=== PATIENT | male | born 1950 | race Caucasian/White ===

== ENCOUNTER 2019-06-15 10:13 | Emergency (ER) | payer BC, MEDICARE ==
--- NOTE | 2019-06-15 10:50 | XR ---
EXAMINATION TYPE: XR shoulder complete RT DATE OF EXAM: 06/15/2019 CLINICAL HISTORY: Right shoulder pain after fall TECHNIQUE: 2 views of the right shoulder are obtained. COMPARISON: None. FINDINGS: Anterior right shoulder dislocation is seen. No acute fracture is identified of the shoulde r. Visualized right ribs and lungs appear intact and unremarkable. Moderate acromioclavicular arthrop athy with downsloping spur of the distal acromion. IMPRESSION: Anterior right shoulder dislocation
[2019-06-15] MEDS ORDERED: ETOMIDATE 2 MG/ML 10 ML VIAL IVP STA (10:55)
--- NOTE | 2019-06-15 10:59 | ED ---
General Adult HPI - General Chief complaint: Extremity Injury, Upper Stated complaint: Fell shoulder dislocated Time Seen by Provider: 06/15/19 10:42 Source: patient, RN notes reviewed Mode of arrival: wheelchair Limitations: no limitations - History of Present Illness Initial comments: Patient is a pleasant 61-year-old male presenting to the emergency Department with complaints of right shoulder discomfort. Prior to arrival patient slipped on his deck and caught himself on a railing with his right arm. Patient felt his arm pop and believes that is out of socket. No history of similar symptoms previous. Patient has some tingling of his arm however does not have loss of sensation or weakness of the hand. No other areas of injury. No head injury or loss of consciousness. - Related Data Allergies Allergy/AdvReac Type Severity Reaction Status Date / Time No Known Allergies Allergy Verified 06/15/19 10:31 Review of Systems ROS Statement: Those systems with pertinent positive or pertinent negative responses have been documented in the HPI. ROS Other: All systems not noted in ROS Statement are negative. Constitutional: Denies: fever Eyes: Denies: eye pain ENT: Denies: ear pain Respiratory: Denies: cough Cardiovascular: Denies: chest pain Endocrine: Denies: fatigue Gastrointestinal: Denies: abdominal pain Genitourinary: Denies: dysuria Musculoskeletal: Reports: as per HPI. Denies: back pain Skin: Denies: rash Neurological: Denies: weakness Past Medical History Past Medical History: Hyperlipidemia, Hypertension, Myocardial Infarction ([place]) Additional Past Medical History / Comment(s): kidney transplant, heart problem History of Any Multi-Drug Resistant Organisms: None Reported Past Surgical History: Heart Catheterization Additional Past Surgical History / Comment(s): kidney transplant, dialysis shunt x 3 Past Psychological History: No Psychological Hx Reported Smoking Status: Never smoker Past Alcohol Use History: Daily Past Drug Use History: None Reported General Exam Limitations: no limitations General appearance: alert, in no apparent distress Head exam: Present: normocephalic Eye exam: Present: normal appearance, PERRL ENT exam: Present: normal oropharynx Neck exam: Present: normal inspection. Absent: tenderness Respiratory exam: Present: normal lung sounds bilaterally Cardiovascular Exam: Present: regular rate, normal rhythm Expanded Peripheral pulses: 2+: Radial (R) GI/Abdominal exam: Present: soft. Absent: tenderness Extremities exam: Present: other (Right anterior shoulder fullness and mild tenderness. Limited range of motion secondary to pain. Distally the extremity is neurovascularly intact.) Back exam: Present: normal inspection Neurological exam: Present: alert. Absent: motor sensory deficit Psychiatric exam: Present: normal affect, normal mood Skin exam: Present: normal color Course Vital Signs 06/15/19 06/15/19 06/15/19 10:32 11:21 11:35 Temperature 98.3 F 97.4 F L Pulse Rate 73 64 63 Respiratory 18 19 18 Rate Blood Pressure 145/71 140/73 135/79 O2 Sat by Pulse 96 98 100 Oximetry Procedures - Orthopedic Joint Reduction Joint #1 Consent Obtained: verbal consent Side: right Joint Reduction Location: shoulder Analgesia: procedural sedation Shoulder Technique Used (if applicable): traction/counter-traction Post-Reduction Neuro Exam: intact Post-Reduction Vascular Exam: intact Post Reduction X-Ray Obtained: Yes Post Reduction X-Ray Results: reduced Splint Applied: Yes Patient Tolerated Procedure: well, no complications - Procedural Sedation Procedural Sedation Start Time: 11:35 Procedural Sedation Stop Time: 12:00 Indications: fracture/dislocation reduction ASA Class: III Mallampati Airway Score: 2 Preparation: patient services rep applied, pulse oximeter, capnometry used IV Etomidate Dose (mgs): 20 Complications: none Interventions: oxygen applied Patient Tolerated Procedure: well, no complications Medical Decision Making - Radiology Data Radiology results: image reviewed (Right shoulder x-ray shows anterior inferior dislocation.) Disposition Clinical Impression: Dislocation of shoulder region Disposition: HOME SELF-CARE Condition: Stable Instructions (If sedation given, give patient instructions): Shoulder Dislocation (ED) Additional Instructions: Please follow-up with orthopedics in the next couple days for recheck. Also follow-up with primary care physician. Return for shoulder pain, weakness, sensation, worsening or changing symptoms or other concerns. Use sling provided. Is patient prescribed a controlled substance at d/c from ED?: No Referrals: Jose Antonio Escobar MD [Primary Care Provider] - 1-2 days Time of Disposition: 12:02
[2019-06-15] MEDS: HYDROmorphone 1 MG/ML 1 ML SYRINGE IVP STA (11:14)
[2019-06-15 11:23] VITALS: TEMP 97.4
--- NOTE | 2019-06-15 12:09 | XR ---
EXAMINATION TYPE: XR shoulder limited RT DATE OF EXAM: 06/15/2019 COMPARISON: NONE HISTORY: Post reduction TECHNIQUE: One view submitted FINDINGS: There is improved near anatomic alignment postreduction. Arthropathy of the shoulder noted. IMPRESSION: Near anatomic alignment postreduction
[2019-06-15 13:47] VITALS: BP 171/81; PULSE 72; RESP 16
== END 2019-06-15 13:45 | disposition home or self-care (01) ==
LOC: EC 10:13
DX: S43.004A Unspecified dislocation of right shoulder joint, initial encounter (principal); I10 Essential (primary) hypertension; I25.2 Old myocardial infarction; Z94.0 Kidney transplant status; X50.9XXA Other and unspecified overexertion or strenuous movements or postures, initial encounter
CPT/HCPCS: 73020; 73030; 99283; 23650; 99152; 99153; 96374; J1170

== ENCOUNTER → 2020-01-08 | Outpatient (CLI) | payer MEDICARE ==
--- NOTE | 2020-01-10 15:25 | PE ---
Nuclear medicine PET/CT HISTORY: Rectal carcinoma, initial Patient received 10.9 mCi F-18 FDG intravenously in delayed scanning was performed from the skull bas e to the mid thighs. Localization and attenuation correction CT scan was performed. No comparisons Neck and chest: There is no supraclavicular or cervical adenopathy. There is no mediastinal, axillary , or hilar adenopathy. There are coronary artery calcifications. There is a hiatal hernia present. Th ere is some thickening at the level of the hiatal hernia. Distal esophagus shows some associated hype rmetabolic uptake at this level. There is no evident lung mass, no pleural or pericardial effusion. ABDOMEN: There is no retroperitoneal adenopathy. No evident liver mass. Kidneys are atrophic and part ially calcified. Transplant kidney is present in the right lower quadrant. There is a large mass in the pelvis corresponding to the rectum measuring approximately 8.9 cm in AP dimension by 7.1 cm in transverse dimension. There is associated hypermetabolic uptake. No evident pe lvic adenopathy or free fluid. Osseous structures: Uptake in level of the proximal hamstring musculature may be due to posttraumatic change. No suspicious bone uptake is identified. Degenerative disc changes and facet arthropathy not ed in the lower lumbar spine. IMPRESSION: Distal esophageal uptake, recommend upper endoscopy. Findings compatible with patient's h istory of rectal carcinoma.
== END | disposition home or self-care (01) ==
LOC: RADPETMAIN 10:25
PROVIDERS: ATTEND Internal Medicine Hematology & Oncology
DX: C20 Malignant neoplasm of rectum (principal)
CPT/HCPCS: 78815; A9552

== ENCOUNTER 2020-04-21 09:26 | Inpatient (IN) | payer MEDICARE ==
[2020-04-20 12:16] VITALS: BMI 36.1
[~2020-04-21 09:26] MED LIST: ACETAMINOPHEN TAB 500 MG TAB PO ONE; DEXAMETHASONE SOD PHOSPHATE 4 MG/ML 1 ML VIAL IV ONE; HEPARIN SODIUM,PORCINE 5,000 UNIT/ML 1 ML VIAL SQ ONE; HYDROmorphone 0.5 MG/0.5 ML SYRINGE IVP PRN; LIDOCAINE 1% (10MG/ML) FOR IV START INTRADERMA PRN; ONDANSETRON 4 MG/2 ML VIAL IVP ONE; SCOPOLAMINE 1.5MG/72HR PATCH TRANSDERM ONE; metroNIDAZOLE-NS PMX 500 MG in SALINE 1 100ML.BAG IVPB ONE
[2020-04-21] MEDS: LACTATED RINGERS 1,000 ML IV SCH (10:20)
[2020-04-21 10:31] LABS: Glucose,Whole Blood 106 mg/dL (75-99)
[2020-04-21] MEDS ORDERED: fentaNYL (PF) 50 MCG/ML 2 ML AMP IVP ONE (10:49)
[2020-04-21] MEDS ORDERED: MIDAZOLAM 2 MG/2 ML VIAL IVP ONE (10:49)
[2020-04-21] MEDS ORDERED: NALOXONE 0.4 MG/ML 1 ML VIAL IV PRN (11:09)
--- NOTE | 2020-04-21 11:11 | P.ANPRN ---
Procedure Note - Anesthesia - Epidural/Spinal Epidural Continuous Date of Procedure: 04/21/20 Procedure Start Time: 10:49 Procedure Stop Time: 11:09 Location of Patient: PreOp Indication: Acute Post-Operative Pain, Analgesia, Requested by Surgeon Sedation Type: Sedate with meaningful contact maintained Preparation: Sterile Dressing Position: Sitting Catheter Depth at Skin (cm): 12 Catheter: Indwelling Needle Guage: 20 Injectate: Test Dose Lidocaine1.5% w/1:200,000 epi (3mL) Blood Aspirated: No Pain Paresthesia on Injection Noted: No Events: Uneventful and Well Tolerated
[2020-04-21 11:14] LABS: Calcium 9.3 mg/dL (8.4-10.2); Potassium 4.1 mmol/L (3.5-5.1)
[2020-04-21] MEDS ORDERED: ALVIMOPAN 12 MG CAPSULE PO ONE (11:23)
[2020-04-21] MEDS ORDERED: ROCURONIUM 10 MG/ML (10 ML VIAL) IV ONE (11:30)
[2020-04-21] MEDS ORDERED: NEOSTIGMINE 1 MG/ML 10 ML VIAL ONE (11:30)
[2020-04-21] MEDS ORDERED: PROPOFOL 10 MG/ML 20 ML VIAL IV ONE (11:30)
[2020-04-21] MEDS ORDERED: ePHEDrine SULFATE/0.9% NACL/PF 50 MG/5 ML SYRINGE IV ONE ×2 (11:30)
[2020-04-21] MEDS ORDERED: LIDOCAINE 1% INJ 10MG/ML (20 ML MDV) ONE (11:30)
[2020-04-21] MEDS ORDERED: HEPARIN SODIUM,PORCINE 5,000 UNIT/ML 1 ML VIAL ONE (11:30)
[2020-04-21] MEDS ORDERED: GLYCOPYRROLATE 0.2 MG/ML 2 ML VIAL ONE (11:30)
[2020-04-21] MEDS ORDERED: WATER FOR INJECTION, STERILE 10 ML VIAL IV ONE (11:30)
[2020-04-21 11:32] LABS: Anisocytosis Moderate; Basophils % (A) 0 %; Eosinophils % (A) 1 %; HCT 35.9 % (39.0-53.0); Hypochromasia Moderate; Lymphocytes # (A) 1.6 k/uL (1.0-4.8); Lymphocytes % (A) 23 %; MCH 27.8 pg (25.0-35.0); MCHC 30.8 g/dL (31.0-37.0); Monocytes # (A) 0.4 k/uL (0-1.0); Monocytes % (A) 5 %; Neutrophils # (A) 4.9 k/uL (1.3-7.7); Neutrophils % (A) 70 %; Platelet Count 204 k/uL (150-450); Poikilocytosis Slight; RBC 3.97 m/uL (4.30-5.90); RDW 20.7 % (11.5-15.5)
[2020-04-21] MEDS ORDERED: SODIUM CHLORIDE 0.9% 500 ML 500 ML IV ONE ×2 (11:35)
[2020-04-21 11:36] LABS: MCV 90.4 fL (80.0-100.0)
[2020-04-21] MEDS ORDERED: SODIUM CHLORIDE 0.9% 1,000 ML IV ONE (13:45)
[2020-04-21] MEDS ORDERED: LACTATED RINGERS 1,000 ML IV ONE ×2 (14:48→16:16)
--- NOTE | 2020-04-21 17:18 | P.OP ---
Date of Procedure: 04/21/20 Procedure(s) Performed: PREOPERATIVE DIAGNOSIS: Rectal cancer POSTOPERATIVE DIAGNOSIS: Same PROCEDURE: Abdominal perineal resection SURGEON: Shanell EBL: 200 mL ANESTHESIA: General COMPLICATIONS: None OPERATIVE PROCEDURE: Patient place in the operative table in the supine position. The patient was placed under general anesthesia. Patient was then placed in lithotomy. Sheldon catheter was placed and following that the scrotum was sutured to the abdominal wall using 2-0 Vicryl sutures. A 2-0 Vicryl purses tring suture at the anus was also utilized. The abdomen and perineum was prepped and draped in usual sterile fashion. A vertical incision was made extending from the supraumbilical location to the suprapubic location. The fascia was divided as well. A few small adhesions were identified and lysed using electrocautery. The Bookwalter retractor was utilized. The sigmoid colon was mobilized using electrocautery and blunt dissection. The patient in the mid sigmoid colon had a section of bowel that appeared somewhat firm and I was concerned about the possibility of an additional mass there. The bowel was divided just proximal to that location using a linear 75 stapler. The mesentery was divided using the LigaSure device and 0 silk ties. Our dissection took place down to the sacral promontory posteriorly. Care was taken to avoid injury to the right and left ureters. These were visualized during the dissection. The peritoneum was incised along the lateral gutters and anteriorly as well using electrocautery. Posterior dissection continued using both blunt dissection and the LigaSure device. Full mesorectal excision was performed. The lateral stalks were divided also using LigaSure device. Once we were able to reach posteriorly to the tip of the coccyx I went down to the perineum. A elliptical incision was made around the anus. The superficial tissues and muscular layers were divided using electrocautery. Posteriorly we were able to enter the pelvis. Blunt dissection ensued. Further dissection laterally took place using electrocautery and the LigaSure device. The size of the proximal colon would not fit through this defect in the pelvis because of the induration that was present. I divided the bowel at the distal sigmoid colon using the LigaSure device and stapler. We were then able to take the distal sigmoid colon and rectum and invert this into the perineum. The proximal bowel was passed off labeled sigmoid colon. The proximal portion of the staple line was marked using a silk suture. At that point the perineal portion of our resection continued using both LigaSure and electrocautery. The rectum was most adherent anteriorly and there was significant induration there. I was concerned that the malignancy was in this location. Hopefully we'll we were visualizing was post radiation effects. Care was taken to avoid injury to the prostatic urethra. In dissecting the rectum anteriorly 2 defects were seen anteriorly however no rectal wall was left in the pelvis. Specimen was passed off labeled rectum. Pelvic irrigation took place. One small area of bleeding was controlled using electrocautery. 2 drains were placed into the pelvis exiting through the right and left buttocks. These were sutured to the skin using a 3-0 silk stitch. Formal closure of the perineal layers then took place using inverted 2-0 Vicryl sutures. The skin was closed using a running 4-0 Vicryl suture. Sterile dressings were later applied. The abdominal portion was then readdressed. The drains were cut and placed within the pelvis. Again no further bleeding was seen. The peritoneal lining of the pelvis was reapproximated using a running 3- 0 Vicryl suture. We then mobilized the proximal sigmoid colon further until we had adequate length to reach the abdominal wall. We had marked preoperatively a location in the left midabdomen for permanent ostomy placement. A circular incision was made in the left midabdomen. Dissection through the subcutaneous fat and fascia took place using electrocautery. I bluntly entered the peritoneal cavity and this was further bluntly opened. The bowel was brought out through this defect in the left midabdomen. 3-0 silk sutures were used to suture the peritoneum to the colon. The small bowel and liver were palpated during the procedure and felt normal. The midline fascia was then reapproximated using 3 separate double-stranded #1 PDS sutures. The subcutaneous tissues were irrigated. The subcutaneous tissues were closed using 2-0 Vicryl sutures. The skin was then closed using mayra. The ostomy was then addressed. A portion of the pericolonic fat was removed using the LigaSure device. The staple line was then removed using electrocautery. The ostomy was then matured in a [place] fashion using interrupted 3-0 Vicryl sutures. An ostomy appliance was then applied. Sterile dressings were then applied to the midline incision. DISPOSITION: Stable to recovery room
[2020-04-21] MEDS: ROPIVACAINE 250 MG, HYDROMORPHONE (PF) 5 MG in SODIUM CHLORIDE 0.9% 200 ML EPIDURAL PRN (17:47)
[2020-04-21] MEDS: diphenhydrAMINE 50 MG/ML 1 ML VIAL IVP PRN (23:01)
[2020-04-21] MEDS: D5-0.45% NACL WITH KCL 20MEQ/L 1,000 ML IV SCH ×2 (23:01→23:02)
[2020-04-21] MEDS: FAMOTIDINE 20 MG/2 ML VIAL IV SCH (23:02)
[2020-04-22] MEDS: diphenhydrAMINE 50 MG/ML 1 ML VIAL IVP PRN ×3 (05:37→18:17)
--- NOTE | 2020-04-22 06:57 | P.PN ---
Progress Note - Text Date: 04/22/2020 Time: 06:58 The patient is status post, abdominal perineal resection, postoperative day number 1 The patient has no complaints of nausea vomiting or headache. The patient does not complain of any lower extremity numbness or weakness. The epidural is running at 8 mL per hour. VAS 0-1-10. The epidural will be maintained and adjusted as needed.
[2020-04-22 07:26] LABS: Anisocytosis Moderate; Basophils % (A) 0 %; Eosinophils % (A) 0 %; HCT 30.4 % (39.0-53.0); Hypochromasia Marked; Lymphocytes # (A) 1.1 k/uL (1.0-4.8); Lymphocytes % (A) 11 %; MCH 28.9 pg (25.0-35.0); MCHC 31.3 g/dL (31.0-37.0); MCV 92.4 fL (80.0-100.0); Mean Platelet Volume 7.9; Monocytes # (A) 0.6 k/uL (0-1.0); Monocytes % (A) 6 %; Neutrophils # (A) 8.3 k/uL (1.3-7.7); Neutrophils % (A) 83 %; Platelet Count 156 k/uL (150-450); Poikilocytosis Slight; RBC 3.29 m/uL (4.30-5.90); RDW 20.4 % (11.5-15.5)
[2020-04-22 07:35] LABS: HGB 9.5 gm/dL (13.0-17.5)
[2020-04-22] MEDS: FAMOTIDINE 20 MG/2 ML VIAL IV SCH ×2 (07:39→22:50)
[2020-04-22] MEDS: ALVIMOPAN 12 MG CAPSULE PO SCH ×2 (07:39→22:49)
[2020-04-22] MEDS: LACTATED RINGERS 1,000 ML IV SCH (07:39)
[2020-04-22] MEDS: HEPARIN SODIUM,PORCINE 5,000 UNIT/ML 1 ML VIAL SQ SCH ×4 (07:39→22:57)
[2020-04-22] MEDS: allopurinoL 100 MG TAB PO SCH ×2 (08:12→22:49)
[2020-04-22] MEDS: MULTIVITAMINS, THERA 1 EACH TAB PO SCH (08:12)
[2020-04-22] MEDS: METOPROLOL TARTRATE 50 MG TAB PO SCH ×2 (08:12→22:49)
[2020-04-22] MEDS: hydroCHLOROthiazide 12.5 MG CAP PO SCH (08:12)
[2020-04-22] MEDS: amLODIPine 5 MG TAB PO SCH (08:12)
[2020-04-22] MEDS: SERTRALINE 50 MG TAB PO SCH (08:12)
[2020-04-22] MEDS: ISOSORBIDE MONONITRATE ER 30 MG TAB.ER.24H PO SCH (08:12)
--- NOTE | 2020-04-22 08:22 | P.CONS ---
History of Present Illness - Reason for Consult Consult date: 04/22/20 - Chief Complaint Medical management rectal cancer - History of Present Illness This is a history and physical and consultation on a 70-year-old white male with known history of renal transplant who has developed rectal cancer. He is had chemotherapy and adjuvant treatment and is now postop day #1 abdominal perineal resection. The patient states appropriate pain control. We will restart home medications once nothing by mouth is cleared. Pain is nominal Review of Systems Constitutional: Denies chills, Denies fever Eyes: denies blurred vision, denies pain Ears, nose, mouth and throat: Denies headache, Denies sore throat Cardiovascular: Denies chest pain, Denies shortness of breath Respiratory: Denies cough Gastrointestinal: Denies abdominal pain, Denies diarrhea, Denies nausea, Denies vomiting Musculoskeletal: Denies myalgias Past Medical History Past Medical History: Cancer, Hyperlipidemia, Hypertension, Myocardial Infarction ([place]), Renal Disease Additional Past Medical History / Comment(s): kidney transplant, heart problem, radiation and chemo-last 03/17/20 for colorectal cancer/esophageal cancer, gout, Last Myocardial Infarction Date:: unknown History of Any Multi-Drug Resistant Organisms: None Reported Past Surgical History: Heart Catheterization Additional Past Surgical History / Comment(s): kidney transplant 2008, dialysis fistual x 3/later removed, nicky cataract with implants, colonoscopies, peritoneal dialysis catheter/later removed Past Anesthesia/Blood Transfusion Reactions: Motion Sickness Past Psychological History: No Psychological Hx Reported Smoking Status: Never smoker Past Alcohol Use History: None Reported Additional Past Alcohol Use History / Comment(s): quit smoking cigars 25 yrs ago Past Drug Use History: None Reported - Past Family History Sister(s) Family Medical History: Cancer Medications and Allergies Home Medications Medication Instructions Recorded Confirmed Type Acetaminophen [Tylenol] 500 mg PO HS 04/20/20 04/21/20 History Allopurinol [Zyloprim] 200 mg PO BID 04/20/20 04/21/20 History Aspirin [Adult Low Dose Aspirin EC] 81 mg PO DAILY 04/20/20 04/21/20 History Hydrochlorothiazide 12.5 mg PO QAM 04/20/20 04/21/20 History [hydroCHLOROthiazide] Isosorbide Mononitrate ER [Imdur] 30 mg PO DAILY 04/20/20 04/21/20 History Melatonin 5 mg PO HS 04/20/20 04/21/20 History Metoprolol Tartrate [Lopressor] 50 mg PO BID 04/20/20 04/21/20 History Multivitamins, Thera [Multivitamin 1 tab PO DAILY 04/20/20 04/21/20 History (formulary)] Pantoprazole Sodium [Protonix] 40 mg PO BID 04/20/20 04/21/20 History Sertraline [Zoloft] 50 mg PO DAILY 04/20/20 04/21/20 History amLODIPine [Norvasc] 5 mg PO DAILY 04/20/20 04/21/20 History cycloSPORINE [cycloSPORINE (GEQ 75 mg PO BID 04/20/20 04/21/20 History for SandIMMUNE)] predniSONE 5 mg PO BID 04/20/20 04/21/20 History Allergies Allergy/AdvReac Type Severity Reaction Status Date / Time No Known Allergies Allergy Verified 04/21/20 09:51 Physical Exam Vitals: Vital Signs Temp Pulse Pulse Resp BP BP Pulse Ox 04/22/20 07:00 98.3 F 89 18 129/64 95 04/22/20 02:15 98.2 F 82 16 121/59 95 04/22/20 00:40 82 04/21/20 20:15 82 103/56 93 L 04/21/20 20:00 85 102/59 94 L 04/21/20 19:45 80 108/60 94 L 04/21/20 19:30 86 106/59 97 04/21/20 19:15 91 108/64 97 04/21/20 19:00 88 105/64 97 04/21/20 18:45 87 109/62 97 04/21/20 18:30 97.5 F L 90 16 116/62 93 L 04/21/20 18:00 80 16 111/56 94 L 04/21/20 17:46 80 16 115/68 97 04/21/20 17:30 84 16 112/66 97 04/21/20 17:15 81 16 111/67 100 04/21/20 16:59 98.1 F 93 16 127/72 99 04/21/20 11:08 61 16 131/79 100 04/21/20 09:51 98.1 F 60 16 150/86 96 Intake and Output 04/21/20 04/22/20 04/22/20 22:59 06:59 14:59 Intake Total 764 Output Total 450 995 Balance 314 -995 Intake: IV 764 Output: Drainage 70 Lower Posterior lower 70 perineal area Urine 250 825 Stool 100 Estimated Blood Loss 200 Other: Voiding Method Indwelling Catheter Weight 111.1 kg - Constitutional General appearance: no acute distress - EENT Eyes: abnormal pupil - Neck Neck: no lymphadenopathy - Respiratory Respiratory: bilateral: CTA - Cardiovascular Rhythm: regular Heart sounds: normal: S1, S2 Abnormal Heart Sounds: no S3 Gallop - Gastrointestinal General gastrointestinal: soft, no tenderness - Integumentary Integumentary: no cellulitis - Neurologic Neurologic: CNII-XII intact Results CBC & Chem 7: 04/22/20 06:33 04/21/20 10:22 Labs: Abnormal Lab Results - Last 24 Hours (Table) 04/21/20 04/21/20 04/21/20 Range/Units 10:19 10:22 10:22 RBC 3.97 L (4.30-5.90) m/uL Hgb 11.0 L (13.0-17.5) gm/dL Hct 35.9 L (39.0-53.0) % MCHC 30.8 L (31.0-37.0) g/dL RDW 20.7 H (11.5-15.5) % Neutrophils # (1.3-7.7) k/uL Glucose 103 H (74-99) mg/dL POC Glucose (mg/dL) 106 H (75-99) mg/dL 04/22/20 Range/Units 06:33 RBC 3.29 L (4.30-5.90) m/uL Hgb 9.5 L D (13.0-17.5) gm/dL Hct 30.4 L (39.0-53.0) % MCHC (31.0-37.0) g/dL RDW 20.4 H (11.5-15.5) % Neutrophils # 8.3 H (1.3-7.7) k/uL Glucose (74-99) mg/dL POC Glucose (mg/dL) (75-99) mg/dL Assessment and Plan (1) History of rectal cancer Current Visit: Yes Status: Acute Code(s): Z85.048 - PRSNL HX OF MALIG NEOPLM OF RECTUM, RECTOSIG JUNCT, AND ANUS SNOMED Code(s): 557696218 (2) History of renal transplant Current Visit: Yes Status: Acute Code(s): Z94.0 - KIDNEY TRANSPLANT STATUS SNOMED Code(s): 196828412 Plan: DVT and GI prophylaxis per surgery. We'll go ahead and reconcile home medications once nothing by mouth is lifted. New graft check CBC and CMP in a.m. See orders otherwise. Dr. Ziegler's group will covering for the weekend.
[2020-04-22] MEDS: PANTOPRAZOLE 40 MG TABLET PO SCH ×2 (10:49→18:09)
[2020-04-22] MEDS: predniSONE 5 MG TAB PO SCH ×2 (10:49→22:57)
[2020-04-22] MEDS: cycloSPORINE 25 MG CAP PO SCH ×2 (10:49→22:57)
--- NOTE | 2020-04-22 11:20 | P.NPCON ---
History of Present Illness - Reason for Consult chronic renal failure - History of Present Illness Reason for consultation: Chronic kidney disease and renal transplant management History of present illness: A line patient is a 70-year-old male seen in renal consultation for chronic kidney disease and renal present management. Patient received a donor renal allograft in 2008. His baseline creatinine is in the range of 1-1.2. He is maintained on cyclosporine 75 mg twice daily and prednisone 5 mg twice daily at home. Patient has history of rectal cancer and underwent abdominal perineal resection yesterday. He now has a colostomy. He is maintained on IV fluids. Blood pressures controlled. Denies any pain. He's tolerating clear liquid diet. No chest pain or shortness of breath. No edema. No fever or chills. GFR is at baseline. Vital signs are stable. General: The patient appeared well nourished and normally developed. HEENT: Head exam is unremarkable. Neck is without jugular venous distension. LUNGS: Breath sounds decreased. HEART: Rate and Rhythm are regular. ABDOMEN: Soft, nontender. EXTREMITITES: No edema. Past Medical History Past Medical History: Cancer, Hyperlipidemia, Hypertension, Myocardial Infarction ([place]), Renal Disease Additional Past Medical History / Comment(s): kidney transplant, heart problem, radiation and chemo-last 03/17/20 for colorectal cancer/esophageal cancer, gout, Last Myocardial Infarction Date:: unknown History of Any Multi-Drug Resistant Organisms: None Reported Past Surgical History: Heart Catheterization Additional Past Surgical History / Comment(s): kidney transplant 2008, dialysis fistual x 3/later removed, nicky cataract with implants, colonoscopies, peritoneal dialysis catheter/later removed Past Anesthesia/Blood Transfusion Reactions: Motion Sickness Past Psychological History: No Psychological Hx Reported Smoking Status: Never smoker Past Alcohol Use History: None Reported Additional Past Alcohol Use History / Comment(s): quit smoking cigars 25 yrs ago Past Drug Use History: None Reported - Past Family History Sister(s) Family Medical History: Cancer Medications and Allergies Home Medications Medication Instructions Recorded Confirmed Type Acetaminophen [Tylenol] 500 mg PO HS 04/20/20 04/21/20 History Allopurinol [Zyloprim] 200 mg PO BID 04/20/20 04/21/20 History Aspirin [Adult Low Dose Aspirin EC] 81 mg PO DAILY 04/20/20 04/21/20 History Hydrochlorothiazide 12.5 mg PO QAM 04/20/20 04/21/20 History [hydroCHLOROthiazide] Isosorbide Mononitrate ER [Imdur] 30 mg PO DAILY 04/20/20 04/21/20 History Melatonin 5 mg PO HS 04/20/20 04/21/20 History Metoprolol Tartrate [Lopressor] 50 mg PO BID 04/20/20 04/21/20 History Multivitamins, Thera [Multivitamin 1 tab PO DAILY 04/20/20 04/21/20 History (formulary)] Pantoprazole Sodium [Protonix] 40 mg PO BID 04/20/20 04/21/20 History Sertraline [Zoloft] 50 mg PO DAILY 04/20/20 04/21/20 History amLODIPine [Norvasc] 5 mg PO DAILY 04/20/20 04/21/20 History cycloSPORINE [cycloSPORINE (GEQ 75 mg PO BID 04/20/20 04/21/20 History for SandIMMUNE)] predniSONE 5 mg PO BID 04/20/20 04/21/20 History Allergies Allergy/AdvReac Type Severity Reaction Status Date / Time No Known Allergies Allergy Verified 04/21/20 09:51 Physical Exam Vitals: Vital Signs Temp Pulse Pulse Resp BP Pulse Ox 04/22/20 08:00 80 89 18 04/22/20 07:00 98.3 F 89 18 129/64 95 04/22/20 02:15 98.2 F 82 16 121/59 95 04/22/20 00:40 82 04/21/20 20:15 82 103/56 93 L 04/21/20 20:00 85 102/59 94 L 04/21/20 19:45 80 108/60 94 L 04/21/20 19:30 86 106/59 97 04/21/20 19:15 91 108/64 97 04/21/20 19:00 88 105/64 97 04/21/20 18:45 87 109/62 97 04/21/20 18:30 97.5 F L 90 16 116/62 93 L 04/21/20 18:00 80 16 111/56 94 L 04/21/20 17:46 80 16 115/68 97 04/21/20 17:30 84 16 112/66 97 04/21/20 17:15 81 16 111/67 100 04/21/20 16:59 98.1 F 93 16 127/72 99 04/21/20 11:08 61 16 131/79 100 Intake and Output 04/21/20 04/22/20 04/22/20 22:59 06:59 14:59 Intake Total 764 Output Total 450 995 100 Balance 314 -995 -100 Intake: IV 764 Output: Drainage 70 Lower Posterior lower 70 perineal area Urine 250 825 Stool 100 100 Estimated Blood Loss 200 Other: Voiding Method Indwelling Catheter Indwelling Catheter Weight 111.1 kg Results - Lab Results Most recent lab results Calcium 9.3 mg/dL (8.4-10.2) 04/21/20 10:22 04/22/20 06:33 04/21/20 10:22 Assessment and Plan Plan: Assessment: 1. 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 Baseline creatinine 1-1.2. Currently at baseline. 2. Status post donor renal allograft in 2008. 3. History of rectal cancer status post abdominoperineal resection with colostomy. 4. Hypertension with chronic kidney disease. Controlled. Plan: Decreased rate of IV fluids to 75 mL an hour. Hep-Lock as Diet Is Advanced. Maintain cyclosporine and prednisone. Continue to monitor renal function and urine output. Thank you for the consultation. I will continue to follow the patient with you during his hospital stay.
[2020-04-22 11:29] LABS: Carbon Dioxide 22.2 mmol/L (21.6-31.8); Potassium 4.4 mmol/L (3.5-5.5)
[2020-04-22 11:30] LABS: African American GFR (CKD) 71.1 (60.0-200.0); Anion Gap 7.8 mmol/L (4.00-12.00); Calcium 8.5 mg/dL (8.7-10.3); Non-African American GFR(CKD) 61.3 (60.0-200.0)
--- NOTE | 2020-04-22 12:34 | P.PN ---
Subjective Progress Note Date: 04/22/20 Principal diagnosis: Rectal cancer Patient doing fairly well after abdominal perineal resection yesterday. Denies any significant pain. Adequate urine output. Drains serosanguineous in appearance. White blood cell count normal. Hemoglobin did drop somewhat to 9.5. Suspect dilution currently. Objective - Vital Signs Vital signs: Vital Signs Temp 98.3 F 04/22/20 07:00 Pulse 89 04/22/20 08:00 Resp 18 04/22/20 08:00 BP 129/64 04/22/20 07:00 Pulse Ox 95 04/22/20 07:00 Intake & Output 04/21/20 04/22/20 04/22/20 18:59 06:59 18:59 Intake Total 4314 Output Total 450 995 100 Balance 3864 -995 -100 Weight 111.1 kg Intake: IV 4314 Output: Drainage 70 Lower Posterior lower 70 perineal area Urine 250 825 Stool 100 100 Estimated Blood Loss 200 Other: Voiding Method Indwelling Catheter Indwelling Catheter - Exam Abdomen: Midline incision clean and dry, ostomy pink without activity, perineal incision without drainage - Labs CBC & Chem 7: 04/22/20 06:33 04/22/20 06:33 Labs: Abnormal Lab Results - Last 24 Hours (Table) 04/22/20 04/22/20 Range/Units 06:33 06:33 RBC 3.29 L (4.30-5.90) m/uL Hgb 9.5 L D (13.0-17.5) gm/dL Hct 30.4 L (39.0-53.0) % RDW 20.4 H (11.5-15.5) % Neutrophils # 8.3 H (1.3-7.7) k/uL Sodium 133 L (135-145) mmol/L Calcium 8.5 L (8.7-10.3) mg/dL Assessment and Plan (1) History of rectal cancer Narrative/Plan: Patient overall doing fairly well. Labs noted. Follow hemoglobin and creatinine. Continue liquid diet only for now. Keep Sheldon in place. Ambulate. Monitor perineal incision site for dehiscence. Current Visit: Yes Status: Acute Code(s): Z85.048 - PRSNL HX OF MALIG NEOPLM OF RECTUM, RECTOSIG JUNCT, AND ANUS SNOMED Code(s): 232345809
[2020-04-22] MEDS: D5-0.45% NACL WITH KCL 20MEQ/L 1,000 ML IV SCH (13:31)
[2020-04-22] MEDS: SODIUM CHLORIDE 0.9% 1,000 ML IV SCH (18:10)
[2020-04-22] MEDS: ROPIVACAINE 250 MG, HYDROMORPHONE (PF) 5 MG in SODIUM CHLORIDE 0.9% 200 ML EPIDURAL PRN (21:07)
[2020-04-22] MEDS: MELATONIN 5 MG TABLET PO SCH (22:49)
[2020-04-22] MEDS: ACETAMINOPHEN TAB 500 MG TAB PO SCH (22:50)
[2020-04-23] MEDS: HYDROmorphone 1 MG/ML 1 ML SYRINGE IVP PRN ×4 (01:32→22:28)
[2020-04-23 06:28] LABS: Anisocytosis Moderate; Basophils % (A) 0 %; Eosinophils # (A) 0.1 k/uL (0-0.7); Eosinophils % (A) 1 %; HCT 26.7 % (39.0-53.0); HGB 8.6 gm/dL (13.0-17.5); Hypochromasia Moderate; Lymphocytes % (A) 14 %; MCH 29.1 pg (25.0-35.0); MCV 90.9 fL (80.0-100.0); Mean Platelet Volume 8.9; Monocytes # (A) 0.3 k/uL (0-1.0); Monocytes % (A) 5 %; Neutrophils # (A) 5.7 k/uL (1.3-7.7); Neutrophils % (A) 79 %; Platelet Count 155 k/uL (150-450); Poikilocytosis Slight; RBC 2.94 m/uL (4.30-5.90); RDW 20.3 % (11.5-15.5); WBC 7.2 k/uL (3.8-10.6)
[2020-04-23] MEDS: LACTATED RINGERS 1,000 ML IV SCH (08:25)
[2020-04-23] MEDS: hydroCHLOROthiazide 12.5 MG CAP PO SCH (08:34)
[2020-04-23] MEDS: FAMOTIDINE 20 MG/2 ML VIAL IV SCH ×2 (08:34→22:05)
[2020-04-23] MEDS: MULTIVITAMINS, THERA 1 EACH TAB PO SCH (08:34)
[2020-04-23] MEDS: HEPARIN SODIUM,PORCINE 5,000 UNIT/ML 1 ML VIAL SQ SCH ×2 (08:34→15:07)
[2020-04-23] MEDS: ISOSORBIDE MONONITRATE ER 30 MG TAB.ER.24H PO SCH (08:35)
[2020-04-23] MEDS: METOPROLOL TARTRATE 50 MG TAB PO SCH ×2 (08:35→22:02)
[2020-04-23] MEDS: amLODIPine 5 MG TAB PO SCH (08:35)
[2020-04-23] MEDS: allopurinoL 100 MG TAB PO SCH ×2 (08:35→22:02)
[2020-04-23] MEDS: PANTOPRAZOLE 40 MG TABLET PO SCH ×2 (08:35→16:55)
[2020-04-23] MEDS: SERTRALINE 50 MG TAB PO SCH (08:35)
[2020-04-23] MEDS: ALVIMOPAN 12 MG CAPSULE PO SCH ×2 (08:35→22:02)
[2020-04-23] MEDS: cycloSPORINE 25 MG CAP PO SCH ×2 (08:36→22:03)
[2020-04-23] MEDS: predniSONE 5 MG TAB PO SCH (08:36)
[2020-04-23] MEDS: SODIUM CHLORIDE 0.9% 1,000 ML IV SCH (08:38)
[2020-04-23 09:42] LABS: Albumin/Globulin Ratio 1.67 (1.60-3.17); Anion Gap 4.5 mmol/L (4.00-12.00); BUN/Creat Ratio 17.27 Ratio (12.00-20.00); Calcium 8.4 mg/dL (8.7-10.3); Carbon Dioxide 26.5 mmol/L (21.6-31.8); Globulin 1.8 g/dL (1.6-3.3); Magnesium 1.7 mg/dL (1.5-2.4); Non-African American GFR(CKD) 68.1 (60.0-200.0); Total Protein 4.8 g/dL (6.2-8.2)
--- NOTE | 2020-04-23 11:52 | P.PN ---
Progress Note - Text Progress Note Date: 04/23/20 Patient resting comfortably in his bed. He is status post abdominal perineal resection. He has no complaints pain. On exam vital signs are stable. Abdomen soft. Incision site is clean dry tach. Colostomy has minimal gas in the appliance. Status post APR. Patient will continue have supportive care.
[2020-04-23] MEDS ORDERED: HYDROmorphone 0.5 MG/0.5 ML SYRINGE IVP PRN (13:50)
[2020-04-23] MEDS: ONDANSETRON 4 MG/2 ML VIAL IVP PRN (14:53)
--- NOTE | 2020-04-23 15:37 | PN ---
PROGRESS NOTE Patient is seen for followup for post-transplant care. His renal function is stable with serum creatinine staying at about 1.0-1.1 mg/dL. Patient has good urine output. He has an indwelling Sheldon catheter. PHYSICAL EXAMINATION: Blood pressure is 107/63, heart rate 65 per minute, he is afebrile. Examination of the heart S1, S2. Examination of the lungs, bilateral breath sounds are heard. Abdomen is soft, nontender. Examination of lower extremities shows no evidence of edema. [employer] exam grossly intact. LAB: Show hemoglobin 8.6, sodium 137, potassium 4.0, chloride 106, creatinine 1.1 mg/dL. ASSESSMENT: 1. Status post -donor kidney transplant in 2008. Maintained on cyclosporine and prednisone with stable renal function. 2. Rectal cancer status post abdominoperineal resection. Currently with a colostomy. PLAN: Continue current immunosuppressive medications. Follow up as outpatient. Monitor blood pressure. Avoid hypotension. MMODL / IJN: [id number] /
--- NOTE | 2020-04-23 18:52 | PN ---
PROGRESS NOTE DATE OF SERVICE: 04/23/2020 I am covering for Dr. Escobar. This 70-year-old gentleman admitted with rectal cancer, underwent abdominoperineal resection by Dr. Reece. The patient is closely monitored. No chest pain. No palpitations. No fever. PHYSICAL EXAMINATION: Alert and oriented x3. Pulse 72, blood pressure is 120/60, respiration 18, temperature 98.4, pulse ox 93% on room air. HEENT: Conjunctivae normal. Oral mucosa moist. NECK: No jugular venous distention. No lymph node enlargement. CARDIOVASCULAR: S1, S2, muffled. No S3, no S4, RESPIRATORY: Diminished breath sounds at the bases. No rhonchi, no crackles. ABDOMEN: Soft, nontender. Status post surgery. LEGS: No edema, no swelling. NERVOUS SYSTEM: No focal motor or sensory deficits. LABS: WBC 7.2, hemoglobin is 8.6, calcium is 8.4. ASSESSMENT: 1. Status post abdominoperineal resection for rectal cancer. 2. Anemia as expected postop. 3. History of renal transplantation. 4. Hyponatremia. 5. History of hyperlipidemia. 6. History of hypertension. 7. History of myocardial infarction. 8. History of gout. 9. History of cardiac catheterization. 10.History of motion sickness. 11.FULL CODE. RECOMMENDATIONS AND DISCUSSION: In this 70-year-old gentleman who presented with multiple complex medical issues, we will monitor the patient closely, continue the current management, continue symptomatic treatment. I recommend to monitor the hemoglobin serially. Otherwise, continue the rest of medications. Closely follow with surgery. Aspirin may be restarted when okay with Surgery and continue to monitor. Further recommendations to follow. MMODL / IJN: [id number] /
[2020-04-23] MEDS: METOCLOPRAMIDE 5 MG/ML 2 ML VIAL IVP PRN (19:41)
[2020-04-23] MEDS: MELATONIN 5 MG TABLET PO SCH (22:02)
[2020-04-23] MEDS: ACETAMINOPHEN TAB 500 MG TAB PO SCH (22:03)
[2020-04-23] MEDS: predniSONE 10 MG TAB PO SCH (22:05)
[2020-04-24] MEDS: HEPARIN SODIUM,PORCINE 5,000 UNIT/ML 1 ML VIAL SQ SCH ×3 (00:23→15:34)
[2020-04-24] MEDS: SODIUM CHLORIDE 0.9% 1,000 ML IV SCH ×2 (06:29→21:58)
[2020-04-24 06:49] LABS: Anisocytosis Moderate; Basophils % (A) 0 %; Eosinophils % (A) 1 %; HCT 27.7 % (39.0-53.0); HGB 8.8 gm/dL (13.0-17.5); Hypochromasia Moderate; Lymphocytes % (A) 18 %; MCHC 31.8 g/dL (31.0-37.0); MCV 91.1 fL (80.0-100.0); Mean Platelet Volume 7.8; Monocytes # (A) 0.3 k/uL (0-1.0); Monocytes % (A) 6 %; Neutrophils # (A) 4.3 k/uL (1.3-7.7); Neutrophils % (A) 75 %; Platelet Count 166 k/uL (150-450); RBC 3.04 m/uL (4.30-5.90); RDW 20.2 % (11.5-15.5); WBC 5.8 k/uL (3.8-10.6)
[2020-04-24] MEDS: LACTATED RINGERS 1,000 ML IV SCH (08:37)
[2020-04-24] MEDS: FAMOTIDINE 20 MG/2 ML VIAL IV SCH ×2 (08:42→21:50)
[2020-04-24] MEDS: allopurinoL 100 MG TAB PO SCH ×2 (08:43→21:50)
[2020-04-24] MEDS: ALVIMOPAN 12 MG CAPSULE PO SCH ×2 (08:43→21:50)
[2020-04-24] MEDS: PANTOPRAZOLE 40 MG TABLET PO SCH ×2 (08:43→17:03)
[2020-04-24] MEDS: SERTRALINE 50 MG TAB PO SCH (08:43)
[2020-04-24] MEDS: predniSONE 10 MG TAB PO SCH ×2 (08:43→21:51)
[2020-04-24] MEDS: hydroCHLOROthiazide 12.5 MG CAP PO SCH (08:43)
[2020-04-24] MEDS: MULTIVITAMINS, THERA 1 EACH TAB PO SCH (08:44)
[2020-04-24] MEDS: METOPROLOL TARTRATE 50 MG TAB PO SCH ×2 (08:44→21:50)
[2020-04-24] MEDS: cycloSPORINE 25 MG CAP PO SCH ×2 (08:44→21:50)
[2020-04-24] MEDS: amLODIPine 5 MG TAB PO SCH (08:44)
[2020-04-24] MEDS: ASPIRIN 81 MG PO SCH (08:44)
[2020-04-24] MEDS: ISOSORBIDE MONONITRATE ER 30 MG TAB.ER.24H PO SCH (08:44)
[2020-04-24 09:35] LABS: African American GFR (CKD) 100.6 (60.0-200.0); Anion Gap 8.2 mmol/L (4.00-12.00); BUN/Creat Ratio 15.56 Ratio (12.00-20.00); Calcium 8.5 mg/dL (8.7-10.3); Carbon Dioxide 26.8 mmol/L (21.6-31.8); Non-African American GFR(CKD) 86.8 (60.0-200.0); Potassium 3.7 mmol/L (3.5-5.5)
--- NOTE | 2020-04-24 10:20 | P.PN ---
Progress Note - Text Progress Note Date: 04/24/20 The patient has some complaints of incisional pain. Patient states his pain is also the peritoneum over his MORGAN drains are. On exam vital signs are stable. Abdomen soft. Incisions clean and intact. Status post abdominal perineal resection. Patient will receive supportive care.
[2020-04-24] MEDS: ONDANSETRON 4 MG/2 ML VIAL IVP PRN (10:53)
--- NOTE | 2020-04-24 13:31 | PN ---
PROGRESS NOTE Patient is seen for followup for post-transplant care. He is currently resting comfortably. He is maintained on clear liquid diet. Patient continues to have some drainage noted from his surgical drains. He does not complain of significant pain today. PHYSICAL EXAMINATION: Blood pressure is 151/75, heart rate 71 per minute, he is afebrile. Examination of the heart S1, S2. Examination of the lungs, bilateral breath sounds are heard. Abdomen is soft, minimal tenderness. Examination of lower extremities shows no edema. LAB: Show hemoglobin 8.8, sodium 141, potassium 3.7, BUN 14, serum creatinine 0.9. ASSESSMENT: 1. Status post -donor transplant, serum creatinine at baseline. Continue current immunosuppressive regimen. 2. Anemia secondary to gastrointestinal bleed with underlying colon cancer status post surgery. No active bleeding noted currently. Will check iron profile. 3. Hypertension, currently stable. PLAN: Continue current immunosuppressive medications. Check iron profile for possible IV iron prior to discharge. MMODL / IJN: [id number] /
[2020-04-24] MEDS: ACETAMINOPHEN TAB 500 MG TAB PO SCH (21:49)
[2020-04-24] MEDS: MELATONIN 5 MG TABLET PO SCH (21:50)
--- NOTE | 2020-04-24 22:59 | PN ---
PROGRESS NOTE DATE OF SERVICE: 04/24/2020 I am covering for Dr. Escobar. This 70-year-old gentleman who was admitted after abdominoperineal resection. Dr. Reece is improving significantly. The patient has complaints of abdominal pain, especially moving. No chest pain or palpitations. No fever. PHYSICAL EXAMINATION: On exam, alert and oriented x3. Pulse is 81, blood pressure 126/61, respiration 17, temperature 98.1, pulse ox 95% on room air. HEENT: Conjunctivae normal. CARDIOVASCULAR: S1, S2 muffled. RESPIRATORY: Breath sounds diminished at the bases. No rhonchi, no crackles. ABDOMEN: Soft, nontender. NERVOUS SYSTEM: No focal deficits. LABS: WBC 5.8, hemoglobin is 8.8. Calcium is 8.5. Other labs are noted. ASSESSMENT: 1. Status post abdominoperineal resection for rectal cancer. 2. Anemia as expected postop. 3. History of renal transplantation. 4. Hyponatremia. 5. History of hyperlipidemia. 6. History of hypertension. 7. History of myocardial infarction. 8. History of gout. 9. History of cardiac catheterization. 10.History of motion sickness. 11.FULL CODE. RECOMMENDATIONS AND DISCUSSION: Recommend to continue current medications, continue symptomatic treatment. Repeat labs in the morning. Otherwise, closely monitor along with Dr. Reece and Nephrology. Further recommendations to follow. Dr. Escobar will follow tomorrow. MMODL / IJN: [id number] /
[2020-04-25] MEDS: HEPARIN SODIUM,PORCINE 5,000 UNIT/ML 1 ML VIAL SQ SCH ×3 (01:23→17:55)
[2020-04-25 06:38] LABS: Anisocytosis Moderate; HCT 30.7 % (39.0-53.0); HGB 9.6 gm/dL (13.0-17.5); Hypochromasia Marked; MCH 28.6 pg (25.0-35.0); MCHC 31.4 g/dL (31.0-37.0); Platelet Count 216 k/uL (150-450); Poikilocytosis Slight; RBC 3.37 m/uL (4.30-5.90); RDW 20.2 % (11.5-15.5); WBC 5.4 k/uL (3.8-10.6)
[2020-04-25 07:53] LABS: Eosinophils # (M) 0.05 k/uL (0-0.7); Monocytes # (M) 0.32 k/uL (0-1.0); Neutrophils # (M) 4.32 k/uL (1.3-7.7); Neutrophils % (M) 80 %; Nucleated Red Blood Cells 0 /100 WBC (0-0); Polychromasia Present; Total Cells Counted 100
--- NOTE | 2020-04-25 07:53 | P.PN ---
Subjective Progress Note Date: 04/25/20 Principal diagnosis: Recovering from rectal cancer Discontinue proximal known on a 70-year-old white male essentially admitted for rectal cancer with continent surgical removal. The patient is doing quite well and has recently moved into the chair. Objective - Vital Signs Vital signs: Vital Signs Temp 98.5 F 04/25/20 01:00 Pulse 78 04/25/20 01:00 Resp 16 04/25/20 04:16 BP 146/76 04/25/20 01:00 Pulse Ox 96 04/25/20 01:00 Intake & Output 04/24/20 04/25/20 04/25/20 18:59 06:59 18:59 Intake Total 200 Output Total 1415 1000 Balance -1215 -1000 Intake: Intake, IV Titration 200 Amount Sodium Chloride 0.9% 1, 200 000 ml @ 50 mls/hr IV . Q20H [facility] Rx#:[id number] Output: Drainage 15 Lower Posterior lower 5 perineal area Upper Posterior Buttock 10 Urine 1400 1000 Uretheral (Sheldon) 1400 Other: Voiding Method Indwelling Catheter Indwelling Catheter - Constitutional General appearance: Present: average body habitus - Neck Neck: Absent: lymphadenopathy - Respiratory Respiratory: bilateral: CTA - Cardiovascular Rhythm: regular Heart sounds: normal: S1, S2 Abnormal Heart Sounds: Absent: S3 Gallop - Gastrointestinal General gastrointestinal: Present: soft. Absent: tenderness - Integumentary Integumentary: Absent: cyanotic, jaundiced - Psychiatric Psychiatric: Present: A&O x's 3 - Labs CBC & Chem 7: 04/25/20 06:15 04/24/20 06:14 Labs: Abnormal Lab Results - Last 24 Hours (Table) 04/24/20 04/25/20 Range/Units 06:14 06:15 RBC 3.37 L (4.30-5.90) m/uL Hgb 9.6 L (13.0-17.5) gm/dL Hct 30.7 L (39.0-53.0) % RDW 20.2 H (11.5-15.5) % Calcium 8.5 L (8.7-10.3) mg/dL Assessment and Plan (1) History of rectal cancer Current Visit: Yes Status: Acute Code(s): Z85.048 - PRSNL HX OF MALIG NEOPLM OF RECTUM, RECTOSIG JUNCT, AND ANUS SNOMED Code(s): 944303284 (2) History of renal transplant Current Visit: Yes Status: Acute Code(s): Z94.0 - KIDNEY TRANSPLANT STATUS SNOMED Code(s): 413400521 Plan: DVT and GI prophylaxis per surgery. We'll go ahead and reconcile home medications once nothing by mouth is lifted. See orders otherwise. .
[2020-04-25] MEDS: cycloSPORINE 25 MG CAP PO SCH ×2 (08:57→21:46)
[2020-04-25] MEDS: ALVIMOPAN 12 MG CAPSULE PO SCH ×2 (08:58→19:56)
[2020-04-25] MEDS: amLODIPine 5 MG TAB PO SCH (08:58)
[2020-04-25] MEDS: ISOSORBIDE MONONITRATE ER 30 MG TAB.ER.24H PO SCH (08:58)
[2020-04-25] MEDS: MULTIVITAMINS, THERA 1 EACH TAB PO SCH (08:58)
[2020-04-25] MEDS: allopurinoL 100 MG TAB PO SCH ×2 (08:58→19:55)
[2020-04-25] MEDS: predniSONE 10 MG TAB PO SCH ×2 (08:58→19:56)
[2020-04-25] MEDS: METOPROLOL TARTRATE 50 MG TAB PO SCH ×2 (08:58→19:55)
[2020-04-25] MEDS: SERTRALINE 50 MG TAB PO SCH (08:58)
[2020-04-25] MEDS: hydroCHLOROthiazide 12.5 MG CAP PO SCH (08:58)
[2020-04-25] MEDS: PANTOPRAZOLE 40 MG TABLET PO SCH ×2 (08:58→19:57)
[2020-04-25] MEDS: HYDROmorphone 1 MG/ML 1 ML SYRINGE IVP PRN ×3 (09:01→17:59)
[2020-04-25] MEDS: FAMOTIDINE 20 MG/2 ML VIAL IV SCH ×2 (09:02→19:56)
[2020-04-25] MEDS: ASPIRIN 81 MG PO SCH (09:07)
[2020-04-25] MEDS: ONDANSETRON 4 MG/2 ML VIAL IVP PRN (10:29)
[2020-04-25 11:01] LABS: % Iron Saturation 6.22 (15.00-50.00); African American GFR (CKD) 100.6 (60.0-200.0); Anion Gap 9.3 mmol/L (4.00-12.00); BUN/Creat Ratio 14.44 Ratio (12.00-20.00); Calcium 8.7 mg/dL (8.7-10.3); Carbon Dioxide 27.7 mmol/L (21.6-31.8); Non-African American GFR(CKD) 86.8 (60.0-200.0); Potassium 3.7 mmol/L (3.5-5.5)
[2020-04-25] MEDS: LACTATED RINGERS 1,000 ML IV SCH (12:20)
--- NOTE | 2020-04-25 14:58 | P.PN ---
Subjective Progress Note Date: 04/25/20 Principal diagnosis: Rectal cancer Patient seems to be doing better. He was confused over the weekend and pulled his epidural out. Since that time he says his pain has been poorly controlled at times. Sheldon catheter remains in place. Both drains with relatively low serosanguineous drainage. Ostomy is now functioning. Incisional dressing just changed. White blood cell count normal. He is afebrile. Objective - Vital Signs Vital signs: Vital Signs Temp 98.2 F 04/25/20 07:00 Pulse 69 04/25/20 07:00 Resp 17 04/25/20 07:00 BP 146/74 04/25/20 07:00 Pulse Ox 96 04/25/20 07:00 Intake & Output 04/24/20 04/25/20 04/25/20 18:59 06:59 18:59 Intake Total 200 Output Total 1415 1000 1005 Balance -1215 -1000 -1005 Intake: Intake, IV Titration 200 Amount Sodium Chloride 0.9% 1, 200 000 ml @ 50 mls/hr IV . Q20H [facility] Rx#:[id number] Output: Drainage 15 55 Lower Posterior lower 5 5 perineal area Upper Posterior Buttock 10 50 Urine 1400 1000 900 Uretheral (Sheldon) 1400 Stool 50 Other: Voiding Method Indwelling Catheter Indwelling Catheter Indwelling Catheter - Exam Abdomen: Soft, nondistended, dressing clean and dry, ostomy functioning Perineal incision clean and dry both drains in place - Labs CBC & Chem 7: 04/25/20 06:15 04/25/20 06:15 Labs: Abnormal Lab Results - Last 24 Hours (Table) 04/25/20 04/25/20 Range/Units 06:15 06:15 RBC 3.37 L (4.30-5.90) m/uL Hgb 9.6 L (13.0-17.5) gm/dL Hct 30.7 L (39.0-53.0) % RDW 20.2 H (11.5-15.5) % Lymphocytes # (Manual) 0.70 L (1.0-4.8) k/uL Iron 15 L (65-175) ug/dL % Saturation 6.22 L (15.00-50.00) Assessment and Plan (1) History of rectal cancer Narrative/Plan: Patient doing better at this time. Will increase diet. Ambulate as tolerated. Remove one of the two pelvic drains. Add [place] for pain control. Current Visit: Yes Status: Acute Code(s): Z85.048 - PRSNL HX OF MALIG NEOPLM OF RECTUM, RECTOSIG JUNCT, AND ANUS SNOMED Code(s): 969197202
[2020-04-25] MEDS: HYDROcodone/APAP 7.5-325MG 1 EACH TAB PO PRN (19:54)
[2020-04-25] MEDS: ACETAMINOPHEN TAB 500 MG TAB PO SCH (19:56)
[2020-04-25] MEDS: MELATONIN 5 MG TABLET PO SCH (19:56)
[2020-04-26] MEDS: SODIUM CHLORIDE 0.9% 1,000 ML IV SCH ×2 (00:36→16:27)
[2020-04-26] MEDS: HYDROcodone/APAP 7.5-325MG 1 EACH TAB PO PRN ×2 (00:41→20:15)
[2020-04-26] MEDS: HEPARIN SODIUM,PORCINE 5,000 UNIT/ML 1 ML VIAL SQ SCH ×4 (00:42→23:26)
[2020-04-26] MEDS: PANTOPRAZOLE 40 MG TABLET PO SCH ×2 (07:11→16:29)
[2020-04-26] MEDS: LACTATED RINGERS 1,000 ML IV SCH (08:01)
[2020-04-26] MEDS: SERTRALINE 50 MG TAB PO SCH (08:38)
[2020-04-26] MEDS: ASPIRIN 81 MG PO SCH (08:39)
[2020-04-26] MEDS: hydroCHLOROthiazide 12.5 MG CAP PO SCH (08:39)
[2020-04-26] MEDS: ISOSORBIDE MONONITRATE ER 30 MG TAB.ER.24H PO SCH (08:40)
[2020-04-26] MEDS: allopurinoL 100 MG TAB PO SCH ×2 (08:40→20:14)
[2020-04-26] MEDS: MULTIVITAMINS, THERA 1 EACH TAB PO SCH (08:40)
[2020-04-26] MEDS: amLODIPine 5 MG TAB PO SCH (08:41)
--- NOTE | 2020-04-26 08:41 | P.PN ---
Subjective Principal diagnosis: Recovering from rectal cancer Discontinue proximal known on a 70-year-old white male essentially admitted for rectal cancer with continent surgical removal. The patient is doing quite well and has recently moved into the chair. The patient states she has difficulty in transferring due to the significant pain Objective - Vital Signs Vital signs: Vital Signs Temp 97.8 F 04/26/20 07:00 Pulse 62 04/26/20 07:00 Resp 20 04/26/20 07:00 BP 150/55 04/26/20 07:00 Pulse Ox 97 04/26/20 07:00 Intake & Output 04/25/20 04/26/20 04/26/20 18:59 06:59 18:59 Intake Total 400 100 Output Total 2109 2019 Balance -1709 Intake: Intake, IV Titration 400 Amount Sodium Chloride 0.9% 1, 400 000 ml @ 50 mls/hr IV . Q20H [facility] Rx#:[id number] Oral 100 Output: Drainage 60 20 Lower Posterior lower 5 perineal area Upper Posterior Buttock 55 20 Urine 1999 1999 Uretheral (Sheldon) 1000 Stool 50 Other: Voiding Method Indwelling Catheter Indwelling Catheter Indwelling Catheter - Constitutional General appearance: Present: average body habitus - EENT Eyes: Absent: abnormal pupil - Neck Neck: Absent: lymphadenopathy - Respiratory Respiratory: bilateral: CTA - Cardiovascular Rhythm: regular Heart sounds: normal: S1, S2 Abnormal Heart Sounds: Absent: S3 Gallop - Gastrointestinal General gastrointestinal: Present: soft. Absent: tenderness - Labs CBC & Chem 7: 04/25/20 06:15 04/25/20 06:15 Labs: Abnormal Lab Results - Last 24 Hours (Table) 04/25/20 Range/Units 06:15 Iron 15 L (65-175) ug/dL % Saturation 6.22 L (15.00-50.00) Assessment and Plan (1) History of rectal cancer Current Visit: Yes Status: Acute Code(s): Z85.048 - PRSNL HX OF MALIG NEOPLM OF RECTUM, RECTOSIG JUNCT, AND ANUS SNOMED Code(s): 081013711 (2) History of renal transplant Current Visit: Yes Status: Acute Code(s): Z94.0 - KIDNEY TRANSPLANT STATUS SNOMED Code(s): 225969267 Plan: DVT and GI prophylaxis per surgery. I suspect discharge planning for appropriate home health versus ECF. Check CBC and CMP in a.m. We'll continue to follow with general surgery. The patient's pain is well- controlled this time.
[2020-04-26] MEDS: cycloSPORINE 25 MG CAP PO SCH ×2 (08:44→21:15)
[2020-04-26] MEDS: predniSONE 10 MG TAB PO SCH ×2 (08:44→20:14)
[2020-04-26] MEDS: METOPROLOL TARTRATE 50 MG TAB PO SCH ×2 (08:44→20:15)
[2020-04-26] MEDS: FAMOTIDINE 20 MG/2 ML VIAL IV SCH ×2 (08:46→20:32)
[2020-04-26] MEDS: ALVIMOPAN 12 MG CAPSULE PO SCH ×2 (09:56→20:32)
--- NOTE | 2020-04-26 15:04 | P.PN ---
Subjective Progress Note Date: 04/26/20 Principal diagnosis: Rectal cancer Patient seems to be doing somewhat better. Still complaining of discomfort when trying to sit up in bed. Pain is only in the abdomen. No perineal discomfort. One of the 2 drains removed yesterday. Second drain still with 20-30 mL per day. Sheldon catheter remains in place. Good urine output. Labs noted. Tolerating diet. Good ostomy function. Objective - Vital Signs Vital signs: Vital Signs Temp 97.8 F 04/26/20 07:00 Pulse 62 04/26/20 07:00 Resp 20 04/26/20 07:00 BP 150/55 04/26/20 07:00 Pulse Ox 97 04/26/20 07:00 Intake & Output 04/25/20 04/26/20 04/26/20 18:59 06:59 18:59 Intake Total 400 100 240 Output Total 21099 Balance -2274 -4925 -9746 Intake: Intake, IV Titration 400 Amount Sodium Chloride 0.9% 1, 400 000 ml @ 50 mls/hr IV . Q20H [facility] Rx#:[id number] Oral 100 240 Output: Drainage 60 20 Lower Posterior lower 5 perineal area Upper Posterior Buttock 55 20 Urine 1999 1999 2989 Uretheral (Sheldon) 1000 1622 Stool 50 Other: Voiding Method Indwelling Catheter Indwelling Catheter Indwelling Catheter - Exam Abdomen: Soft, nondistended, dressing clean and dry, ostomy functioning, mild tenderness Perineal incision clean and dry, drain in place - Labs CBC & Chem 7: 04/25/20 06:15 04/25/20 06:15 Assessment and Plan (1) History of rectal cancer Narrative/Plan: Patient overall doing well. Continue diet. Will remove Sheldon catheter today. Monitor drain output from second drain site. Possibly remove second drain prior to discharge. Continue increasing activity with physical therapy. Possible discharge in 24-48 hours with home care Current Visit: Yes Status: Acute Code(s): Z85.048 - PRSNL HX OF MALIG NEOPLM OF RECTUM, RECTOSIG JUNCT, AND ANUS SNOMED Code(s): 199684355
[2020-04-26] MEDS: ACETAMINOPHEN TAB 500 MG TAB PO SCH (20:14)
[2020-04-26] MEDS: MELATONIN 5 MG TABLET PO SCH (20:15)
[2020-04-26] MEDS: ONDANSETRON 4 MG/2 ML VIAL IVP PRN (23:11)
[2020-04-27] MEDS: LACTATED RINGERS 1,000 ML IV SCH (06:09)
[2020-04-27 07:15] LABS: Anisocytosis Slight; HCT 30.7 % (39.0-53.0); HGB 9.7 gm/dL (13.0-17.5); Hypochromasia Moderate; MCH 28.1 pg (25.0-35.0); MCHC 31.7 g/dL (31.0-37.0); MCV 88.5 fL (80.0-100.0); Mean Platelet Volume 7.6; Platelet Count 208 k/uL (150-450); Poikilocytosis Slight; RBC 3.47 m/uL (4.30-5.90); RDW 19.5 % (11.5-15.5); WBC 5.8 k/uL (3.8-10.6)
[2020-04-27] MEDS: PANTOPRAZOLE 40 MG TABLET PO SCH ×2 (07:15→17:30)
[2020-04-27] MEDS: HEPARIN SODIUM,PORCINE 5,000 UNIT/ML 1 ML VIAL SQ SCH ×2 (07:15→17:30)
[2020-04-27] MEDS: METOCLOPRAMIDE 5 MG/ML 2 ML VIAL IVP PRN (09:06)
[2020-04-27] MEDS: ISOSORBIDE MONONITRATE ER 30 MG TAB.ER.24H PO SCH (09:12)
[2020-04-27] MEDS: amLODIPine 5 MG TAB PO SCH (09:13)
[2020-04-27] MEDS: SERTRALINE 50 MG TAB PO SCH (09:13)
[2020-04-27] MEDS: cycloSPORINE 25 MG CAP PO SCH ×2 (09:13→20:07)
[2020-04-27] MEDS: MULTIVITAMINS, THERA 1 EACH TAB PO SCH (09:13)
[2020-04-27] MEDS: METOPROLOL TARTRATE 50 MG TAB PO SCH ×2 (09:13→20:07)
[2020-04-27] MEDS: ASPIRIN 81 MG PO SCH (09:13)
[2020-04-27] MEDS: allopurinoL 100 MG TAB PO SCH ×2 (09:13→20:08)
[2020-04-27] MEDS: hydroCHLOROthiazide 12.5 MG CAP PO SCH (09:13)
[2020-04-27] MEDS: FAMOTIDINE 20 MG/2 ML VIAL IV SCH (09:14)
[2020-04-27] MEDS: predniSONE 10 MG TAB PO SCH ×2 (09:14→20:07)
--- NOTE | 2020-04-27 10:22 | P.PN ---
Subjective Principal diagnosis: Recovering from rectal cancer Discontinue proximal known on a 70-year-old white male essentially admitted for rectal cancer with continent surgical removal. The patient is doing quite well and has recently moved into the chair. The patient states she has difficulty in transferring due to the significant pain.The patient states mild dizziness. I have told the patient that he needs to transfer out of the bed more slowly. Otherwise, he we anticipate discharge later today. Objective - Vital Signs Vital signs: Vital Signs Temp 98.2 F 04/27/20 07:41 Pulse 60 04/27/20 01:00 Resp 14 04/27/20 07:41 BP 120/71 04/27/20 07:41 Pulse Ox 92 L 04/27/20 01:00 Intake & Output 04/26/20 04/27/20 04/27/20 18:59 06:59 18:59 Intake Total 240 100 Output Total 3294 Balance -3054 100 Intake: Oral 240 100 Output: Drainage 5 Upper Posterior Buttock 5 Urine 3289 Uretheral (Sheldon) 1622 Other: Voiding Method Indwelling Catheter Toilet Toilet Urinal Urinal # Voids 1 - Constitutional General appearance: Present: average body habitus - EENT Eyes: Absent: abnormal pupil - Neck Neck: Absent: lymphadenopathy - Respiratory Respiratory: bilateral: CTA - Cardiovascular Rhythm: regular Heart sounds: normal: S1, S2 Abnormal Heart Sounds: Absent: S3 Gallop - Gastrointestinal General gastrointestinal: Present: soft. Absent: tenderness - Integumentary Integumentary: Absent: rash - Neurologic Neurologic: Present: CNII-XII intact - Labs CBC & Chem 7: 04/27/20 05:47 04/25/20 06:15 Labs: Abnormal Lab Results - Last 24 Hours (Table) 04/27/20 Range/Units 05:47 RBC 3.47 L (4.30-5.90) m/uL Hgb 9.7 L (13.0-17.5) gm/dL Hct 30.7 L (39.0-53.0) % RDW 19.5 H (11.5-15.5) % Assessment and Plan (1) History of rectal cancer Current Visit: Yes Status: Acute Code(s): Z85.048 - PRSNL HX OF MALIG NEOPLM OF RECTUM, RECTOSIG JUNCT, AND ANUS SNOMED Code(s): 702750239 (2) History of renal transplant Current Visit: Yes Status: Acute Code(s): Z94.0 - KIDNEY TRANSPLANT STATUS SNOMED Code(s): 503226459 Plan: Anticipate discharged later today. We'll continue to follow with general surgery. The patient's pain is well- controlled this time. Time with Patient: Less than 30
[2020-04-27 11:59] LABS: African American GFR (CKD) 71.1 (60.0-200.0); Albumin 3.7 g/dL (3.80-4.90); Albumin/Globulin Ratio 1.61 (1.60-3.17); Anion Gap 13.1 mmol/L (4.00-12.00); BUN/Creat Ratio 14.17 Ratio (12.00-20.00); Calcium 9.4 mg/dL (8.7-10.3); Carbon Dioxide 22.9 mmol/L (21.6-31.8); Globulin 2.3 g/dL (1.6-3.3); Non-African American GFR(CKD) 61.3 (60.0-200.0); Potassium 4.1 mmol/L (3.5-5.5); Total Bilirubin 0.8 mg/dL (0.3-1.2)
[2020-04-27] MEDS: ONDANSETRON 4 MG/2 ML VIAL IVP PRN (12:07)
--- NOTE | 2020-04-27 14:22 | P.PN ---
Subjective Progress Note Date: 04/27/20 CHIEF COMPLAINT: Rectal cancer HISTORY OF PRESENT ILLNESS: Patient is status post abdominal perineal resection on 04/21/2020. Patient seen and examined with Dr. Brock. Patient has been having some nausea. No vomiting. He's tolerating diet. MORGAN drain had 25 mL output for 24 hours. Patient urinating without difficulty. Sheldon catheter removed yesterday. Ostomy is functioning. Afebrile WBC 5.8 PHYSICAL EXAM: VITAL SIGNS: Reviewed. GENERAL: Well-developed in no acute distress. HEENT: No sclera icterus. Extraocular movements grossly intact. Moist buccal mucosa. Head is atraumatic, normocephalic. ABDOMEN: Soft. Nondistended. Dressing clean dry and intact. Ostomy functioning. Her new incision clean and dry. Gauze reapplied. MORGAN drain in place with serosanguineous fluid NEUROLOGIC: Alert and oriented. Cranial nerves II through XII grossly intact. ASSESSMENT: 1. Rectal cancer status post abdominal perineal resection PLAN: -Continue diet -Continue to monitor drain output. We'll assess possible removal of remaining drain tomorrow -Continue to work with physical therapy. -Possible discharge home tomorrow Physician Hand Shoe Cutter note has been reviewed by physician. Signing provider agrees with the documented findings, assessment, and plan of care. Objective - Vital Signs Vital signs: Vital Signs Temp 98.2 F 04/27/20 07:41 Pulse 60 04/27/20 01:00 Resp 14 04/27/20 07:41 BP 120/71 04/27/20 07:41 Pulse Ox 92 L 04/27/20 01:00 Intake & Output 04/26/20 04/27/20 04/27/20 18:59 06:59 18:59 Intake Total 240 100 Output Total 3294 Balance -3054 100 Intake: Oral 240 100 Output: Drainage 5 Upper Posterior Buttock 5 Urine 3289 Uretheral (Sheldon) 1622 Other: Voiding Method Indwelling Catheter Toilet Toilet Urinal Urinal # Voids 1 - Labs CBC & Chem 7: 04/27/20 05:47 04/27/20 05:47 Labs: Abnormal Lab Results - Last 24 Hours (Table) 04/27/20 04/27/20 Range/Units 05:47 05:47 RBC 3.47 L (4.30-5.90) m/uL Hgb 9.7 L (13.0-17.5) gm/dL Hct 30.7 L (39.0-53.0) % RDW 19.5 H (11.5-15.5) % Anion Gap 13.10 H (4.00-12.00) mmol/L AST 79 H (14-35) U/L ALT 89 H (10-49) U/L Alkaline Phosphatase 138 H (41-126) U/L Total Protein 6.0 L (6.2-8.2) g/dL Albumin 3.70 L (3.80-4.90) g/dL
[2020-04-27] MEDS: SODIUM CHLORIDE 0.9% 1,000 ML IV SCH (17:22)
[2020-04-27] MEDS: HYDROcodone/APAP 7.5-325MG 1 EACH TAB PO PRN (20:04)
[2020-04-27] MEDS: FAMOTIDINE 20 MG TAB PO SCH (20:07)
[2020-04-27] MEDS: MELATONIN 5 MG TABLET PO SCH (20:07)
[2020-04-27] MEDS: ACETAMINOPHEN TAB 500 MG TAB PO SCH (20:08)
[2020-04-28] MEDS: HYDROcodone/APAP 7.5-325MG 1 EACH TAB PO PRN ×2 (00:10→12:31)
[2020-04-28] MEDS: HEPARIN SODIUM,PORCINE 5,000 UNIT/ML 1 ML VIAL SQ SCH ×2 (00:12→09:41)
[2020-04-28 02:56] VITALS: PULSE 66
[2020-04-28 06:49] LABS: Anisocytosis Slight; Basophils % (A) 0 %; Eosinophils # (A) 0.1 k/uL (0-0.7); Eosinophils % (A) 1 %; HCT 33.1 % (39.0-53.0); HGB 10.3 gm/dL (13.0-17.5); Hypochromasia Moderate; Lymphocytes # (A) 1.4 k/uL (1.0-4.8); Lymphocytes % (A) 23 %; MCH 27.3 pg (25.0-35.0); MCHC 31.1 g/dL (31.0-37.0); Mean Platelet Volume 7.6; Monocytes # (A) 0.2 k/uL (0-1.0); Monocytes % (A) 4 %; Neutrophils # (A) 4.3 k/uL (1.3-7.7); Neutrophils % (A) 71 %; Platelet Count 229 k/uL (150-450); Poikilocytosis Slight; RBC 3.77 m/uL (4.30-5.90); RDW 19.4 % (11.5-15.5); WBC 6.1 k/uL (3.8-10.6)
[2020-04-28] MEDS: LACTATED RINGERS 1,000 ML IV SCH (07:51)
[2020-04-28 08:22] VITALS: RESP 16
--- NOTE | 2020-04-28 08:57 | P.PN ---
Subjective Principal diagnosis: Recovering from rectal cancer Discontinue proximal known on a 70-year-old white male essentially admitted for rectal cancer with continent surgical removal. The patient is doing quite well and has recently moved into the chair. The patient states she has difficulty in transferring due to the significant pain.The patient states mild dizziness. I have told the patient that he needs to transfer out of the bed more slowly. Otherwise, he we anticipate discharge later today. Objective - Vital Signs Vital signs: Vital Signs Temp 98.0 F 04/28/20 08:27 Pulse 66 04/28/20 02:55 Resp 16 04/28/20 08:27 BP 146/86 04/28/20 08:27 Pulse Ox 98 04/28/20 08:27 Intake & Output 04/27/20 04/28/20 04/28/20 18:59 06:59 18:59 Output Total 300 10 Balance -300 -10 Output: Drainage 10 Upper Posterior Buttock 10 Urine 300 Other: Voiding Method Toilet Toilet Urinal Urinal # Voids 0 1 - Constitutional General appearance: Present: average body habitus - EENT Eyes: Absent: abnormal pupil - Respiratory Respiratory: bilateral: CTA - Cardiovascular Rhythm: regular Heart sounds: normal: S1, S2 Abnormal Heart Sounds: Absent: S3 Gallop - Gastrointestinal General gastrointestinal: Present: soft. Absent: tenderness - Integumentary Integumentary: Absent: cellulitis - Musculoskeletal Musculoskeletal: Present: generalized weakness - Psychiatric Psychiatric: Present: A&O x's 3 - Labs CBC & Chem 7: 04/28/20 06:15 04/27/20 05:47 Labs: Abnormal Lab Results - Last 24 Hours (Table) 04/27/20 04/28/20 Range/Units 05:47 06:15 RBC 3.77 L (4.30-5.90) m/uL Hgb 10.3 L (13.0-17.5) gm/dL Hct 33.1 L (39.0-53.0) % RDW 19.4 H (11.5-15.5) % Anion Gap 13.10 H (4.00-12.00) mmol/L AST 79 H (14-35) U/L ALT 89 H (10-49) U/L Alkaline Phosphatase 138 H (41-126) U/L Total Protein 6.0 L (6.2-8.2) g/dL Albumin 3.70 L (3.80-4.90) g/dL Assessment and Plan (1) History of rectal cancer Current Visit: Yes Status: Acute Code(s): Z85.048 - PRSNL HX OF MALIG NEOPLM OF RECTUM, RECTOSIG JUNCT, AND ANUS SNOMED Code(s): 161176879 (2) History of renal transplant Current Visit: Yes Status: Acute Code(s): Z94.0 - KIDNEY TRANSPLANT STATUS SNOMED Code(s): 076725286 Plan: Hopefully patient will be discharged later today.. We'll continue to follow with general surgery. The patient's pain is well- controlled this time.
[2020-04-28] MEDS: predniSONE 10 MG TAB PO SCH (09:37)
[2020-04-28] MEDS: allopurinoL 100 MG TAB PO SCH (09:38)
[2020-04-28] MEDS: cycloSPORINE 25 MG CAP PO SCH (09:39)
[2020-04-28] MEDS: ISOSORBIDE MONONITRATE ER 30 MG TAB.ER.24H PO SCH (09:40)
[2020-04-28] MEDS: MULTIVITAMINS, THERA 1 EACH TAB PO SCH (09:40)
[2020-04-28] MEDS: hydroCHLOROthiazide 12.5 MG CAP PO SCH (09:40)
[2020-04-28] MEDS: ASPIRIN 81 MG PO SCH (09:40)
[2020-04-28] MEDS: FAMOTIDINE 20 MG TAB PO SCH (09:40)
[2020-04-28] MEDS: METOPROLOL TARTRATE 50 MG TAB PO SCH (09:41)
[2020-04-28] MEDS: amLODIPine 5 MG TAB PO SCH (09:41)
[2020-04-28] MEDS: PANTOPRAZOLE 40 MG TABLET PO SCH (09:51)
[2020-04-28] MEDS: SERTRALINE 50 MG TAB PO SCH (10:12)
[2020-04-28] MEDS: SODIUM CHLORIDE 0.9% 1,000 ML IV SCH (10:13)
[2020-04-28 10:19] LABS: African American GFR (CKD) 64.5 (60.0-200.0); Albumin 3.7 g/dL (3.80-4.90); Albumin/Globulin Ratio 1.61 (1.60-3.17); Anion Gap 9.2 mmol/L (4.00-12.00); BUN/Creat Ratio 17.69 Ratio (12.00-20.00); Calcium 9.3 mg/dL (8.7-10.3); Carbon Dioxide 25.8 mmol/L (21.6-31.8); Globulin 2.3 g/dL (1.6-3.3); Non-African American GFR(CKD) 55.7 (60.0-200.0); Potassium 4.3 mmol/L (3.5-5.5); Total Bilirubin 0.8 mg/dL (0.3-1.2)
[2020-04-28 13:10] VITALS: BP 130/69; TEMP 99.2
[2020-04-28] MEDS: ONDANSETRON 4 MG/2 ML VIAL IVP PRN (14:04)
--- NOTE | 2020-04-28 14:23 | P.DS ---
Providers Date of admission: 04/22/20 09:01 Expected date of discharge: 04/28/20 Attending physician: Ravi Reece Consults: 04/21/20 17:04 Consult Physician Routine Consulting Provider: Jose Antonio Escobar Consult Reason/Comments: medical management Do you want consulting provider notified?: Yes Consult Physician Routine Consulting Provider: Nahomy Lyons Consult Reason/Comments: history of renal transplant Do you want consulting provider notified?: Yes Primary care physician: Jose Antonio Escobar Hospital Course: Discharge diagnosis 1. Rectal cancer status post abdominal perineal resection 2. Elevated LFTs. We'll have patient check CMP in 1 week. Hospital course This is a 70-year-old male with known rectal cancer. He has finished his neoadjuvant chemoradiation treatment. He has history of esophageal cancer as well as a renal transplant. Patient is now status post abdominal perineal resection. His pain is controlled. He denies any nausea or vomiting. He is tolerating diet. He is up and ambulating. His ostomy is functioning. MORGAN drain was removed prior to discharge. He is afebrile. He is stable for discharge. Please refer to chart for any further details. Physician Welfare Case Worker note has been reviewed by physician. Signing provider agrees with the documented findings, assessment, and plan of care. Patient Condition at Discharge: Stable Plan - Discharge Summary Discharge Rx Participant: Yes New Discharge Prescriptions: New Docusate [Colace] 100 mg PO BID #30 capsule HYDROcodone/APAP 7.5-325MG [[place] 7.5-325] 1 tab PO Q4H PRN 3 Days #18 tab PRN Reason: Pain Continue Sertraline [Zoloft] 50 mg PO DAILY predniSONE 5 mg PO BID amLODIPine [Norvasc] 5 mg PO DAILY Metoprolol Tartrate [Lopressor] 50 mg PO BID cycloSPORINE [SandIMMUNE] 75 mg PO BID Aspirin [Adult Low Dose Aspirin EC] 81 mg PO DAILY Pantoprazole Sodium [Protonix] 40 mg PO BID Isosorbide Mononitrate ER [Imdur] 30 mg PO DAILY Allopurinol [Zyloprim] 200 mg PO BID Hydrochlorothiazide [hydroCHLOROthiazide] 12.5 mg PO QAM Multivitamins, Thera [Multivitamin (formulary)] 1 tab PO DAILY Acetaminophen [Tylenol] 500 mg PO HS Melatonin 5 mg PO HS Discharge Medication List Acetaminophen [Tylenol] 500 mg PO HS 04/20/20 [History] Allopurinol [Zyloprim] 200 mg PO BID 04/20/20 [History] Aspirin [Adult Low Dose Aspirin EC] 81 mg PO DAILY 04/20/20 [History] Hydrochlorothiazide [hydroCHLOROthiazide] 12.5 mg PO QAM 04/20/20 [History] Isosorbide Mononitrate ER [Imdur] 30 mg PO DAILY 04/20/20 [History] Melatonin 5 mg PO HS 04/20/20 [History] Metoprolol Tartrate [Lopressor] 50 mg PO BID 04/20/20 [History] Multivitamins, Thera [Multivitamin (formulary)] 1 tab PO DAILY 04/20/20 [History] Pantoprazole Sodium [Protonix] 40 mg PO BID 04/20/20 [History] Sertraline [Zoloft] 50 mg PO DAILY 04/20/20 [History] amLODIPine [Norvasc] 5 mg PO DAILY 04/20/20 [History] cycloSPORINE [SandIMMUNE] 75 mg PO BID 04/20/20 [History] predniSONE 5 mg PO BID 04/20/20 [History] Docusate [Colace] 100 mg PO BID #30 capsule 04/28/20 [Rx] HYDROcodone/APAP 7.5-325MG [[place] 7.5-325] 1 tab PO Q4H PRN 3 Days #18 tab 04/28/20 [Rx] Follow up Appointment(s)/Referral(s): [facility], [NON-STAFF] - Patient Instructions/Handouts: Colostomy Care (GEN), Colorectal Cancer (GEN) Activity/Diet/Wound Care/Special Instructions: Colostomy Care Instructions: Pouching system changed: 04.27.2020 [facility] to supply the following on discharge for transition to home: Convatec flanges moldable #[id number] ([facility]) Convatec pouches with filter #[id number] (three from the hospital) Osotmy powder No sting prep pads ([facility] ) Mr Adams is to empty the pouching system when the pouch is 1/3 to 1/2 full while sitting on the toilet or facing the toilet Mr Adams is to change the pouching system every 3-5 days or as otherwise directed by the surgeon or sign poster Mr Adams will be receiving additional sample supplies from [facility] in 5 - 6 days after discharge from the hospital No driving while taking [place] No lifting over 10 pounds You may shower. No soaking or tub baths for 2 weeks Very light activity until you are reevaluated at your follow up appointment with your surgeon Diet low fiber Discharge Disposition: HOME SELF-CARE
== END 2020-04-28 15:18 | disposition home or self-care (01) | DRG 330 ==
LOC: OR 09:26 → 4SSUR 17:35 → OR 04-22 09:01 → 4SSUR 04-22 09:01
PROVIDERS: ADMIT Surgery; ATTEND Surgery
PROC: 0DTP0ZZ Resection of Rectum, Open Approach (ICD-10-PCS; principal; 2020-04-21 11:15)
PROC: 0DBN0ZZ Excision of Sigmoid Colon, Open Approach (ICD-10-PCS; principal; 2020-04-21 11:15)
PROC: 0D1N0Z4 Bypass Sigmoid Colon to Cutaneous, Open Approach (ICD-10-PCS; principal; 2020-04-21 11:15)
PROC: 0DBQ0ZZ Excision of Anus, Open Approach (ICD-10-PCS; principal; 2020-04-21 11:15)
DX: C20 Malignant neoplasm of rectum (principal); E87.1 Hypo-osmolality and hyponatremia; Z94.0 Kidney transplant status; D50.0 Iron deficiency anemia secondary to blood loss (chronic); E78.5 Hyperlipidemia, unspecified; I12.9 Hypertensive chronic kidney disease with stage 1 through stage 4 chronic kidney disease, or unspecified chronic kidney disease; I25.2 Old myocardial infarction; N18.2 Chronic kidney disease, stage 2 (mild); Z79.52 Long term (current) use of systemic steroids; Z79.82 Long term (current) use of aspirin; Z79.899 Other long term (current) drug therapy; Z85.01 Personal history of malignant neoplasm of esophagus; Z92.21 Personal history of antineoplastic chemotherapy; Z92.3 Personal history of irradiation; M10.9 Gout, unspecified; Z98.42 Cataract extraction status, left eye; Z98.41 Cataract extraction status, right eye; Z96.1 Presence of intraocular lens
CPT/HCPCS: 80048; 80053; 83540; 83550; 83735; 85025; 85027; 86850; 86900; 86901; 88307; 88309

== ENCOUNTER 2020-05-06 05:29 | Inpatient (IN) | payer MEDICARE ==
[2020-05-06] MEDS ORDERED: SODIUM CHLORIDE 0.9% 1,000 ML IV STA (05:32)
[2020-05-06] MEDS ORDERED: MORPHINE SULFATE 4 MG/ML SYRINGE IV STA (05:32)
--- NOTE | 2020-05-06 05:40 | ED ---
Weakness HPI <Rafa Ashby - Last Filed: 05/06/20 08:04> - General Source: RN notes reviewed, old records reviewed Limitations: no limitations - History of Present Illness MD Complaint: generalized weakness, lack of energy Location: generalized Severity: moderate Severity scale (1-10): 5 Consistency: constant Improves with: none Worsens with: none Context: recent illness, recent surgery Associated Symptoms: chest pain, confusion, fever/chills, nausea/vomiting, myalgias, shortness of breath <Alexander Hayden - Last Filed: 05/07/20 01:38> - General Stated complaint: Weakness Time Seen by Provider: 05/06/20 05:30 - History of Present Illness Initial comments: This is a 70-year-old male for not feeling well, weakness, pain medication not working increased abdominal pain with history of abdominal surgery history of rectal cancer colon cancer, surgery this week. Patient also developed fever. No real shortness of breath no cough denies any rashes or dysuria, no nausea vomiting or diarrhea. Patient does have recent inpatient hospital stay (Alexander Hayden) - Related Data Home Medications Medication Instructions Recorded Confirmed Acetaminophen [Tylenol] 500 mg PO HS 04/20/20 05/06/20 Allopurinol [Zyloprim] 200 mg PO BID 04/20/20 05/06/20 Aspirin [Adult Low Dose Aspirin EC] 81 mg PO DAILY 04/20/20 05/06/20 Hydrochlorothiazide 12.5 mg PO DAILY 04/20/20 05/06/20 [hydroCHLOROthiazide] Isosorbide Mononitrate ER [Imdur] 30 mg PO DAILY 04/20/20 05/06/20 Melatonin 5 mg PO HS 04/20/20 05/06/20 Metoprolol Tartrate [Lopressor] 50 mg PO BID 04/20/20 05/06/20 Multivitamins, Thera [Multivitamin 1 tab PO DAILY 04/20/20 05/06/20 (formulary)] Pantoprazole Sodium [Protonix] 40 mg PO DAILY 04/20/20 05/06/20 Sertraline [Zoloft] 50 mg PO DAILY 04/20/20 05/06/20 amLODIPine [Norvasc] 5 mg PO DAILY 04/20/20 05/06/20 cycloSPORINE [SandIMMUNE] 75 mg PO BID 04/20/20 05/06/20 predniSONE 5 mg PO BID 04/20/20 05/06/20 Atorvastatin Calcium [Lipitor] 20 mg PO HS 05/06/20 05/06/20 HYDROcodone/APAP 10-325MG [Tamiment 1 tab PO Q4H PRN 05/06/20 05/06/20 10-325] Previous Rx's Medication Instructions Recorded Docusate [Colace] 100 mg PO BID #30 capsule 04/28/20 Allergies Allergy/AdvReac Type Severity Reaction Status Date / Time No Known Allergies Allergy Verified 05/06/20 07:20 Review of Systems ROS Other: All systems not noted in ROS Statement are negative. <Rafa Ashby - Last Filed: 05/06/20 08:04> ROS Other: All systems not noted in ROS Statement are negative. <Alexander Hayden - Last Filed: 05/07/20 01:38> ROS Statement: Those systems with pertinent positive or pertinent negative responses have been documented in the HPI. Past Medical History Past Medical History: Cancer, Hyperlipidemia, Hypertension, Myocardial Infarction (PA), Renal Disease Additional Past Medical History / Comment(s): kidney transplant, heart problem, radiation and chemo-last 03/17/20 for colorectal cancer/esophageal cancer, gout, Last Myocardial Infarction Date:: unknown History of Any Multi-Drug Resistant Organisms: None Reported Past Surgical History: Heart Catheterization Additional Past Surgical History / Comment(s): kidney transplant 2008, dialysis fistual x 3/later removed, nicky cataract with implants, colonoscopies, peritoneal dialysis catheter/later removed Past Anesthesia/Blood Transfusion Reactions: Motion Sickness Past Psychological History: No Psychological Hx Reported Smoking Status: Never smoker Past Alcohol Use History: None Reported Additional Past Alcohol Use History / Comment(s): quit smoking cigars 25 yrs ago Past Drug Use History: None Reported - Past Family History Sister(s) Family Medical History: Cancer Father Family Medical History: No Reported History Additional Family Medical History / Comment(s): Father was healthy Mother Family Medical History: No Reported History Additional Family Medical History / Comment(s): Mother was healthy <Alexander Hayden - Last Filed: 05/07/20 01:38> General Exam General appearance: alert, in no apparent distress Head exam: Present: atraumatic, normocephalic, normal inspection Eye exam: Present: normal appearance, PERRL, EOMI. Absent: scleral icterus, conjunctival injection, periorbital swelling ENT exam: Present: normal exam, mucous membranes moist Neck exam: Present: normal inspection. Absent: tenderness, meningismus, lymphadenopathy Respiratory exam: Present: normal lung sounds bilaterally. Absent: respiratory distress, wheezes, rales, rhonchi, stridor Cardiovascular Exam: Present: regular rate, normal rhythm, normal heart sounds. Absent: systolic murmur, diastolic murmur, rubs, gallop, clicks GI/Abdominal exam: Present: soft, normal bowel sounds. Absent: distended, tenderness, guarding, rebound, rigid Extremities exam: Present: normal inspection, full ROM, normal capillary refill. Absent: tenderness, pedal edema, joint swelling, calf tenderness Back exam: Present: normal inspection Neurological exam: Present: alert, oriented X3, CN II-XII intact Psychiatric exam: Present: normal affect, normal mood Skin exam: Present: warm, dry, intact, normal color. Absent: rash <Alexander Hayden - Last Filed: 05/07/20 01:38> Course <Alexander Hayden - Last Filed: 05/07/20 01:38> Vital Signs 05/06/20 05/06/20 05/06/20 05:45 07:54 08:56 Temperature 100.9 F H 99.4 F 98.2 F Pulse Rate 84 96 92 Respiratory 18 18 18 Rate Blood Pressure 137/62 119/58 121/64 O2 Sat by Pulse 98 96 96 Oximetry 05/06/20 09:13 Temperature 98.8 F Pulse Rate Respiratory Rate Blood Pressure O2 Sat by Pulse Oximetry - Reevaluation(s) Reevaluation #1: 05/06/20 06:23 Medical records reviewed (Alexander Hayden) EKG Findings - EKG Comments: EKG Findings:: EKG shows sinus 89 IA 178 QRS 80 QTc 423 <Alexander Hayden - Last Filed: 05/07/20 01:38> Medical Decision Making - Lab Data Result diagrams: 05/06/20 05:51 05/06/20 05:51 - Radiology Data Radiology results: report reviewed (Computed tomography scan abdomen pelvis does show possible seroma and some likely postoperative air, nothing acute as discussed with radiologist. There is liver metastases.) <Raaf Ashby - Last Filed: 05/06/20 08:04> - Lab Data Result diagrams: 05/06/20 05:51 05/06/20 05:51 <Alexander Hayden - Last Filed: 05/07/20 01:38> - Medical Decision Making Dr. Alberto paged to update. (Rafa Ashby) - Lab Data Lab Results 05/06/20 05/06/20 05/06/20 Range/Units 05:51 05:51 05:51 WBC 12.3 H (3.8-10.6) k/uL RBC 3.45 L (4.30-5.90) m/uL Hgb 9.4 L (13.0-17.5) gm/dL Hct 29.1 L (39.0-53.0) % MCV 84.2 (80.0-100.0) fL MCH 27.2 (25.0-35.0) pg MCHC 32.3 (31.0-37.0) g/dL RDW 19.7 H (11.5-15.5) % Plt Count 295 (150-450) k/uL MPV 8.3 Neutrophils % 88 % Lymphocytes % 7 % Monocytes % 4 % Eosinophils % 0 % Basophils % 0 % Neutrophils # 10.8 H (1.3-7.7) k/uL Lymphocytes # 0.8 L (1.0-4.8) k/uL Monocytes # 0.5 (0-1.0) k/uL Eosinophils # 0.0 (0-0.7) k/uL Basophils # 0.0 (0-0.2) k/uL Hypochromasia Slight Poikilocytosis Slight Anisocytosis Slight Microcytosis Slight PT 10.3 (9.0-12.0) sec INR 1.0 (<1.2) APTT 27.4 (22.0-30.0) sec Sodium (137-145) mmol/L Potassium (3.5-5.1) mmol/L Chloride (98-107) mmol/L Carbon Dioxide (22-30) mmol/L Anion Gap mmol/L BUN (9-20) mg/dL Creatinine (0.66-1.25) mg/dL Est GFR (CKD-EPI)AfAm (>60 ml/min/1.73 sqM) Est GFR (CKD-EPI)NonAf (>60 ml/min/1.73 sqM) Glucose (74-99) mg/dL Plasma Lactic Acid Amando (0.7-2.0) mmol/L Calcium (8.4-10.2) mg/dL Phosphorus (2.5-4.5) mg/dL Magnesium (1.6-2.3) mg/dL Ferritin (22.0-322.0) ng/mL Total Bilirubin (0.2-1.3) mg/dL AST (17-59) U/L ALT (4-49) U/L Alkaline Phosphatase (38-126) U/L Lactate Dehydrogenase (313-618) U/L Creatine Kinase (55-170) U/L Troponin I (0.000-0.034) ng/mL C-Reactive Protein (<10.0) mg/L NT-Pro-B Natriuret Pep pg/mL Total Protein (6.3-8.2) g/dL Albumin (3.5-5.0) g/dL Procalcitonin (0.02-0.09) ng/mL Urine Color Yellow Urine Appearance Clear (Clear) Urine pH 6.0 (5.0-8.0) Ur Specific [place] 1.016 (1.001-1.035) Urine Protein Trace H (Negative) Urine Glucose (UA) Negative (Negative) Urine Ketones Negative (Negative) Urine Blood Negative (Negative) Urine Nitrite Negative (Negative) Urine Bilirubin Negative (Negative) Urine Urobilinogen 2.0 (<2.0) mg/dL Ur Leukocyte Esterase Negative (Negative) Influenza Type A RNA (Not Detectd) Influenza Type B (PCR) (Not Detectd) 05/06/20 05/06/20 05/06/20 Range/Units 05:51 05:51 05:51 WBC (3.8-10.6) k/uL RBC (4.30-5.90) m/uL Hgb (13.0-17.5) gm/dL Hct (39.0-53.0) % MCV (80.0-100.0) fL MCH (25.0-35.0) pg MCHC (31.0-37.0) g/dL RDW (11.5-15.5) % Plt Count (150-450) k/uL MPV Neutrophils % % Lymphocytes % % Monocytes % % Eosinophils % % Basophils % % Neutrophils # (1.3-7.7) k/uL Lymphocytes # (1.0-4.8) k/uL Monocytes # (0-1.0) k/uL Eosinophils # (0-0.7) k/uL Basophils # (0-0.2) k/uL Hypochromasia Poikilocytosis Anisocytosis Microcytosis PT (9.0-12.0) sec INR (<1.2) APTT (22.0-30.0) sec Sodium 128 L (137-145) mmol/L Potassium 4.2 (3.5-5.1) mmol/L Chloride 97 L (98-107) mmol/L Carbon Dioxide 26 (22-30) mmol/L Anion Gap 5 mmol/L BUN 19 (9-20) mg/dL Creatinine 1.20 (0.66-1.25) mg/dL Est GFR (CKD-EPI)AfAm 71 (>60 ml/min/1.73 sqM) Est GFR (CKD-EPI)NonAf 62 (>60 ml/min/1.73 sqM) Glucose 158 H (74-99) mg/dL Plasma Lactic Acid Amando 1.6 (0.7-2.0) mmol/L Calcium 8.7 (8.4-10.2) mg/dL Phosphorus 3.1 (2.5-4.5) mg/dL Magnesium 1.4 L (1.6-2.3) mg/dL Ferritin (22.0-322.0) ng/mL Total Bilirubin 1.3 (0.2-1.3) mg/dL AST 57 (17-59) U/L ALT 81 H (4-49) U/L Alkaline Phosphatase 163 H (38-126) U/L Lactate Dehydrogenase (313-618) U/L Creatine Kinase 23 L (55-170) U/L Troponin I <0.012 (0.000-0.034) ng/mL C-Reactive Protein (<10.0) mg/L NT-Pro-B Natriuret Pep pg/mL Total Protein 5.7 L (6.3-8.2) g/dL Albumin 2.8 L (3.5-5.0) g/dL Procalcitonin (0.02-0.09) ng/mL Urine Color Urine Appearance (Clear) Urine pH (5.0-8.0) Ur Specific [place] (1.001-1.035) Urine Protein (Negative) Urine Glucose (UA) (Negative) Urine Ketones (Negative) Urine Blood (Negative) Urine Nitrite (Negative) Urine Bilirubin (Negative) Urine Urobilinogen (<2.0) mg/dL Ur Leukocyte Esterase (Negative) Influenza Type A RNA (Not Detectd) Influenza Type B (PCR) (Not Detectd) 05/06/20 05/06/20 05/06/20 Range/Units 05:51 06:23 06:30 WBC (3.8-10.6) k/uL RBC (4.30-5.90) m/uL Hgb (13.0-17.5) gm/dL Hct (39.0-53.0) % MCV (80.0-100.0) fL MCH (25.0-35.0) pg MCHC (31.0-37.0) g/dL RDW (11.5-15.5) % Plt Count (150-450) k/uL MPV Neutrophils % % Lymphocytes % % Monocytes % % Eosinophils % % Basophils % % Neutrophils # (1.3-7.7) k/uL Lymphocytes # (1.0-4.8) k/uL Monocytes # (0-1.0) k/uL Eosinophils # (0-0.7) k/uL Basophils # (0-0.2) k/uL Hypochromasia Poikilocytosis Anisocytosis Microcytosis PT (9.0-12.0) sec INR (<1.2) APTT (22.0-30.0) sec Sodium (137-145) mmol/L Potassium (3.5-5.1) mmol/L Chloride (98-107) mmol/L Carbon Dioxide (22-30) mmol/L Anion Gap mmol/L BUN (9-20) mg/dL Creatinine (0.66-1.25) mg/dL Est GFR (CKD-EPI)AfAm (>60 ml/min/1.73 sqM) Est GFR (CKD-EPI)NonAf (>60 ml/min/1.73 sqM) Glucose (74-99) mg/dL Plasma Lactic Acid Amando (0.7-2.0) mmol/L Calcium (8.4-10.2) mg/dL Phosphorus (2.5-4.5) mg/dL Magnesium (1.6-2.3) mg/dL Ferritin 85.5 (22.0-322.0) ng/mL Total Bilirubin (0.2-1.3) mg/dL AST (17-59) U/L ALT (4-49) U/L Alkaline Phosphatase (38-126) U/L Lactate Dehydrogenase 469 (313-618) U/L Creatine Kinase (55-170) U/L Troponin I (0.000-0.034) ng/mL C-Reactive Protein 335.0 H (<10.0) mg/L NT-Pro-B Natriuret Pep 574 pg/mL Total Protein (6.3-8.2) g/dL Albumin (3.5-5.0) g/dL Procalcitonin (0.02-0.09) ng/mL Urine Color Urine Appearance (Clear) Urine pH (5.0-8.0) Ur Specific [place] (1.001-1.035) Urine Protein (Negative) Urine Glucose (UA) (Negative) Urine Ketones (Negative) Urine Blood (Negative) Urine Nitrite (Negative) Urine Bilirubin (Negative) Urine Urobilinogen (<2.0) mg/dL Ur Leukocyte Esterase (Negative) Influenza Type A RNA Not Detected (Not Detectd) Influenza Type B (PCR) Not Detected (Not Detectd) 05/06/20 Range/Units 06:30 WBC (3.8-10.6) k/uL RBC (4.30-5.90) m/uL Hgb (13.0-17.5) gm/dL Hct (39.0-53.0) % MCV (80.0-100.0) fL MCH (25.0-35.0) pg MCHC (31.0-37.0) g/dL RDW (11.5-15.5) % Plt Count (150-450) k/uL MPV Neutrophils % % Lymphocytes % % Monocytes % % Eosinophils % % Basophils % % Neutrophils # (1.3-7.7) k/uL Lymphocytes # (1.0-4.8) k/uL Monocytes # (0-1.0) k/uL Eosinophils # (0-0.7) k/uL Basophils # (0-0.2) k/uL Hypochromasia Poikilocytosis Anisocytosis Microcytosis PT (9.0-12.0) sec INR (<1.2) APTT (22.0-30.0) sec Sodium (137-145) mmol/L Potassium (3.5-5.1) mmol/L Chloride (98-107) mmol/L Carbon Dioxide (22-30) mmol/L Anion Gap mmol/L BUN (9-20) mg/dL Creatinine (0.66-1.25) mg/dL Est GFR (CKD-EPI)AfAm (>60 ml/min/1.73 sqM) Est GFR (CKD-EPI)NonAf (>60 ml/min/1.73 sqM) Glucose (74-99) mg/dL Plasma Lactic Acid [place]ando (0.7-2.0) mmol/L Calcium (8.4-10.2) mg/dL Phosphorus (2.5-4.5) mg/dL Magnesium (1.6-2.3) mg/dL Ferritin (22.0-322.0) ng/mL Total Bilirubin (0.2-1.3) mg/dL AST (17-59) U/L ALT (4-49) U/L Alkaline Phosphatase (38-126) U/L Lactate Dehydrogenase (313-618) U/L Creatine Kinase (55-170) U/L Troponin I (0.000-0.034) ng/mL C-Reactive Protein (<10.0) mg/L NT-Pro-B Natriuret Pep pg/mL Total Protein (6.3-8.2) g/dL Albumin (3.5-5.0) g/dL Procalcitonin 0.32 H (0.02-0.09) ng/mL Urine Color Urine Appearance (Clear) Urine pH (5.0-8.0) Ur Specific [place] (1.001-1.035) Urine Protein (Negative) Urine Glucose (UA) (Negative) Urine Ketones (Negative) Urine Blood (Negative) Urine Nitrite (Negative) Urine Bilirubin (Negative) Urine Urobilinogen (<2.0) mg/dL Ur Leukocyte Esterase (Negative) Influenza Type A RNA (Not Detectd) Influenza Type B (PCR) (Not Detectd) Disposition Decision Time: 08:03 <Rafa Ashby - Last Filed: 05/06/20 08:04> Is patient prescribed a controlled substance at d/c from ED?: No <Alexander Hayden - Last Filed: 05/07/20 01:38> Clinical Impression: Fever, Dehydration, History of renal transplant, History of rectal cancer Disposition: ADMITTED IP TO THIS HOSP Condition: Fair
[2020-05-06 06:03] LABS: Anisocytosis Slight; Basophils % (A) 0 %; Eosinophils % (A) 0 %; HCT 29.1 % (39.0-53.0); HGB 9.4 gm/dL (13.0-17.5); Hypochromasia Slight; Lymphocytes # (A) 0.8 k/uL (1.0-4.8); Lymphocytes % (A) 7 %; MCH 27.2 pg (25.0-35.0); MCHC 32.3 g/dL (31.0-37.0); MCV 84.2 fL (80.0-100.0); Mean Platelet Volume 8.3; Microcytosis Slight; Monocytes # (A) 0.5 k/uL (0-1.0); Monocytes % (A) 4 %; Neutrophils # (A) 10.8 k/uL (1.3-7.7); Neutrophils % (A) 88 %; Platelet Count 295 k/uL (150-450); Poikilocytosis Slight; RBC 3.45 m/uL (4.30-5.90); RDW 19.7 % (11.5-15.5); WBC 12.3 k/uL (3.8-10.6)
[2020-05-06 06:06] LABS: Appearance,Urine Clear (Clear); Bilirubin,Urine Negative (Negative); Blood,Urine Negative (Negative); Color,Urine Yellow; Glucose,Urine (UA) Negative (Negative); Ketones,Urine Negative (Negative); Leukocyte Esterase,Urine Negative (Negative); Nitrite,Urine Negative (Negative); Protein,Urine Trace (Negative); Specific Gravity,Urine 1.016 (1.001-1.035)
[2020-05-06 06:21] LABS: Albumin 2.8 g/dL (3.5-5.0); Calcium 8.7 mg/dL (8.4-10.2); Magnesium 1.4 mg/dL (1.6-2.3); Phosphorus 3.1 mg/dL (2.5-4.5); Potassium 4.2 mmol/L (3.5-5.1); Total Bilirubin 1.3 mg/dL (0.2-1.3); Total Protein 5.7 g/dL (6.3-8.2)
[2020-05-06] MEDS ORDERED: ACETAMINOPHEN TAB 500 MG TAB PO STA (06:21)
[2020-05-06] MEDS ORDERED: KETOROLAC 15 MG/ML 1 ML VIAL IVP STA (06:21)
[2020-05-06] MEDS ORDERED: ALBUTEROL NEBULIZED 2.5 MG/3 ML INHALATION PRN (06:21)
[2020-05-06 06:26] LABS: Partial Thromboplastin Time 27.4 sec (22.0-30.0); Prothrombin Time 10.3 sec (9.0-12.0)
[2020-05-06] MEDS ORDERED: SODIUM CHLORIDE 0.9% 1,000 ML IV ONE (06:55)
--- NOTE | 2020-05-06 07:12 | XR ---
EXAM: XR Abdomen, 2 Views CLINICAL HISTORY: ITS.REASON XR Reason: pain TECHNIQUE: Frontal view of the abdomen/pelvis with upright view of the abdomen. COMPARISON: none available FINDINGS: Intraperitoneal space: No free air. Gastrointestinal tract: Unremarkable. No dilation. Moderate fecal burden throughout the colon. Bones/joints: Degenerative disc disease of the lumbar spine. Midline surgical mayra in place. IMPRESSION: Nonobstructive bowel gas pattern. Moderate fecal burden throughout the colon.
[2020-05-06] MEDS ORDERED: ZOLPIDEM 5 MG TAB PO PRN ×2 (07:52→07:53)
--- NOTE | 2020-05-06 07:58 | P.HPIM ---
History of Present Illness H&P Date: 05/06/20 Chief Complaint: Abdominal pain with back pain This is history and physical on 70-year-old white male status post colectomy related to colorectal cancer. The patient is struggling for the last 2 days with worsening back pain and abdominal pain. Appetite has been nominal but there is no worsening insomnia. No significant nausea, vomiting or diarrhea. Workup in the emergency room was done, coronavirus PCR is pending. The patient is essentially admitted for pain control. And coronavirus workup. Review of Systems Constitutional: Denies chills, Denies fever Eyes: denies blurred vision, denies pain Ears, nose, mouth and throat: Denies headache, Denies sore throat Cardiovascular: Denies chest pain, Denies shortness of breath Respiratory: Denies cough Gastrointestinal: Reports as per HPI, Reports abdominal pain Musculoskeletal: Denies myalgias Past Medical History Past Medical History: Cancer, Hyperlipidemia, Hypertension, Myocardial Infarction (ND), Renal Disease Additional Past Medical History / Comment(s): kidney transplant, heart problem, radiation and chemo-last 03/17/20 for colorectal cancer/esophageal cancer, gout, Last Myocardial Infarction Date:: unknown History of Any Multi-Drug Resistant Organisms: None Reported Past Surgical History: Heart Catheterization Additional Past Surgical History / Comment(s): kidney transplant 2008, dialysis fistual x 3/later removed, nicky cataract with implants, colonoscopies, peritoneal dialysis catheter/later removed Past Anesthesia/Blood Transfusion Reactions: Motion Sickness Past Psychological History: No Psychological Hx Reported Smoking Status: Never smoker Past Alcohol Use History: None Reported Additional Past Alcohol Use History / Comment(s): quit smoking cigars 25 yrs ago Past Drug Use History: None Reported - Past Family History Sister(s) Family Medical History: Cancer Medications and Allergies Home Medications Medication Instructions Recorded Confirmed Type Acetaminophen [Tylenol] 500 mg PO HS 04/20/20 05/06/20 History Allopurinol [Zyloprim] 200 mg PO BID 04/20/20 05/06/20 History Aspirin [Adult Low Dose Aspirin EC] 81 mg PO DAILY 04/20/20 05/06/20 History Hydrochlorothiazide 12.5 mg PO DAILY 04/20/20 05/06/20 History [hydroCHLOROthiazide] Isosorbide Mononitrate ER [Imdur] 30 mg PO DAILY 04/20/20 05/06/20 History Melatonin 5 mg PO HS 04/20/20 05/06/20 History Metoprolol Tartrate [Lopressor] 50 mg PO BID 04/20/20 05/06/20 History Multivitamins, Thera [Multivitamin 1 tab PO DAILY 04/20/20 05/06/20 History (formulary)] Pantoprazole Sodium [Protonix] 40 mg PO DAILY 04/20/20 05/06/20 History Sertraline [Zoloft] 50 mg PO DAILY 04/20/20 05/06/20 History amLODIPine [Norvasc] 5 mg PO DAILY 04/20/20 05/06/20 History cycloSPORINE [SandIMMUNE] 75 mg PO BID 04/20/20 05/06/20 History predniSONE 5 mg PO BID 04/20/20 05/06/20 History Docusate [Colace] 100 mg PO BID #30 capsule 04/28/20 05/06/20 Rx Atorvastatin Calcium [Lipitor] 20 mg PO HS 05/06/20 05/06/20 History HYDROcodone/APAP 10-325MG [[place] 1 tab PO Q4H PRN 05/06/20 05/06/20 History 10-325] Allergies Allergy/AdvReac Type Severity Reaction Status Date / Time No Known Allergies Allergy Verified 05/06/20 07:20 Physical Exam Vitals: Vital Signs Temp Pulse Resp BP Pulse Ox 05/06/20 07:54 99.4 F 96 18 119/58 96 05/06/20 05:45 100.9 F H 84 18 137/62 98 Intake and Output 05/05/20 05/06/20 05/06/20 22:59 06:59 14:59 Other: Weight 108.862 kg - Constitutional General appearance: no acute distress - EENT Eyes: EOMI - Neck Neck: no lymphadenopathy - Respiratory Respiratory: bilateral: CTA - Cardiovascular Rhythm: regular Heart sounds: normal: S1, S2 Abnormal Heart Sounds: no S3 Gallop - Gastrointestinal General gastrointestinal: soft, no tenderness - Musculoskeletal Musculoskeletal: generalized weakness - Psychiatric Psychiatric: A&O x's 3, appropriate affect Results CBC & Chem 7: 05/06/20 05:51 05/06/20 05:51 Labs: Abnormal Lab Results - Last 24 Hours (Table) 05/06/20 05/06/20 05/06/20 Range/Units 05:51 05:51 05:51 WBC 12.3 H (3.8-10.6) k/uL RBC 3.45 L (4.30-5.90) m/uL Hgb 9.4 L (13.0-17.5) gm/dL Hct 29.1 L (39.0-53.0) % RDW 19.7 H (11.5-15.5) % Neutrophils # 10.8 H (1.3-7.7) k/uL Lymphocytes # 0.8 L (1.0-4.8) k/uL Sodium 128 L (137-145) mmol/L Chloride 97 L (98-107) mmol/L Glucose 158 H (74-99) mg/dL Magnesium 1.4 L (1.6-2.3) mg/dL ALT 81 H (4-49) U/L Alkaline Phosphatase 163 H (38-126) U/L Creatine Kinase 23 L (55-170) U/L C-Reactive Protein (<10.0) mg/L Total Protein 5.7 L (6.3-8.2) g/dL Albumin 2.8 L (3.5-5.0) g/dL Urine Protein Trace H (Negative) 05/06/20 Range/Units 06:23 WBC (3.8-10.6) k/uL RBC (4.30-5.90) m/uL Hgb (13.0-17.5) gm/dL Hct (39.0-53.0) % RDW (11.5-15.5) % Neutrophils # (1.3-7.7) k/uL Lymphocytes # (1.0-4.8) k/uL Sodium (137-145) mmol/L Chloride (98-107) mmol/L Glucose (74-99) mg/dL Magnesium (1.6-2.3) mg/dL ALT (4-49) U/L Alkaline Phosphatase (38-126) U/L Creatine Kinase (55-170) U/L C-Reactive Protein 335.0 H (<10.0) mg/L Total Protein (6.3-8.2) g/dL Albumin (3.5-5.0) g/dL Urine Protein (Negative) Assessment and Plan (1) Insomnia Current Visit: Yes Status: Acute Code(s): G47.00 - INSOMNIA, UNSPECIFIED SNOMED Code(s): 534991214 (2) Coronavirus infection Current Visit: Yes Status: Acute Code(s): B34.2 - CORONAVIRUS INFECTION, UNSPECIFIED SNOMED Code(s): 137390134 (3) Dehydration Current Visit: Yes Status: Acute Code(s): E86.0 - DEHYDRATION SNOMED Code(s): 14606184 (4) History of rectal cancer Current Visit: Yes Status: Acute Code(s): Z85.048 - PRSNL HX OF MALIG NEOPLM OF RECTUM, RECTOSIG JUNCT, AND ANUS SNOMED Code(s): 284153925 (5) History of renal transplant Current Visit: Yes Status: Acute Code(s): Z94.0 - KIDNEY TRANSPLANT STATUS SNOMED Code(s): 731814760 Plan: Coronavirus PCR is pending. Check CBC and CMP in a.m. Reconcile medications. Consult surgery since she is so close to postoperative treatment. Dr. Ziegler's group will be covering for the weekend.
--- NOTE | 2020-05-06 08:07 | CT ---
EXAMINATION TYPE: CT abdomen pelvis w con DATE OF EXAM: 05/06/2020 COMPARISON: PET/CT 01/08/2020 HISTORY: Pain. History of rectal carcinoma CT DLP: 2307.4 mGycm CONTRAST: CT scan of the abdomen and pelvis is performed without Oral Contrast and with IV Contrast, patient in jected with 80 mL of Isovue 300. FINDINGS: LUNG BASES-: No visible nodule. No infiltrate. LIVER/GB: No calcified gallstones. Multiple hypoattenuating lesions of the liver felt to reflect me tastatic disease. Biliary tree is of normal caliber. PANCREAS: No inflammation. No distinct mass. SPLEEN: Splenomegaly measuring 16.7 cm craniocaudal dimension. No lesion seen. ADRENALS: No nodule. No thickening. KIDNEYS/BLADDER: Atrophic kidneys. Right pelvic kidney noted. No hydronephrosis. No nephrolithiasis . No distinct renal mass. Urinary bladder grossly unremarkable. BOWEL: There is evidence of pneumoperitoneum. The divergent colostomy is noted left lower quadrant. A t the patient's site of rectal neoplasm there is increased surrounding attenuation and several small foci of free air. The findings may be postsurgical in nature. Perforated neoplasm is not excluded. Sm all collection posterior to the prostate gland measures 2.5 cm and may reflect postoperative seroma. Small abscess is difficult to exclude. Correlate clinically. GENITAL ORGANS: No gross abnormality. LYMPH NODES: No greater than 1cm abdominal or pelvic lymph nodes are appreciated. AORTA: No significant abnormality. OSSEOUS STRUCTURES: No significant abnormality is seen. OTHER: No significant additional abnormality is seen. IMPRESSION: 1. Small amount of pneumoperitoneum and air about the rectal surgical site likely post surgical in na ture. Leak is difficult to entirely exclude however. Small fluid collection adjacent to the rectum ma y reflect seroma. Infected collection is not excluded. 2. There is evidence for liver metastases. 3. Splenomegaly.
[2020-05-06] MEDS ORDERED: AMPICILLIN-SULBACTAM 1.5 GM in SODIUM CHLORIDE 0.9% 50 ML IVPB STA (08:11)
[2020-05-06] MEDS ORDERED: AMPICILLIN-SULBACTAM 1.5 GM in SODIUM CHLORIDE 0.9% 50 ML IVPB SCH (08:15)
[2020-05-06] MEDS ORDERED: MORPHINE SULFATE 4 MG/ML SYRINGE IVP STA (09:12)
--- NOTE | 2020-05-06 09:55 | XR ---
EXAMINATION TYPE: XR chest 1V DATE OF EXAM: 05/06/2020 COMPARISON: Chest x-ray 04/03/2010 HISTORY: Fever TECHNIQUE: Single frontal view of the chest is obtained. FINDINGS: Technique is somewhat apical lordotic. There is no focal air space opacity, pleural effusio n, or pneumothorax seen. The cardiac silhouette size is showing heart to be upper limit of normal fo r size, may be technical. The osseous structures are intact. There are overlying cardiac leads. IMPRESSION: No acute process.
[2020-05-06 11:04] LABS: Ferritin 85.5 ng/mL (22.0-322.0)
[2020-05-06] MEDS ORDERED: HYDROmorphone 0.5 MG/0.5 ML SYRINGE IVP PRN (11:59)
--- NOTE | 2020-05-06 12:07 | P.GSCN ---
History of Present Illness Consult date: 05/06/20 Reason for Consult: Postoperative pain History of present illness: 70-year-old male well-known to our service. Patient underwent abdominal per ineal resection on 04/21. A was hospitalized for approximately one week postoperatively and was then discharged home. He was just seen in the office 2 days ago. Patient has had slightly more than expected abdominal discomfort since the very onset. When he was seen 2 days ago he did feel the pain was gradually improving post discharge. He was eating although less than normal amounts. Ostomy was functioning. He was afebrile. Came to the ER this morning with his significant other. He was apparently having increased fatigue. Was not getting out of his bed or chair. Appetite was more diminished. There was questionable confusion. He was having some shortness of breath as well. He was found to have a low-grade fever in the hospital. The patient did have confusion postoperatively with the use of narcotics last admission. CAT scan was obtained. CAT scan was reviewed. There are some inflammatory changes in the presacral space from the recent proctectomy. There are a few small air bubbles in that area. There are also some air bubbles in the abdomen consistent with residual pneumoperitoneum. The patient did not have any significant adhesions or need for any bowel resection at the time of his APR. No significant inflammatory changes of the bowel are evident. The ostomy appears to be healing nicely. New finding of liver masses unfortunately has been identified on this CAT scan. These were not seen intraoperatively nor were the identified on PET scan from December. White blood cell count elevated at 12.3. Lactic acid normal. Heart rate normal. T-max 100.9. Review of Systems The patient denies any acute changes in vision or hearing, no dysphagia or odynophagia, no dysuria or hematuria, no headache, no runny nose, no rectal bleeding or melena Past Medical History Past Medical History: Cancer, Chest Pain / Angina, GERD/Reflux, Hyperlipidemia, Hypertension, Renal Disease Additional Past Medical History / Comment(s): Recent diagnosis colorectal/esophageal cancer and has had chemo/radiation treatments then surgery on 04/22/20-abdominal peritoneal resection/colostomy. Other hx: CKD with past peritoneal/hemodialysis then R kidney transplant 06/22/2008, past skin cancers with removal, IBS, diverticular disease, benign colon polyps, gout bilateral feet, Last Myocardial Infarction Date:: unknown History of Any Multi-Drug Resistant Organisms: None Reported Past Surgical History: Heart Catheterization Additional Past Surgical History / Comment(s): 04/21/20 abdominal peritoneal resection/colostomy, colonoscopies, peritoneal catheter since removed, L arm fistula, 2009 R renal transplant, skin cancer removals. Past Anesthesia/Blood Transfusion Reactions: No Reported Reaction, Motion Sickness Smoking Status: Former smoker - Past Family History Sister(s) Family Medical History: Cancer Father Family Medical History: No Reported History Additional Family Medical History / Comment(s): Father was healthy Mother Family Medical History: No Reported History Additional Family Medical History / Comment(s): Mother was healthy Medications and Allergies Home Medications Medication Instructions Recorded Confirmed Type Acetaminophen [Tylenol] 500 mg PO HS 04/20/20 05/06/20 History Allopurinol [Zyloprim] 200 mg PO BID 04/20/20 05/06/20 History Aspirin [Adult Low Dose Aspirin EC] 81 mg PO DAILY 04/20/20 05/06/20 History Hydrochlorothiazide 12.5 mg PO DAILY 04/20/20 05/06/20 History [hydroCHLOROthiazide] Isosorbide Mononitrate ER [Imdur] 30 mg PO DAILY 04/20/20 05/06/20 History Melatonin 5 mg PO HS 04/20/20 05/06/20 History Metoprolol Tartrate [Lopressor] 50 mg PO BID 04/20/20 05/06/20 History Multivitamins, Thera [Multivitamin 1 tab PO DAILY 04/20/20 05/06/20 History (formulary)] Pantoprazole Sodium [Protonix] 40 mg PO DAILY 04/20/20 05/06/20 History Sertraline [Zoloft] 50 mg PO DAILY 04/20/20 05/06/20 History amLODIPine [Norvasc] 5 mg PO DAILY 04/20/20 05/06/20 History cycloSPORINE [SandIMMUNE] 75 mg PO BID 04/20/20 05/06/20 History predniSONE 5 mg PO BID 04/20/20 05/06/20 History Docusate [Colace] 100 mg PO BID #30 capsule 04/28/20 05/06/20 Rx Atorvastatin Calcium [Lipitor] 20 mg PO HS 05/06/20 05/06/20 History HYDROcodone/APAP 10-325MG [[place] 1 tab PO Q4H PRN 05/06/20 05/06/20 History 10-325] Allergies Allergy/AdvReac Type Severity Reaction Status Date / Time No Known Allergies Allergy Verified 05/06/20 07:20 Surgical - Exam Vital Signs Temp Pulse Resp BP Pulse Ox 100.9 F H 84 18 137/62 98 05/06/20 05:45 05/06/20 05:45 05/06/20 05:45 05/06/20 05:45 05/06/20 05:45 Physical exam: General: Well-developed, well-nourished HEENT: Normocephalic, sclerae nonicteric Abdomen: Minimal distention, mild diffuse tenderness, incision with some residual mayra, no peritoneal signs on exam at this time Perineum: Incision with mild induration, no significant erythema, mild tenderness, no drainage Extremities: No edema Neuro: Alert and oriented Results - Labs 05/06/20 05:51 05/06/20 05:51 Abnormal Lab Results - Last 24 Hours (Table) 05/06/20 05/06/20 05/06/20 Range/Units 05:51 05:51 05:51 WBC 12.3 H (3.8-10.6) k/uL RBC 3.45 L (4.30-5.90) m/uL Hgb 9.4 L (13.0-17.5) gm/dL Hct 29.1 L (39.0-53.0) % RDW 19.7 H (11.5-15.5) % Neutrophils # 10.8 H (1.3-7.7) k/uL Lymphocytes # 0.8 L (1.0-4.8) k/uL Sodium 128 L (137-145) mmol/L Chloride 97 L (98-107) mmol/L Glucose 158 H (74-99) mg/dL Magnesium 1.4 L (1.6-2.3) mg/dL ALT 81 H (4-49) U/L Alkaline Phosphatase 163 H (38-126) U/L Creatine Kinase 23 L (55-170) U/L C-Reactive Protein (<10.0) mg/L Total Protein 5.7 L (6.3-8.2) g/dL Albumin 2.8 L (3.5-5.0) g/dL Procalcitonin (0.02-0.09) ng/mL Urine Protein Trace H (Negative) 05/06/20 05/06/20 Range/Units 06:23 06:30 WBC (3.8-10.6) k/uL RBC (4.30-5.90) m/uL Hgb (13.0-17.5) gm/dL Hct (39.0-53.0) % RDW (11.5-15.5) % Neutrophils # (1.3-7.7) k/uL Lymphocytes # (1.0-4.8) k/uL Sodium (137-145) mmol/L Chloride (98-107) mmol/L Glucose (74-99) mg/dL Magnesium (1.6-2.3) mg/dL ALT (4-49) U/L Alkaline Phosphatase (38-126) U/L Creatine Kinase (55-170) U/L C-Reactive Protein 335.0 H (<10.0) mg/L Total Protein (6.3-8.2) g/dL Albumin (3.5-5.0) g/dL Procalcitonin 0.32 H (0.02-0.09) ng/mL Urine Protein (Negative) Diabetes panel 05/06/20 Range/Units 05:51 Sodium 128 L (137-145) mmol/L Potassium 4.2 (3.5-5.1) mmol/L Chloride 97 L (98-107) mmol/L Carbon Dioxide 26 (22-30) mmol/L BUN 19 (9-20) mg/dL Creatinine 1.20 (0.66-1.25) mg/dL Glucose 158 H (74-99) mg/dL Calcium 8.7 (8.4-10.2) mg/dL AST 57 (17-59) U/L ALT 81 H (4-49) U/L Alkaline Phosphatase 163 H (38-126) U/L Total Protein 5.7 L (6.3-8.2) g/dL Albumin 2.8 L (3.5-5.0) g/dL Calcium panel 05/06/20 Range/Units 05:51 Calcium 8.7 (8.4-10.2) mg/dL Phosphorus 3.1 (2.5-4.5) mg/dL Albumin 2.8 L (3.5-5.0) g/dL Pituitary panel 05/06/20 Range/Units 05:51 Sodium 128 L (137-145) mmol/L Potassium 4.2 (3.5-5.1) mmol/L Chloride 97 L (98-107) mmol/L Carbon Dioxide 26 (22-30) mmol/L BUN 19 (9-20) mg/dL Creatinine 1.20 (0.66-1.25) mg/dL Glucose 158 H (74-99) mg/dL Calcium 8.7 (8.4-10.2) mg/dL Adrenal panel 05/06/20 Range/Units 05:51 Sodium 128 L (137-145) mmol/L Potassium 4.2 (3.5-5.1) mmol/L Chloride 97 L (98-107) mmol/L Carbon Dioxide 26 (22-30) mmol/L BUN 19 (9-20) mg/dL Creatinine 1.20 (0.66-1.25) mg/dL Glucose 158 H (74-99) mg/dL Calcium 8.7 (8.4-10.2) mg/dL Total Bilirubin 1.3 (0.2-1.3) mg/dL AST 57 (17-59) U/L ALT 81 H (4-49) U/L Alkaline Phosphatase 163 H (38-126) U/L Total Protein 5.7 L (6.3-8.2) g/dL Albumin 2.8 L (3.5-5.0) g/dL Assessment and Plan (1) History of rectal cancer Narrative/Plan: 70-year-old male readmitted after recent APR. CAT scan findings reviewed with the patient, Dr. Escobar, and his significant other by phone. Small volume of pneumoperitoneum, inflammatory changes, and new findings of suspected liver metastasis reviewed. At this time agree with broad-spectrum antibiotics. Agree with infectious disease consult. No plans for reexploration currently. We'll monitor closely. Current Visit: Yes Status: Acute Code(s): Z85.048 - PRSNL HX OF MALIG NEOPLM OF RECTUM, RECTOSIG JUNCT, AND ANUS SNOMED Code(s): 364943336
[2020-05-06] MEDS: KETOROLAC 15 MG/ML 1 ML VIAL IVP SCH ×3 (12:54→23:17)
[2020-05-06] MEDS: amLODIPine 5 MG TAB PO SCH (13:47)
[2020-05-06] MEDS: hydroCHLOROthiazide 12.5 MG CAP PO SCH (13:48)
[2020-05-06] MEDS: ISOSORBIDE MONONITRATE ER 30 MG TAB.ER.24H PO SCH (13:49)
[2020-05-06] MEDS: allopurinoL 100 MG TAB PO SCH ×2 (13:55→21:09)
[2020-05-06] MEDS: MULTIVITAMINS, THERA 1 EACH TAB PO SCH (13:56)
[2020-05-06] MEDS: SERTRALINE 50 MG TAB PO SCH (13:56)
[2020-05-06] MEDS: ASPIRIN 81 MG PO SCH (13:56)
[2020-05-06] MEDS: DOCUSATE 100 MG CAP PO SCH ×2 (13:56→21:09)
[2020-05-06] MEDS: METOPROLOL TARTRATE 50 MG TAB PO SCH ×2 (13:57→21:09)
[2020-05-06] MEDS: cycloSPORINE 25 MG CAP PO SCH ×2 (13:57→21:09)
[2020-05-06] MEDS: PANTOPRAZOLE 40 MG TABLET PO SCH (14:26)
[2020-05-06] MEDS: predniSONE 5 MG TAB PO SCH ×2 (14:27→21:09)
[2020-05-06] MEDS: metroNIDAZOLE-NS PMX 500 MG in SALINE 1 100ML.BAG IVPB SCH ×2 (16:15→23:17)
[2020-05-06] MEDS: AMPICILLIN-SULBACTAM 1.5 GM in SODIUM CHLORIDE 0.9% 50 ML IVPB SCH ×2 (16:36→21:10)
[2020-05-06] MEDS: HYDROcodone/APAP 10-325MG 1 EACH TAB PO PRN (21:09)
[2020-05-06] MEDS: ATORVASTATIN 20 MG TAB PO SCH (21:09)
[2020-05-07] MEDS: AMPICILLIN-SULBACTAM 3 GM in SODIUM CHLORIDE 0.9% 50 ML IVPB SCH ×2 (01:31→06:11)
[2020-05-07 05:58] LABS: Anisocytosis Slight; HCT 29.4 % (39.0-53.0); HGB 9.3 gm/dL (13.0-17.5); Hypochromasia Moderate; MCHC 31.7 g/dL (31.0-37.0); MCV 85.1 fL (80.0-100.0); Mean Platelet Volume 7.5; Microcytosis Slight; Platelet Count 291 k/uL (150-450); Poikilocytosis Slight; RBC 3.45 m/uL (4.30-5.90); RDW 19.7 % (11.5-15.5); WBC 11.4 k/uL (3.8-10.6)
[2020-05-07] MEDS: KETOROLAC 15 MG/ML 1 ML VIAL IVP SCH ×4 (06:10→23:20)
--- NOTE | 2020-05-07 08:13 | CONS ---
CONSULTATION DATE OF SERVICE: 05/06/2020 REASON FOR CONSULTATION: Abdominal infection. HISTORY OF PRESENT ILLNESS: The patient is a 70-year-old male who is status post abdominoperitoneal resection on 04/21/2020. The patient was subsequently discharged home. The patient is now presenting back to the hospital with chief complaint of increasing pain in the abdominal area. Patient described the pain to be more of a dull aching, at times sharp in intensity, can be 6-7/10 and no radiation. The patient did have some nausea but no vomiting. Did have decreased oral intake. The patient did have some chills but denies high-grade fever. With these symptoms the patient was brought to the ER. The patient on admission to the hospital did have a low-grade fever. He did have a CT of abdominal and pelvis which did show some inflammatory changes the pre sacral space from recent and some residual pneumoperitoneum. The patient did have white count of 12.3. Influenza PCR was negative. Urine was negative. The patient was started on Unasyn 1.5 g q.6 hours. Infectious Disease was consulted for further management of antibiotic therapy. REVIEW OF SYSTEMS: Positive points have been mentioned in HPI. Rest of systems are negative. PAST MEDICAL HISTORY: Significant for hypertension, hyperlipidemia, [place], renal disease, history of kidney transplant, colorectal cancer. PAST SURGICAL HISTORY: Heart catheterization, kidney transplant, dialysis fistula, bilateral cataract with implant, colonoscopy and recent partial colectomy. SOCIAL HISTORY: No history of smoking. Quit cigars 25 years ago. No alcohol or drug use. FAMILY HISTORY: Sister with a history of cancer. ALLERGIES: No known drug allergies. MEDICATIONS: Include the patient is currently on [place], Ventolin, Zyloprim, Norvasc, Unasyn 1.5 g q.6 hours, aspirin, Lipitor, Cyclosporin, Colace, hydrochlorothiazide, Dilaudid, Imdur, Toradol, Lopressor, Zoloft, and Ambien. PHYSICAL EXAMINATION: Blood pressure is 118/72 with a pulse of 64, temperature 97.7, T-max is 100.9. She is 97% on room air. GENERAL DESCRIPTION: An elderly male lying in bed in no distress. No tachypnea or accessory muscle of respiration use. HEENT: Shows slight pallor. No scleral icterus. Oral mucous membranes are dry. No pharyngeal erythema or thrush. NECK: Trachea is central, no thyromegaly. LUNGS: Unlabored breathing, clear to auscultation anteriorly. No wheeze or crackle. HEART: S1, S2. Regular rate and rhythm. ABDOMEN: Soft, not distended, no guarding or rigidity. No organomegaly. EXTREMITIES: No edema of the feet. SKIN: Examination shows no rash or mass palpable. NEUROLOGICAL: Patient is awake, alert, oriented. Mood and affect normal. LABS: Hemoglobin 9.4, white count 12.3. BUN of 19, creatinine 1.20. mildly elevated. was elevated. Urine is negative. [place] PCR was negative. DIAGNOSTIC IMPRESSION: Patient admitted to the hospital with abdominal pain. Did have a low-grade fever in this patient who is status post recent surgery for colon, now with evidence of inflammatory changes but no evidence of any drainable abscess and new liver . Will need to cover for the enteric gram-negative with likely pathogen both aerobes and anaerobes. PLAN: 1. We will increase the dose of Unasyn to 3 g q.6 hours. 2. Gentle IV fluid. 3. Will follow as well as cultures to further adjust medication if needed. Thank you for this consultation. Will follow the patient along with you. MMODL / IJN: [id number] /
[2020-05-07] MEDS: METOPROLOL TARTRATE 50 MG TAB PO SCH ×2 (08:56→21:55)
[2020-05-07] MEDS: ASPIRIN 81 MG PO SCH (08:56)
[2020-05-07] MEDS: DOCUSATE 100 MG CAP PO SCH ×2 (08:56→21:55)
[2020-05-07] MEDS: ISOSORBIDE MONONITRATE ER 30 MG TAB.ER.24H PO SCH (08:56)
[2020-05-07] MEDS: PANTOPRAZOLE 40 MG TABLET PO SCH (08:56)
[2020-05-07] MEDS: cycloSPORINE 25 MG CAP PO SCH ×2 (08:57→21:55)
[2020-05-07] MEDS: hydroCHLOROthiazide 12.5 MG CAP PO SCH (08:57)
[2020-05-07] MEDS: predniSONE 5 MG TAB PO SCH ×2 (08:58→21:55)
[2020-05-07] MEDS: MULTIVITAMINS, THERA 1 EACH TAB PO SCH (08:58)
[2020-05-07] MEDS: SERTRALINE 50 MG TAB PO SCH (08:58)
[2020-05-07] MEDS: allopurinoL 100 MG TAB PO SCH ×2 (08:58→21:55)
[2020-05-07] MEDS: amLODIPine 5 MG TAB PO SCH (08:58)
[2020-05-07] MEDS: metroNIDAZOLE-NS PMX 500 MG in SALINE 1 100ML.BAG IVPB SCH ×3 (09:00→23:21)
[2020-05-07] MEDS: HYDROcodone/APAP 10-325MG 1 EACH TAB PO PRN ×2 (09:21→22:06)
[2020-05-07 09:30] LABS: African American GFR (CKD) 27.9 (60.0-200.0); Albumin 2.8 g/dL (3.80-4.90); Albumin/Globulin Ratio 1.4 (1.60-3.17); Anion Gap 11.6 mmol/L (4.00-12.00); BUN/Creat Ratio 11.54 Ratio (12.00-20.00); Calcium 8.2 mg/dL (8.7-10.3); Carbon Dioxide 22.4 mmol/L (21.6-31.8); Non-African American GFR(CKD) 24.1 (60.0-200.0); Potassium 5.9 mmol/L (3.5-5.5); Total Bilirubin 2.2 mg/dL (0.3-1.2); Total Protein 4.8 g/dL (6.2-8.2)
[2020-05-07] MEDS ORDERED: ONDANSETRON 4 MG/2 ML VIAL IVP PRN ×2 (10:57)
[2020-05-07 15:16] VITALS: BMI 35.4
[2020-05-07] MEDS ORDERED: MAGNESIUM HYDROXIDE 2,400 MG/10 ML CUP PO STA (16:04)
[2020-05-07] MEDS ORDERED: LACTULOSE 20 GM/30 ML CUP PO STA (16:04)
--- NOTE | 2020-05-07 16:04 | P.PN ---
Subjective Progress Note Date: 05/07/20 CHIEF COMPLAINT: Abdominal pain HISTORY OF PRESENT ILLNESS: The patient is a 70-year-old male status post APR with colostomy creation over 2 weeks ago. He reports mild improvement of his generalized abdominal pain following digital disimpaction of his ostomy per nursing. He reports constipation prior to his admission. He is eager to eat. He also reports improvement with antibiotics. ROS: No reports of nausea and vomiting. No fevers or chills. No new chest pain. PHYSICAL EXAM: VITAL SIGNS: Reviewed CONSTITUTIONAL: Well developed and in no acute distress. EYES: Conjuctivae without sclera icterus. Extraocular movements grossly intact. HEAD, EARS, NOSE, THROAT: Moist buccal mucosa. Head is atraumatic, normocephalic. Hears conversational speech. No nasal drainage. NECK: No rigidity RESPIRATORY: Non-labored respirations and equal bilateral excursions. CARDIOVASCULAR: Palpable 2+ radial pulses. ABDOMEN: Protuberant. Ostomy appliance left lower quadrant with formed stool and flatus MUSCULOSKELETAL: No gross deformity of the lower extremities noted. No clubbing. No cyanosis. SKIN: Good skin turgor. Well perfused. NEUROLOGIC: Cranial nerves II through XII grossly intact. No focal or lateralizing signs. PSYCH: Appropriate affect. Alert and oriented to person, place and time. CLINICAL LABS: WBC down from 12.3 to 11.4 STUDIES: CT of the abdomen and pelvis independently reviewed with multiple lesions along the liver. Post-surgical changes along the previous rectal site found. Moderate formed stool throughout colon. ASSESSMENT: 1. Generalized abdominal pain 2. Constipation 3. Rectal cancer 4. Liver lesions, suspicious for metastases 5. Pre-existing history of esophageal cancer 6. Morbid obesity, BMI 35.4 PLAN: 1. Laxative for constipation 2. Diet advance pending improvement of constipation 3. Continue IV antibiotics. Objective - Vital Signs Vital signs: Vital Signs Temp 98 F 05/07/20 12:07 Pulse 70 05/07/20 12:07 Resp 20 05/07/20 12:07 BP 100/66 05/07/20 12:07 Pulse Ox 96 05/07/20 12:07 Intake & Output 05/06/20 05/07/20 05/07/20 18:59 06:59 18:59 Intake Total 3050 1150 Output Total 200 Balance 3050 950 Weight 108.862 kg 108.862 kg Intake: Intake, IV Titration 650 1150 Amount Ampicillin-Sulbactam 1.5 50 gm In Sodium Chloride 0.9 % 50 ml @ 100 mls/hr IVPB ONCE STA Rx#:[id number] Sodium Chloride 0.9% 1, 500 1150 000 ml @ 100 mls/hr IV . Q10H ONE Rx#:[id number] metroNIDAZOLE-NS PMX 500 100 mg In Saline 1 100ml.bag @ 100 mls/hr IVPB Q8HR [facility] Rx#:[id number] Oral 2400 Output: Urine 200 Other: Voiding Method Toilet Urinal # Voids 5 - Labs CBC & Chem 7: 05/07/20 05:32 05/07/20 05:32 Labs: Abnormal Lab Results - Last 24 Hours (Table) 05/07/20 05/07/20 Range/Units 05:32 05:32 WBC 11.4 H (3.8-10.6) k/uL RBC 3.45 L (4.30-5.90) m/uL Hgb 9.3 L (13.0-17.5) gm/dL Hct 29.4 L (39.0-53.0) % RDW 19.7 H (11.5-15.5) % Sodium 133 L (135-145) mmol/L Potassium 5.9 H (3.5-5.5) mmol/L BUN 30.0 H (9.0-27.0) mg/dL Creatinine 2.6 H (0.6-1.5) mg/dL Est GFR (CKD-EPI)AfAm 27.9 L (60.0-200.0) Est GFR (CKD-EPI)NonAf 24.1 L (60.0-200.0) BUN/Creatinine Ratio 11.54 L (12.00-20.00) Ratio Calcium 8.2 L (8.7-10.3) mg/dL Total Bilirubin 2.2 H (0.3-1.2) mg/dL AST 47 H (14-35) U/L ALT 62 H (10-49) U/L Alkaline Phosphatase 149 H (41-126) U/L Total Protein 4.8 L (6.2-8.2) g/dL Albumin 2.80 L (3.80-4.90) g/dL Albumin/Globulin Ratio 1.40 L (1.60-3.17) g/dL Microbiology - Last 24 Hours (Table) 05/06/20 06:30 Blood Culture - Preliminary Blood No Growth after 24 hours Assessment and Plan (1) Rectal cancer Current Visit: Yes Status: Acute Code(s): C20 - MALIGNANT NEOPLASM OF RECTUM SNOMED Code(s): 978664723 (2) Morbid obesity due to excess calories Current Visit: Yes Status: Acute Code(s): E66.01 - MORBID (SEVERE) OBESITY DUE TO EXCESS CALORIES SNOMED Code(s): 665751070 (3) Leukocytosis Current Visit: Yes Status: Acute Code(s): D72.829 - ELEVATED WHITE BLOOD CELL COUNT, UNSPECIFIED SNOMED Code(s): 180943307 (4) Liver metastases Current Visit: Yes Status: Acute Code(s): C78.7 - SECONDARY MALIG NEOPLASM OF LIVER AND INTRAHEPATIC BILE DUCT SNOMED Code(s): 01155162 (5) Constipation Current Visit: Yes Status: Acute Code(s): K59.00 - CONSTIPATION, UNSPECIFIED SNOMED Code(s): 31713712 (6) Colostomy status Current Visit: Yes Status: Acute Code(s): Z93.3 - COLOSTOMY STATUS SNOMED Code(s): 226958039
[2020-05-07] MEDS: AMPICILLIN-SULBACTAM 3 GM in SODIUM CHLORIDE 0.9% 100 ML IVPB SCH (16:53)
[2020-05-07] MEDS: ATORVASTATIN 20 MG TAB PO SCH (21:55)
--- NOTE | 2020-05-07 22:08 | PN ---
PROGRESS NOTE DATE OF SERVICE: 05/07/2020 REASON FOR FOLLOWUP: Abdominal infection. INTERVAL HISTORY: Patient is currently afebrile. The patient is feeling slightly better today. His abdominal pain has improved. No chest pain, shortness of breath or cough. No abdominal pain. No diarrhea. PHYSICAL EXAMINATION: Blood pressure 100/66, pulse of 78, temperature 98. He is 93% on room air. General description is an elderly male lying in bed in no distress. Respiratory system: Unlabored breathing. Clear to auscultation anteriorly. Heart S1, S2. Regular rate and rhythm. ABDOMEN: Soft. Mildly distended. No guarding. No rigidity. . LABS: Hemoglobin 9.8, white count 29.4, with a BUN of 30, creatinine is 2.6. DIAGNOSTIC IMPRESSION AND PLAN: Patient with abdominal wound infection with recent partial colectomy in this patient who seemed to have shown some clinical improvement. White count improved. However, the patient did have significant worsening of his kidney function. He will be monitored closely. May benefit from gentle IV fluid and continue with supportive care. MMODL / IJN: [id number] /
[2020-05-08] MEDS ORDERED: DEXAMETHASONE SOD PHOSPHATE 10 MG/ML 1 ML VIAL IV STA (00:55)
[2020-05-08] MEDS ORDERED: TRIMETHOBENZAMIDE 100 MG/ML 2 ML VIAL IM STA (00:58)
[2020-05-08] MEDS: AMPICILLIN-SULBACTAM 3 GM in SODIUM CHLORIDE 0.9% 100 ML IVPB SCH ×2 (06:09→17:13)
[2020-05-08] MEDS: KETOROLAC 15 MG/ML 1 ML VIAL IVP SCH (06:09)
--- NOTE | 2020-05-08 06:35 | XR ---
EXAM: XR Chest, 1 View CLINICAL HISTORY: ITS.REASON XR Reason: Tube Placement TECHNIQUE: Frontal view of the chest. COMPARISON: No relevant prior studies available. FINDINGS/IMPRESSION: Enteric feeding tube terminates in the stomach. Low lung volumes, which accentuates bronchovascular markings. No focal infiltrate, pleural effusion, or pneumothorax. Cardiomegaly. Calcified aorta. Degenerative changes of the spine. Gaseous distention of the stomach.
[2020-05-08] MEDS: metroNIDAZOLE-NS PMX 500 MG in SALINE 1 100ML.BAG IVPB SCH ×2 (09:00→15:02)
[2020-05-08] MEDS: DOCUSATE 100 MG CAP PO SCH ×2 (09:01→20:25)
[2020-05-08] MEDS: cycloSPORINE 25 MG CAP PO SCH ×2 (09:01→20:25)
[2020-05-08] MEDS: PANTOPRAZOLE 40 MG TABLET PO SCH (09:01)
[2020-05-08] MEDS: ASPIRIN 81 MG PO SCH (09:01)
[2020-05-08] MEDS: SERTRALINE 50 MG TAB PO SCH (09:01)
[2020-05-08] MEDS: predniSONE 5 MG TAB PO SCH ×2 (09:01→20:25)
[2020-05-08] MEDS: MULTIVITAMINS, THERA 1 EACH TAB PO SCH (09:01)
[2020-05-08] MEDS: allopurinoL 100 MG TAB PO SCH ×2 (09:02→20:25)
[2020-05-08] MEDS: ISOSORBIDE MONONITRATE ER 30 MG TAB.ER.24H PO SCH (09:02)
[2020-05-08] MEDS: amLODIPine 5 MG TAB PO SCH (09:02)
[2020-05-08] MEDS: hydroCHLOROthiazide 12.5 MG CAP PO SCH (09:02)
[2020-05-08] MEDS: METOPROLOL TARTRATE 50 MG TAB PO SCH ×2 (09:02→20:25)
--- NOTE | 2020-05-08 10:29 | XR ---
EXAMINATION TYPE: XR abdomen 2V DATE OF EXAM: 05/08/2020 COMPARISON: 05/06/2020 HISTORY: , TECHNIQUE: One view abdominal series FINDINGS: NG tube is seen stomach. Gastric bubble somewhat distended and there are numerous dilated small bowel loops. Lung bases clear. Hypertrophic change of the spine. Surgical mayra are noted. Assessment fo r free air. IMPRESSION: 1. There are numerous dilated small bowel loops. Differential diagnosis includes obstruction versus s evere ileus.
--- NOTE | 2020-05-08 11:02 | P.NPCON ---
History of Present Illness - Reason for Consult acute renal failure - History of Present Illness Reason for consultation: Acute allograft dysfunction and renal transplant management History of present illness: Patient is a 70-year-old male seen in renal consultation for acute allograft dysfunction and kidney transplant management. Patient received a donor renal allograft in June 2008. Patient's baseline creatinine is near 1.2. It is elevated at 2.6 today. Patient has history of rectal cancer and underwent abdominal perineal resection on 04/21/2020. He currently has a colostomy. Jessica lovett came to the hospital with abdominal pain and overall weakness. His oral intake has been poor. He's been having episodes of vomiting as well. He underwent CT of the abdomen and pelvis with IV contrast on May 06 which revealed no evidence of hydronephrosis. Patient was noted to be quite constipated and was given laxatives. He is noted to have metastatic disease to the liver. He currently has an NG tube in place that was placed last night. 800 mL of output was obtained last night. He denies use of nonsteroidals at home but is receiving Toradol now. He is maintained on normal saline at 100 mL an hour. He is maintained on cyclosporine and prednisone for his antirejection medications. Blood pressure is on the lower side. He also received hydrochlorothiazide this morning. Vital signs are stable. General: The patient appeared well nourished and normally developed. HEENT: Head exam is unremarkable. Neck is without jugular venous distension. LUNGS: Breath sounds decreased. HEART: Rate and Rhythm are regular. ABDOMEN: Soft. Mild generalized tenderness. EXTREMITITES: No clubbing, cyanosis, or edema. Past Medical History Past Medical History: Cancer, Hyperlipidemia, Hypertension, Myocardial Infarction ([place]), Renal Disease Additional Past Medical History / Comment(s): kidney transplant, heart problem, radiation and chemo-last 03/17/20 for colorectal cancer/esophageal cancer, gout, Last Myocardial Infarction Date:: unknown History of Any Multi-Drug Resistant Organisms: None Reported Past Surgical History: Heart Catheterization Additional Past Surgical History / Comment(s): kidney transplant 2008, dialysis fistual x 3/later removed, nicky cataract with implants, colonoscopies, peritoneal dialysis catheter/later removed Past Anesthesia/Blood Transfusion Reactions: Motion Sickness Past Psychological History: No Psychological Hx Reported Smoking Status: Never smoker Past Alcohol Use History: None Reported Additional Past Alcohol Use History / Comment(s): quit smoking cigars 25 yrs ago Past Drug Use History: None Reported - Past Family History Sister(s) Family Medical History: Cancer Father Family Medical History: No Reported History Additional Family Medical History / Comment(s): Father was healthy Mother Family Medical History: No Reported History Additional Family Medical History / Comment(s): Mother was healthy Medications and Allergies Home Medications Medication Instructions Recorded Confirmed Type Acetaminophen [Tylenol] 500 mg PO HS 04/20/20 05/06/20 History Allopurinol [Zyloprim] 200 mg PO BID 04/20/20 05/06/20 History Aspirin [Adult Low Dose Aspirin EC] 81 mg PO DAILY 04/20/20 05/06/20 History Hydrochlorothiazide 12.5 mg PO DAILY 04/20/20 05/06/20 History [hydroCHLOROthiazide] Isosorbide Mononitrate ER [Imdur] 30 mg PO DAILY 04/20/20 05/06/20 History Melatonin 5 mg PO HS 04/20/20 05/06/20 History Metoprolol Tartrate [Lopressor] 50 mg PO BID 04/20/20 05/06/20 History Multivitamins, Thera [Multivitamin 1 tab PO DAILY 04/20/20 05/06/20 History (formulary)] Pantoprazole Sodium [Protonix] 40 mg PO DAILY 04/20/20 05/06/20 History Sertraline [Zoloft] 50 mg PO DAILY 04/20/20 05/06/20 History amLODIPine [Norvasc] 5 mg PO DAILY 04/20/20 05/06/20 History cycloSPORINE [SandIMMUNE] 75 mg PO BID 04/20/20 05/06/20 History predniSONE 5 mg PO BID 04/20/20 05/06/20 History Docusate [Colace] 100 mg PO BID #30 capsule 04/28/20 05/06/20 Rx Atorvastatin Calcium [Lipitor] 20 mg PO HS 05/06/20 05/06/20 History HYDROcodone/APAP 10-325MG [[place] 1 tab PO Q4H PRN 05/06/20 05/06/20 History 10-325] Allergies Allergy/AdvReac Type Severity Reaction Status Date / Time No Known Allergies Allergy Verified 05/06/20 07:20 Physical Exam Vitals: Vital Signs Temp Pulse Resp BP Pulse Ox 05/08/20 06:46 97.7 F 70 18 111/71 94 L 05/07/20 21:00 98.1 F 67 18 101/67 95 05/07/20 12:07 98 F 70 20 100/66 96 Intake and Output 05/07/20 05/08/20 05/08/20 22:59 06:59 14:59 Output Total 50 500 Balance -50 -500 Output: Emesis 50 500 Other: Voiding Method Urinal Urinal Weight 108.862 kg Results - Lab Results Most recent lab results Calcium 8.2 mg/dL (8.7-10.3) L 05/07/20 05:32 Phosphorus 3.1 mg/dL (2.5-4.5) 05/06/20 05:51 Magnesium 1.4 mg/dL (1.6-2.3) L 05/06/20 05:51 05/07/20 05:32 05/07/20 05:32 Assessment and Plan Plan: Assessment: 1. Acute allograft dysfunction secondary to ATN secondary to contrast-induced acute kidney injury (patient received IV contrast on May 06), hypotension, nonsteroidals, diuretics and hypovolemia. Creatinine 2.6 today. UA is fairly b enign. 2. 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 3. Chronic kidney disease stage III A secondary to calcineurin use in a solitary kidney with baseline creatinine near 1.2. 4. Rectal cancer status post abdominoperineal resection on April 21. 5. Constipation. 6. Abdominal wound infection maintained on antibiotics. Infectious disease following. 7. Ileus versus bowel obstruction. Currently has an NG tube. 8. Hypertension with chronic kidney disease. Blood pressure on the lower side. 9. Hyperkalemia secondary to acute kidney injury, nonsteroidals. 10. Hypovolemic hyponatremia improved with IV hydration. 11. Hypomagnesemia from poor intake and diuretics. Plan: Increase normal saline to 125 mL an hour. Follow-up morning labs. Check bladder scan to rule out urinary retention. Check renal ultrasound. Discontinue Toradol. Discontinue hctz. Hold amlodipine for systolic blood pressure less than 120. Check a.m. cyclosporine level. Continue to monitor renal function and urine output closely. Thank you for the consultation. I will continue to follow the patient with you during his hospital stay.
[2020-05-08 12:26] LABS: Anisocytosis Slight; Basophils % (A) 0 %; Eosinophils % (A) 0 %; HCT 29.4 % (39.0-53.0); HGB 8.6 gm/dL (13.0-17.5); Hypochromasia Marked; Lymphocytes # (A) 0.4 k/uL (1.0-4.8); Lymphocytes % (A) 3 %; MCH 25.6 pg (25.0-35.0); MCHC 29.4 g/dL (31.0-37.0); MCV 87.1 fL (80.0-100.0); Mean Platelet Volume 7.8; Monocytes # (A) 0.2 k/uL (0-1.0); Monocytes % (A) 2 %; Neutrophils # (A) 11.2 k/uL (1.3-7.7); Neutrophils % (A) 95 %; Platelet Count 333 k/uL (150-450); Poikilocytosis Slight; RBC 3.37 m/uL (4.30-5.90); WBC 11.8 k/uL (3.8-10.6)
[2020-05-08 12:38] LABS: ALT 39 U/L (4-49); AST 45 U/L (17-59); African American GFR (CKD) 36 (>60 ml/min/1.73 sqM); Albumin 2.3 g/dL (3.5-5.0); Albumin/Globulin Ratio 0.9; Alkaline Phosphatase 108 U/L (38-126); Anion Gap 9 mmol/L; Blood Urea Nitrogen 49 mg/dL (9-20); Calcium 8.1 mg/dL (8.4-10.2); Carbon Dioxide 19 mmol/L (22-30); Chloride 102 mmol/L (98-107); Globulin 2.7 g/dL; Glucose 135 mg/dL (74-99); Magnesium 1.9 mg/dL (1.6-2.3); Non-African American GFR(CKD) 31 (>60 ml/min/1.73 sqM); Potassium 5.6 mmol/L (3.5-5.1); Sodium 130 mmol/L (137-145); Total Bilirubin 1.4 mg/dL (0.2-1.3)
--- NOTE | 2020-05-08 13:23 | US ---
EXAMINATION TYPE: US kidneys/renal and bladder DATE OF EXAM: 05/08/2020 COMPARISON: CT CLINICAL HISTORY: ehsan. EXAM MEASUREMENTS: Right Kidney: 12.4 x 6.0 x 6.1 cm Left Kidney: 11.4 x 5.3 x 5.6 cm Right Pelvic Kidney: 12.6 x 6.7 x 6.0 cm Right Kidney: limited visualization Left Kidney: limited visualization Right Pelvic Kidney: wnl Bladder: wnl Bilateral Jets seen: no There is no evidence for hydronephrosis at this point in time. No nephrolithiasis is seen. No jaqueline s are identified. The urinary bladder is anechoic. IMPRESSION: No sonographic evidence of acute abnormality or hydronephrosis. Right pelvic transplant kidney.
[2020-05-08] MEDS ORDERED: INSULIN REGULAR 100 UNIT/ML VIAL IV ONE (13:28)
[2020-05-08] MEDS ORDERED: DEXTROSE 50% SYRINGE 50 ML IVP STA (13:28)
[2020-05-08] MEDS ORDERED: SODIUM BICARB 8.4% 50 ML SYR (1 MEQ/ML) IV STA (13:28)
[2020-05-08] MEDS: SODIUM BICARBONATE TAB 650 MG TAB PO SCH ×2 (14:32→20:26)
[2020-05-08] MEDS: SODIUM CHLORIDE 0.9% 1,000 ML IV SCH ×2 (14:33→20:29)
--- NOTE | 2020-05-08 16:44 | P.PN ---
Subjective Progress Note Date: 05/08/20 CHIEF COMPLAINT: Abdominal pain HISTORY OF PRESENT ILLNESS: The patient is a 70-year-old male status post APR with colostomy creation over 2 weeks ago. Since admission, he reports disimpaction of his ostomy. Yesterday, patient reportedly wanted more food to eat. He does report constipation. He was placed on lactulose and milk of magnesia. Early this morning, patient woke up with acute emesis over 500 mL recorded by nursing. I ordered and a nasogastric tube that was placed. Patient denies any nausea at this time. He reports having a moderate output from his ostomy bag. Per discussion with nursing, he has had minimal output of his ostomy bag. Patient having troubles with recollection. ROS: No fevers or chills. No new chest pain. PHYSICAL EXAM: VITAL SIGNS: Reviewed CONSTITUTIONAL: Well developed and in no acute distress. EYES: Conjuctivae without sclera icterus. Extraocular movements grossly intact. HEAD, EARS, NOSE, THROAT: Moist buccal mucosa. Head is atraumatic, normo cephalic. Hears conversational speech. No nasal drainage. NECK: No rigidity RESPIRATORY: Non-labored respirations and equal bilateral excursions. CARDIOVASCULAR: Palpable 2+ radial pulses. ABDOMEN: Protuberant. Ostomy appliance left lower quadrant with minimal flatus. MUSCULOSKELETAL: No gross deformity of the lower extremities noted. No clubbing. No cyanosis. SKIN: Good skin turgor. Well perfused. NEUROLOGIC: Cranial nerves II through XII grossly intact. No focal or lateralizing signs. PSYCH: Appropriate affect. Alert and oriented to person, place and time. CLINICAL LABS: WBC down stable 11,000+. STUDIES: Abdominal x-ray ordered and reviewed by me demonstrating moderate small bowel dilation. Ileus versus small bowel obstruction not excluded. ASSESSMENT: 1. Generalized abdominal pain 2. Constipation 3. Rectal cancer 4. Liver lesions, suspicious for metastases 5. Pre-existing history of esophageal cancer 6. Morbid obesity, BMI 35.4 7. Ileus PLAN: 1. With patient's new ileus, continue with nasogastric tube. No advancements of diet. 2. May have ice chips and popsicles. 3. May need formal disimpaction of ostomy. 4. Will need follow-up abdominal x-ray. Objective - Vital Signs Vital signs: Vital Signs Temp 97.8 F 05/08/20 11:40 Pulse 60 05/08/20 11:40 Resp 16 05/08/20 11:40 BP 97/63 05/08/20 11:40 Pulse Ox 96 05/08/20 11:40 Intake & Output 05/07/20 05/08/20 05/08/20 18:59 06:59 18:59 Intake Total 100 Output Total 550 400 Balance -550 -300 Weight 108.862 kg Intake: Intake, IV Titration 100 Amount metroNIDAZOLE-NS PMX 500 100 mg In Saline 1 100ml.bag @ 100 mls/hr IVPB Q8HR [facility] Rx#:[id number] Output: Urine 400 Emesis 550 Other: Voiding Method Urinal Urinal # Voids 2 - Labs CBC & Chem 7: 05/08/20 11:55 05/08/20 11:55 Labs: Abnormal Lab Results - Last 24 Hours (Table) 05/08/20 05/08/20 Range/Units 11:55 11:55 WBC 11.8 H (3.8-10.6) k/uL RBC 3.37 L (4.30-5.90) m/uL Hgb 8.6 L (13.0-17.5) gm/dL Hct 29.4 L (39.0-53.0) % MCHC 29.4 L (31.0-37.0) g/dL RDW 20.0 H (11.5-15.5) % Neutrophils # 11.2 H (1.3-7.7) k/uL Lymphocytes # 0.4 L (1.0-4.8) k/uL Sodium 130 L (137-145) mmol/L Potassium 5.6 H (3.5-5.1) mmol/L Carbon Dioxide 19 L (22-30) mmol/L BUN 49 H (9-20) mg/dL Creatinine 2.13 H (0.66-1.25) mg/dL Glucose 135 H (74-99) mg/dL Calcium 8.1 L (8.4-10.2) mg/dL Total Bilirubin 1.4 H (0.2-1.3) mg/dL Total Protein 5.0 L (6.3-8.2) g/dL Albumin 2.3 L (3.5-5.0) g/dL Microbiology - Last 24 Hours (Table) 05/06/20 06:30 Blood Culture - Preliminary Blood No Growth after 48 hours Assessment and Plan (1) Rectal cancer Current Visit: Yes Status: Acute Code(s): C20 - MALIGNANT NEOPLASM OF RECTUM SNOMED Code(s): 512454258 (2) Morbid obesity due to excess calories Current Visit: Yes Status: Acute Code(s): E66.01 - MORBID (SEVERE) OBESITY DUE TO EXCESS CALORIES SNOMED Code(s): 363302729 (3) Leukocytosis Current Visit: Yes Status: Acute Code(s): D72.829 - ELEVATED WHITE BLOOD CELL COUNT, UNSPECIFIED SNOMED Code(s): 827404331 (4) Liver metastases Current Visit: Yes Status: Acute Code(s): C78.7 - SECONDARY MALIG NEOPLASM OF LIVER AND INTRAHEPATIC BILE DUCT SNOMED Code(s): 78288929 (5) Constipation Current Visit: Yes Status: Acute Code(s): K59.00 - CONSTIPATION, UNSPECIFIED SNOMED Code(s): 82598317 (6) Colostomy status Current Visit: Yes Status: Acute Code(s): Z93.3 - COLOSTOMY STATUS SNOMED Code(s): 714001336 (7) Transplanted kidney Current Visit: Yes Status: Acute Code(s): Z94.0 - KIDNEY TRANSPLANT STATUS SNOMED Code(s): 256289893
[2020-05-08 17:22] LABS: Appearance,Urine Cloudy (Clear); Bilirubin,Urine Negative (Negative); Blood,Urine Negative (Negative); Color,Urine Yellow; Glucose,Urine (UA) Negative (Negative); Ketones,Urine Trace (Negative); Leukocyte Esterase,Urine Trace (Negative); Nitrite,Urine Negative (Negative); Protein,Urine Trace (Negative); RBC,Urine 1 /hpf (0-5); Specific Gravity,Urine 1.023 (1.001-1.035); Urobilinogen,Urine <2.0 mg/dL (<2.0); WBC,Urine 2 /hpf (0-5)
[2020-05-08] MEDS: ATORVASTATIN 20 MG TAB PO SCH (20:26)
[2020-05-09] MEDS: AMPICILLIN-SULBACTAM 3 GM in SODIUM CHLORIDE 0.9% 100 ML IVPB SCH ×4 (00:03→17:22)
[2020-05-09] MEDS: metroNIDAZOLE-NS PMX 500 MG in SALINE 1 100ML.BAG IVPB SCH ×3 (00:03→16:16)
--- NOTE | 2020-05-09 00:59 | P.PN ---
Subjective Progress Note Date: 05/07/20 Principal diagnosis: Constipation Colorectal cancer with recent resection and colostomy bag placement Pt. is a 70-year-old white male status post colectomy related to colorectal cancer. The patient is struggling for the last 2 days with worsening back pain and abdominal pain. Appetite has been nominal but there is no worsening insomnia. No significant nausea, vomiting or diarrhea. Workup in the emergency room was done, coronavirus PCR is pending. The patient is essentially admitted for pain control. And coronavirus workup. 05/07/2020 Patient is currently resting in the bed comfortably. She was first colostomy bag placement about 2 weeks ago. Abdominal pain improved with digital impaction of the ostomy as per nursing staff. Patient is also being continued on antibiotics. Patient has been afebrile. No chest pain or shortness of breath. No cough or sputum production. No fever no chills. Continue stool softeners and advance diet as tolerated. General surgery and ID is on board. Current medications reviewed. Objective - Vital Signs Vital signs: Vital Signs Temp 98 F 05/07/20 12:07 Pulse 70 05/07/20 12:07 Resp 20 05/07/20 12:07 BP 100/66 05/07/20 12:07 Pulse Ox 96 05/07/20 12:07 Intake & Output 05/07/20 05/07/20 05/08/20 06:59 18:59 06:59 Intake Total 1150 Output Total 200 Balance 950 Weight 108.862 kg Intake: Intake, IV Titration 1150 Amount Sodium Chloride 0.9% 1, 1150 000 ml @ 100 mls/hr IV . Q10H ONE Rx#:[id number] Output: Urine 200 Other: Voiding Method Urinal # Voids 2 - Exam PHYSICAL EXAMINATION: Patient is lying in the bed comfortably, no acute distress, awake alert and oriented.. HEENT: Normocephalic. Neck is supple. Pupils reactive. Nostrils clear. Oral cavity is moist. Ears reveal no drainage. Neck reveals no JVD, carotid bruits, or thyromegaly. CHEST EXAMINATION: Trachea is central. Symmetrical expansion. Lung reed clear to auscultation and percussion. CARDIAC: Normal S1, S2 with no gallops. No murmurs ABDOMEN: Soft.Distended and colostomy bag in place. Bowel sounds normal. No organomegaly. No abdominal bruits. Extremities: reveal no edema. No clubbing or cyanosis Neurologically awake, alert, oriented x3 with well-coordinated movements. No focal deficits noted Skin: No rash or skin lesions. Psychiatric: Coperative. Nonsuicidal Musculoskeletal: No joint swelling or deformity. Normal range of motion. - Labs CBC & Chem 7: 05/08/20 11:55 05/08/20 20:27 Labs: Abnormal Lab Results - Last 24 Hours (Table) 05/07/20 05/07/20 Range/Units 05:32 05:32 WBC 11.4 H (3.8-10.6) k/uL RBC 3.45 L (4.30-5.90) m/uL Hgb 9.3 L (13.0-17.5) gm/dL Hct 29.4 L (39.0-53.0) % RDW 19.7 H (11.5-15.5) % Sodium 133 L (135-145) mmol/L Potassium 5.9 H (3.5-5.5) mmol/L BUN 30.0 H (9.0-27.0) mg/dL Creatinine 2.6 H (0.6-1.5) mg/dL Est GFR (CKD-EPI)AfAm 27.9 L (60.0-200.0) Est GFR (CKD-EPI)NonAf 24.1 L (60.0-200.0) BUN/Creatinine Ratio 11.54 L (12.00-20.00) Ratio Calcium 8.2 L (8.7-10.3) mg/dL Total Bilirubin 2.2 H (0.3-1.2) mg/dL AST 47 H (14-35) U/L ALT 62 H (10-49) U/L Alkaline Phosphatase 149 H (41-126) U/L Total Protein 4.8 L (6.2-8.2) g/dL Albumin 2.80 L (3.80-4.90) g/dL Albumin/Globulin Ratio 1.40 L (1.60-3.17) g/dL Microbiology - Last 24 Hours (Table) 05/06/20 06:30 Blood Culture - Preliminary Blood No Growth after 24 hours Assessment and Plan Assessment: Generalized abdominal pain secondary to fecal impaction improving now. Colorectal cancer status post recent colostomy bag placement on 04/21/2020 Suspected liver metastatic lesions. History of esophageal cancer Obesity with BMI 35.4 Hypertension Hyperlipidemia History of [place] History of renal transplant in 2008 and prior peritoneal dialysis. Plan: Patient will be continued on IV hydration and stool softeners and laxatives. Continue with antibiotics and general surgery is following. No surgical intervention as per surgery. Follow-up closely and further recommendations based on the clinical course. Time with Patient: Greater than 30
--- NOTE | 2020-05-09 01:03 | P.PN ---
Subjective Progress Note Date: 05/08/20 Principal diagnosis: Constipation Colorectal cancer with recent resection and colostomy bag placement Pt. is a 70-year-old white male status post colectomy related to colorectal cancer. The patient is struggling for the last 2 days with worsening back pain and abdominal pain. Appetite has been nominal but there is no worsening insomnia. No significant nausea, vomiting or diarrhea. Workup in the emergency room was done, coronavirus PCR is pending. The patient is essentially admitted for pain control. And coronavirus workup. 05/07/2020 Patient is currently resting in the bed comfortably. She was first colostomy bag placement about 2 weeks ago. Abdominal pain improved with digital impaction of the ostomy as per nursing staff. Patient is also being continued on antibiotics. Patient has been afebrile. No chest pain or shortness of breath. No cough or sputum production. No fever no chills. Continue stool softeners and advance diet as tolerated. General surgery and ID is on board. 05/08/2020 Patient is currently awake alert and oriented. Patient did have emesis this morning and was placed on NG tube. Abdominal distention is improving. Patient does have output from the colostomy bag. Otherwise laboratory test showed WBC 11.8, hemoglobin 8.6 and platelets 333 Sodium 130 and potassium 5.6 and BUN 49 and creatinine 2.13 Nephrology and general surgery is on board. Renal function is improving from 2.6-2.1 today. Current medications reviewed. Current medications reviewed. Objective - Vital Signs Vital signs: Vital Signs Temp 97.8 F 05/08/20 11:40 Pulse 60 05/08/20 11:40 Resp 16 05/08/20 11:40 BP 97/63 05/08/20 11:40 Pulse Ox 96 05/08/20 11:40 Intake & Output 05/07/20 05/08/20 05/08/20 18:59 06:59 18:59 Intake Total 100 Output Total 550 400 Balance -550 -300 Weight 108.862 kg Intake: Intake, IV Titration 100 Amount metroNIDAZOLE-NS PMX 500 100 mg In Saline 1 100ml.bag @ 100 mls/hr IVPB Q8HR [facility] Rx#:[id number] Output: Urine 400 Emesis 550 Other: Voiding Method Urinal Urinal # Voids 2 - Exam PHYSICAL EXAMINATION: Patient is lying in the bed comfortably, no acute distress, awake alert and oriented.. HEENT: Normocephalic. Neck is supple. Pupils reactive. Nostrils clear. Oral cavity is moist. Ears reveal no drainage. Neck reveals no JVD, carotid bruits, or thyromegaly. CHEST EXAMINATION: Trachea is central. Symmetrical expansion. Lung reed clear to auscultation and percussion. CARDIAC: Normal S1, S2 with no gallops. No murmurs ABDOMEN: Soft.Distended and colostomy bag in place. Bowel sounds normal. No organomegaly. No abdominal bruits. Extremities: reveal no edema. No clubbing or cyanosis Neurologically awake, alert, oriented x3 with well-coordinated movements. No focal deficits noted Skin: No rash or skin lesions. Psychiatric: Coperative. Nonsuicidal Musculoskeletal: No joint swelling or deformity. Normal range of motion. - Labs CBC & Chem 7: 05/08/20 11:55 05/08/20 20:27 Labs: Abnormal Lab Results - Last 24 Hours (Table) 05/08/20 05/08/20 Range/Units 11:55 11:55 WBC 11.8 H (3.8-10.6) k/uL RBC 3.37 L (4.30-5.90) m/uL Hgb 8.6 L (13.0-17.5) gm/dL Hct 29.4 L (39.0-53.0) % MCHC 29.4 L (31.0-37.0) g/dL RDW 20.0 H (11.5-15.5) % Neutrophils # 11.2 H (1.3-7.7) k/uL Lymphocytes # 0.4 L (1.0-4.8) k/uL Sodium 130 L (137-145) mmol/L Potassium 5.6 H (3.5-5.1) mmol/L Carbon Dioxide 19 L (22-30) mmol/L BUN 49 H (9-20) mg/dL Creatinine 2.13 H (0.66-1.25) mg/dL Glucose 135 H (74-99) mg/dL Calcium 8.1 L (8.4-10.2) mg/dL Total Bilirubin 1.4 H (0.2-1.3) mg/dL Total Protein 5.0 L (6.3-8.2) g/dL Albumin 2.3 L (3.5-5.0) g/dL Microbiology - Last 24 Hours (Table) 05/06/20 06:30 Blood Culture - Preliminary Blood No Growth after 48 hours Assessment and Plan Assessment: Generalized abdominal pain secondary to fecal impaction improving now. Acute kidney injury secondary to ATN. Creatinine improved from 2.6-2.2 today. History of renal transplant in 2008 CKD stage III Colorectal cancer status post recent colostomy bag placement on 04/21/2020 Suspected liver metastatic lesions. History of esophageal cancer Obesity with BMI 35.4 Hypertension Hyperlipidemia History of GA History of renal transplant in 2008 and prior peritoneal dialysis. Plan: Patient will be continued on IV hydration and stool softeners and laxatives.Hold diuretics and antacids. Avoid hypotension. Continue with antibiotics and general surgery is following. No surgical intervention as per surgery. Follow-up closely and further recommendations based on the clinical course. Time with Patient: Greater than 30
--- NOTE | 2020-05-09 04:05 | PN ---
PROGRESS NOTE DATE OF SERVICE: 05/08/2020 REASON FOR FOLLOWUP: Abdominal abscess. INTERVAL HISTORY: The patient is currently afebrile. The patient abdominal pain has improved. He did have an NG placed. No chest pain, shortness of breath or cough. Did have output in his colostomy. PHYSICAL EXAMINATION: Blood pressure 97/63 with a pulse of 60, temperature 97.8. He is 96% on room air. General description is an elderly male lying in bed in no distress. RESPIRATORY SYSTEM: Unlabored breathing, clear to auscultation anteriorly. HEART: S1, S2. Regular rate and rhythm. ABDOMEN: Soft. No tenderness. LABS: Hemoglobin 8.6, white count 11.8. BUN of 49 creatinine is 2.13. DIAGNOSTIC IMPRESSION AND PLAN: Patient admitted to the hospital with abdominal pain with recent partial colectomy and some inflammatory changes at the surgical site. The patient is currently covered with Unasyn to continue and monitor clinical course closely. Continue supportive care. MMODL / IJN: [id number] /
[2020-05-09 05:58] LABS: Anisocytosis Moderate; Basophils % (A) 0 %; Eosinophils % (A) 0 %; HCT 27.3 % (39.0-53.0); HGB 8.7 gm/dL (13.0-17.5); Hypochromasia Moderate; Lymphocytes # (A) 0.4 k/uL (1.0-4.8); Lymphocytes % (A) 3 %; MCH 26.7 pg (25.0-35.0); MCHC 31.7 g/dL (31.0-37.0); MCV 84.1 fL (80.0-100.0); Mean Platelet Volume 7.7; Microcytosis Slight; Monocytes # (A) 0.4 k/uL (0-1.0); Monocytes % (A) 3 %; Neutrophils # (A) 11.4 k/uL (1.3-7.7); Neutrophils % (A) 93 %; Platelet Count 282 k/uL (150-450); Poikilocytosis Slight; RBC 3.24 m/uL (4.30-5.90); RDW 20.1 % (11.5-15.5); WBC 12.2 k/uL (3.8-10.6)
[2020-05-09] MEDS: SODIUM CHLORIDE 0.9% 1,000 ML IV SCH ×3 (06:30→16:17)
[2020-05-09] MEDS: predniSONE 5 MG TAB PO SCH ×2 (07:49→21:28)
[2020-05-09] MEDS: ASPIRIN 81 MG PO SCH (07:49)
[2020-05-09] MEDS: allopurinoL 100 MG TAB PO SCH ×2 (07:50→21:28)
[2020-05-09] MEDS: MULTIVITAMINS, THERA 1 EACH TAB PO SCH (07:50)
[2020-05-09] MEDS: DOCUSATE 100 MG CAP PO SCH ×2 (07:50→21:27)
[2020-05-09] MEDS: SODIUM BICARBONATE TAB 650 MG TAB PO SCH ×2 (07:50→21:28)
[2020-05-09] MEDS: amLODIPine 5 MG TAB PO SCH (07:50)
[2020-05-09] MEDS: SERTRALINE 50 MG TAB PO SCH (07:51)
[2020-05-09] MEDS: METOPROLOL TARTRATE 50 MG TAB PO SCH ×2 (07:51→21:28)
[2020-05-09] MEDS: PANTOPRAZOLE 40 MG TABLET PO SCH (07:51)
[2020-05-09] MEDS: ISOSORBIDE MONONITRATE ER 30 MG TAB.ER.24H PO SCH (07:51)
[2020-05-09] MEDS: cycloSPORINE 25 MG CAP PO SCH ×2 (07:51→21:28)
--- NOTE | 2020-05-09 09:57 | P.PN ---
Subjective Progress Note Date: 05/09/20 Principal diagnosis: Rectal cancer Patient doing somewhat better today. His pain is resolved over the weekend. He is not receiving any analgesics. He is more alert than when I saw him on Saturday. He did have an episode of vomiting. Yesterday's abdominal x-rays demonstrate ileus versus small bowel obstruction. He says his bloating is better. He is having a small amount of function through the ostomy. He is not nauseated. He is hungry. He discussed the CAT scan findings with Dr. Escobar this morning. He is depressed after learning about the masses in the liver. White blood cell count remains slightly elevated at 12.2. No fevers. Objective - Vital Signs Vital signs: Vital Signs Temp 97.6 F 05/09/20 05:00 Pulse 81 05/09/20 05:00 Resp 18 05/09/20 05:00 BP 114/66 05/09/20 05:00 Pulse Ox 95 05/09/20 05:00 Intake & Output 05/08/20 05/09/20 05/09/20 18:59 06:59 18:59 Intake Total 100 1570 Output Total 400 1075 Balance -300 495 Intake: Intake, IV Titration 100 1570 Amount Ampicillin-Sulbactam 3 gm 100 In Sodium Chloride 0.9% 100 ml @ 200 mls/hr IVPB Q6HR [facility] Rx#:[id number] Sodium Chloride 0.9% 1, 1370 000 ml @ 130 mls/hr IV . Q7H42M [facility] Rx#:[id number] metroNIDAZOLE-NS PMX 500 100 100 mg In Saline 1 100ml.bag @ 100 mls/hr IVPB Q8HR [facility] Rx#:[id number] Output: Gastric Drainage 400 Urine 400 675 Other: Voiding Method Urinal Urinal Urinal - Exam Abdomen: Soft, nondistended, no appreciable tenderness, ostomy functioning - Labs CBC & Chem 7: 05/09/20 05:42 05/08/20 20:27 Labs: Abnormal Lab Results - Last 24 Hours (Table) 05/08/20 05/08/20 05/08/20 Range/Units 11:55 11:55 14:30 WBC 11.8 H (3.8-10.6) k/uL RBC 3.37 L (4.30-5.90) m/uL Hgb 8.6 L (13.0-17.5) gm/dL Hct 29.4 L (39.0-53.0) % MCHC 29.4 L (31.0-37.0) g/dL RDW 20.0 H (11.5-15.5) % Neutrophils # 11.2 H (1.3-7.7) k/uL Lymphocytes # 0.4 L (1.0-4.8) k/uL Sodium 130 L (137-145) mmol/L Potassium 5.6 H (3.5-5.1) mmol/L Carbon Dioxide 19 L (22-30) mmol/L BUN 49 H (9-20) mg/dL Creatinine 2.13 H (0.66-1.25) mg/dL Glucose 135 H (74-99) mg/dL Calcium 8.1 L (8.4-10.2) mg/dL Total Bilirubin 1.4 H (0.2-1.3) mg/dL Total Protein 5.0 L (6.3-8.2) g/dL Albumin 2.3 L (3.5-5.0) g/dL Urine Protein Trace H (Negative) Urine Ketones Trace H (Negative) Ur Leukocyte Esterase Trace H (Negative) 05/09/20 Range/Units 05:42 WBC 12.2 H (3.8-10.6) k/uL RBC 3.24 L (4.30-5.90) m/uL Hgb 8.7 L (13.0-17.5) gm/dL Hct 27.3 L (39.0-53.0) % MCHC (31.0-37.0) g/dL RDW 20.1 H (11.5-15.5) % Neutrophils # 11.4 H (1.3-7.7) k/uL Lymphocytes # 0.4 L (1.0-4.8) k/uL Sodium (137-145) mmol/L Potassium (3.5-5.1) mmol/L Carbon Dioxide (22-30) mmol/L BUN (9-20) mg/dL Creatinine (0.66-1.25) mg/dL Glucose (74-99) mg/dL Calcium (8.4-10.2) mg/dL Total Bilirubin (0.2-1.3) mg/dL Total Protein (6.3-8.2) g/dL Albumin (3.5-5.0) g/dL Urine Protein (Negative) Urine Ketones (Negative) Ur Leukocyte Esterase (Negative) Microbiology - Last 24 Hours (Table) 05/06/20 06:30 Blood Culture - Preliminary Blood No Growth after 72 hours Assessment and Plan (1) History of rectal cancer Narrative/Plan: Patient's pain has resolved. Unfortunately he has developed what I suspect is an ileus rather than obstruction. Begin full liquid diet. Increase activity. Physical therapy has been consulted. Initially hospice consult was placed however I discussed the case further with Dr. Escobar and the patient. Patient may do better than expected with adjuvant therapy and will postpone hospice evaluation for now. Patient is very anxious to go home however he admits that after he leaves he likely will not return to the hospital despite his symptoms. Would favor further IV antibiotics with gradual dietary advancement. If recurrent nausea or vomiting develops will repeat abdominal films and may require repeat CAT scan. Patient is agreeable. We'll discuss with the patient's significant other. Current Visit: Yes Status: Acute Code(s): Z85.048 - PRSNL HX OF MALIG NEOPLM OF RECTUM, RECTOSIG JUNCT, AND ANUS SNOMED Code(s): 529191683
[2020-05-09 10:11] LABS: African American GFR (CKD) 38.3 (60.0-200.0); Albumin 2.7 g/dL (3.80-4.90); Albumin/Globulin Ratio 1.35 (1.60-3.17); Anion Gap 12.2 mmol/L (4.00-12.00); BUN/Creat Ratio 27.5 Ratio (12.00-20.00); Calcium 8.2 mg/dL (8.7-10.3); Carbon Dioxide 21.8 mmol/L (21.6-31.8); Magnesium 2.1 mg/dL (1.5-2.4); Non-African American GFR(CKD) 33.1 (60.0-200.0); Potassium 4.8 mmol/L (3.5-5.5); Total Bilirubin 0.8 mg/dL (0.3-1.2); Total Protein 4.7 g/dL (6.2-8.2)
--- NOTE | 2020-05-09 10:56 | P.PN ---
Subjective Patient is seen in follow-up for acute allograft dysfunction and kidney transplant management. He pulled out his NG tube last night. He will be st arted on clear diet today. Denies abdominal pain. Has been voiding. No chest pain or shortness of breath. Vital signs are stable. General: The patient appeared well nourished and normally developed. HEENT: Head exam is unremarkable. Neck is without jugular venous distension. LUNGS: Breath sounds decreased. HEART: Rate and Rhythm are regular. ABDOMEN: Soft, nontender. Obese. EXTREMITITES: No edema. Objective - Vital Signs Vital signs: Vital Signs Temp 97.6 F 05/09/20 05:00 Pulse 81 05/09/20 05:00 Resp 18 05/09/20 05:00 BP 114/66 05/09/20 05:00 Pulse Ox 95 05/09/20 05:00 Intake & Output 05/08/20 05/09/20 05/09/20 18:59 06:59 18:59 Intake Total 100 1570 Output Total 400 1075 Balance -300 495 Intake: Intake, IV Titration 100 1570 Amount Ampicillin-Sulbactam 3 gm 100 In Sodium Chloride 0.9% 100 ml @ 200 mls/hr IVPB Q6HR [facility] Rx#:[id number] Sodium Chloride 0.9% 1, 1370 000 ml @ 130 mls/hr IV . Q7H42M [facility] Rx#:[id number] metroNIDAZOLE-NS PMX 500 100 100 mg In Saline 1 100ml.bag @ 100 mls/hr IVPB Q8HR [facility] Rx#:[id number] Output: Gastric Drainage 400 Urine 400 675 Other: Voiding Method Urinal Urinal Urinal - Labs CBC & Chem 7: 05/09/20 05:42 05/09/20 05:42 Labs: Abnormal Lab Results - Last 24 Hours (Table) 05/08/20 05/08/20 05/08/20 Range/Units 11:55 11:55 14:30 WBC 11.8 H (3.8-10.6) k/uL RBC 3.37 L (4.30-5.90) m/uL Hgb 8.6 L (13.0-17.5) gm/dL Hct 29.4 L (39.0-53.0) % MCHC 29.4 L (31.0-37.0) g/dL RDW 20.0 H (11.5-15.5) % Neutrophils # 11.2 H (1.3-7.7) k/uL Lymphocytes # 0.4 L (1.0-4.8) k/uL Sodium 130 L (137-145) mmol/L Potassium 5.6 H (3.5-5.1) mmol/L Carbon Dioxide 19 L (22-30) mmol/L Anion Gap (4.00-12.00) mmol/L BUN 49 H (9-20) mg/dL Creatinine 2.13 H (0.66-1.25) mg/dL Est GFR (CKD-EPI)AfAm (60.0-200.0) Est GFR (CKD-EPI)NonAf (60.0-200.0) BUN/Creatinine Ratio (12.00-20.00) Ratio Glucose 135 H (74-99) mg/dL Calcium 8.1 L (8.4-10.2) mg/dL Total Bilirubin 1.4 H (0.2-1.3) mg/dL Total Protein 5.0 L (6.3-8.2) g/dL Albumin 2.3 L (3.5-5.0) g/dL Albumin/Globulin Ratio (1.60-3.17) g/dL Urine Protein Trace H (Negative) Urine Ketones Trace H (Negative) Ur Leukocyte Esterase Trace H (Negative) 05/09/20 05/09/20 Range/Units 05:42 05:42 WBC 12.2 H (3.8-10.6) k/uL RBC 3.24 L (4.30-5.90) m/uL Hgb 8.7 L (13.0-17.5) gm/dL Hct 27.3 L (39.0-53.0) % MCHC (31.0-37.0) g/dL RDW 20.1 H (11.5-15.5) % Neutrophils # 11.4 H (1.3-7.7) k/uL Lymphocytes # 0.4 L (1.0-4.8) k/uL Sodium (137-145) mmol/L Potassium (3.5-5.1) mmol/L Carbon Dioxide (22-30) mmol/L Anion Gap 12.20 H (4.00-12.00) mmol/L BUN 55.0 H (9-20) mg/dL Creatinine 2.0 H (0.66-1.25) mg/dL Est GFR (CKD-EPI)AfAm 38.3 L (60.0-200.0) Est GFR (CKD-EPI)NonAf 33.1 L (60.0-200.0) BUN/Creatinine Ratio 27.50 H (12.00-20.00) Ratio Glucose 114 H (74-99) mg/dL Calcium 8.2 L (8.4-10.2) mg/dL Total Bilirubin (0.2-1.3) mg/dL Total Protein 4.7 L (6.3-8.2) g/dL Albumin 2.70 L (3.5-5.0) g/dL Albumin/Globulin Ratio 1.35 L (1.60-3.17) g/dL Urine Protein (Negative) Urine Ketones (Negative) Ur Leukocyte Esterase (Negative) Microbiology - Last 24 Hours (Table) 05/06/20 06:30 Blood Culture - Preliminary Blood No Growth after 72 hours Assessment and Plan Plan: Assessment: 1. Acute allograft dysfunction secondary to ATN secondary to contrast-induced acute kidney injury (patient received IV contrast on May 06), hypotension, nonsteroidals, diuretics and hypovolemia. Creatinine peaked at 2.6 - 2.0 today. UA is fairly benign. No hydronephrosis noted on ultrasound. 2. 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 3. Chronic kidney disease stage III A secondary to calcineurin use in a solitary kidney with baseline creatinine near 1.2. 4. Rectal cancer status post abdomino perineal resection on April 21. 5. Constipation. 6. Abdominal wound infection maintained on antibiotics. Infectious disease following. 7. Ileus versus bowel obstruction. Surgery following. s/p NGT. 8. Hypertension with chronic kidney disease. Controlled. 9. Hyperkalemia secondary to acute kidney injury, nonsteroidals. Resolved. 10. Hypovolemic hyponatremia improved with IV hydration. 11. Hypomagnesemia from poor intake and diuretics. Better post replacement. 12. Anemia of chronic kidney disease. Rule out iron deficiency. Plan: Maintain normal saline at 125 mL an hour. Discontinued Toradol. Discontinued hctz. Hold amlodipine for systolic blood pressure less than 120. Follow-up a.m. cyclosporine level. Continue to monitor renal function and urine output closely. Check iron studies. Maintain cyclosporine and prednisone.
[2020-05-09 14:52] LABS: % Iron Saturation 2.68 (15.00-50.00); Ferritin 165.5 ng/mL (22.0-322.0)
--- NOTE | 2020-05-09 15:07 | P.PN ---
Subjective Progress Note Date: 05/09/20 Principal diagnosis: Metastatic rectal cancer The patient is here essentially because of postop complications related to rectal cancer with history of colostomy/colectomy. The patient now has metastatic disease. Had a long discussion he is quite despondent and I initially consult hospice, but after discussing with general surgery, he could live for prolonged with appropriate treatment. Venancio we will keep for another day and will hold hospice pending his decision for treatment. Objective - Vital Signs Vital signs: Vital Signs Temp 97.7 F 05/09/20 12:18 Pulse 63 05/09/20 12:18 Resp 16 05/09/20 12:18 BP 106/65 05/09/20 12:18 Pulse Ox 95 05/09/20 12:18 Intake & Output 05/08/20 05/09/20 05/09/20 18:59 06:59 18:59 Intake Total 100 1570 1240 Output Total 400 1075 Balance -947 020 9340 Intake: Intake, IV Titration 100 1570 1240 Amount Ampicillin-Sulbactam 3 gm 100 In Sodium Chloride 0.9% 100 ml @ 200 mls/hr IVPB Q12H [facility] Rx#:[id number] Ampicillin-Sulbactam 3 gm 100 100 In Sodium Chloride 0.9% 100 ml @ 200 mls/hr IVPB Q6HR [facility] Rx#:[id number] Sodium Chloride 0.9% 1, 1370 1040 000 ml @ 130 mls/hr IV . Q7H42M [facility] Rx#:[id number] metroNIDAZOLE-NS PMX 500 100 100 mg In Saline 1 100ml.bag @ 100 mls/hr IVPB Q8HR [facility] Rx#:[id number] Output: Gastric Drainage 400 Urine 400 675 Other: Voiding Method Urinal Urinal Urinal - Constitutional General appearance: Present: no acute distress - EENT Eyes: Absent: abnormal pupil - Neck Neck: Absent: lymphadenopathy - Respiratory Respiratory: bilateral: diminished - Cardiovascular Rhythm: regular Heart sounds: normal: S1, S2 Abnormal Heart Sounds: Absent: S4 Gallop - Integumentary Integumentary: Absent: cellulitis - Labs CBC & Chem 7: 05/09/20 05:42 05/09/20 05:42 Labs: Abnormal Lab Results - Last 24 Hours (Table) 05/08/20 05/09/20 05/09/20 Range/Units 14:30 05:42 05:42 WBC 12.2 H (3.8-10.6) k/uL RBC 3.24 L (4.30-5.90) m/uL Hgb 8.7 L (13.0-17.5) gm/dL Hct 27.3 L (39.0-53.0) % RDW 20.1 H (11.5-15.5) % Neutrophils # 11.4 H (1.3-7.7) k/uL Lymphocytes # 0.4 L (1.0-4.8) k/uL Anion Gap 12.20 H (4.00-12.00) mmol/L BUN 55.0 H (9.0-27.0) mg/dL Creatinine 2.0 H (0.6-1.5) mg/dL Est GFR (CKD-EPI)AfAm 38.3 L (60.0-200.0) Est GFR (CKD-EPI)NonAf 33.1 L (60.0-200.0) BUN/Creatinine Ratio 27.50 H (12.00-20.00) Ratio Glucose 114 H (70-110) mg/dL Calcium 8.2 L (8.7-10.3) mg/dL Iron (65-175) ug/dL TIBC (228-460) ug/dL % Saturation (15.00-50.00) Total Protein 4.7 L (6.2-8.2) g/dL Albumin 2.70 L (3.80-4.90) g/dL Albumin/Globulin Ratio 1.35 L (1.60-3.17) g/dL Urine Protein Trace H (Negative) Urine Ketones Trace H (Negative) Ur Leukocyte Esterase Trace H (Negative) 05/09/20 Range/Units 05:42 WBC (3.8-10.6) k/uL RBC (4.30-5.90) m/uL Hgb (13.0-17.5) gm/dL Hct (39.0-53.0) % RDW (11.5-15.5) % Neutrophils # (1.3-7.7) k/uL Lymphocytes # (1.0-4.8) k/uL Anion Gap (4.00-12.00) mmol/L BUN (9.0-27.0) mg/dL Creatinine (0.6-1.5) mg/dL Est GFR (CKD-EPI)AfAm (60.0-200.0) Est GFR (CKD-EPI)NonAf (60.0-200.0) BUN/Creatinine Ratio (12.00-20.00) Ratio Glucose (70-110) mg/dL Calcium (8.7-10.3) mg/dL Iron 6 L (65-175) ug/dL TIBC 224 L (228-460) ug/dL % Saturation 2.68 L (15.00-50.00) Total Protein (6.2-8.2) g/dL Albumin (3.80-4.90) g/dL Albumin/Globulin Ratio (1.60-3.17) g/dL Urine Protein (Negative) Urine Ketones (Negative) Ur Leukocyte Esterase (Negative) Microbiology - Last 24 Hours (Table) 05/06/20 06:30 Blood Culture - Preliminary Blood No Growth after 72 hours Assessment and Plan (1) Insomnia Current Visit: Yes Status: Acute Code(s): G47.00 - INSOMNIA, UNSPECIFIED SNOMED Code(s): 556900974 (2) Dehydration Current Visit: Yes Status: Acute Code(s): E86.0 - DEHYDRATION SNOMED Code(s): 26112257 (3) History of rectal cancer Current Visit: Yes Status: Acute Code(s): Z85.048 - PRSNL HX OF MALIG NEOPLM OF RECTUM, RECTOSIG JUNCT, AND ANUS SNOMED Code(s): 211830310 (4) History of renal transplant Current Visit: Yes Status: Acute Code(s): Z94.0 - KIDNEY TRANSPLANT STATUS SNOMED Code(s): 799069912 Plan: . Appreciate surgical input. We will keep for at least one more day and probably consult oncology as an outpatient. Poor prognostic indicator secondary to metastatic disease.. See orders otherwise.
[2020-05-09] MEDS: HYDROcodone/APAP 10-325MG 1 EACH TAB PO PRN (16:16)
[2020-05-09] MEDS: ATORVASTATIN 20 MG TAB PO SCH (21:27)
[2020-05-10] MEDS: AMPICILLIN-SULBACTAM 3 GM in SODIUM CHLORIDE 0.9% 100 ML IVPB SCH ×5 (00:20→23:48)
[2020-05-10] MEDS: metroNIDAZOLE-NS PMX 500 MG in SALINE 1 100ML.BAG IVPB SCH ×2 (00:20→07:46)
--- NOTE | 2020-05-10 01:20 | PN ---
PROGRESS NOTE DATE OF SERVICE: 05/09/2020 REASON FOR FOLLOWUP: Abdominal wound infection. INTERVAL HISTORY: The patient is currently afebrile. He is feeling slightly better. NG has been discontinued. No chest pain, no cough. No worsening abdominal pain or diarrhea. PHYSICAL EXAMINATION: Blood pressure 141/72 with a pulse of 90, temperature 97.5. He is 95% on room air. General description is an elderly male lying in bed in no distress. RESPIRATORY SYSTEM: Unlabored breathing, clear to auscultation anteriorly. HEART: S1, S2. Regular rate and rhythm. ABDOMEN: Soft, no tenderness. LABS: Hemoglobin 8.7, white count 12.2, BUN of 55, creatinine is 2.0. Blood culture has been negative. DIAGNOSTIC IMPRESSION AND PLAN: Patient with recent abdominal surgery with partial colectomy admitted to the hospital with abdominal pain with evidence of some inflammatory changes. The patient is currently covered with Unasyn to continue. Will monitor clinical course closely. Continue supportive care. MMODL / IJN: [id number] /
[2020-05-10] MEDS: SODIUM CHLORIDE 0.9% 1,000 ML IV SCH ×3 (02:33→16:44)
[2020-05-10 05:57] VITALS: RESP 18
[2020-05-10] MEDS: amLODIPine 5 MG TAB PO SCH (07:47)
[2020-05-10] MEDS: PANTOPRAZOLE 40 MG TABLET PO SCH (07:47)
[2020-05-10] MEDS: METOPROLOL TARTRATE 50 MG TAB PO SCH ×2 (07:47→20:59)
[2020-05-10] MEDS: ASPIRIN 81 MG PO SCH (07:47)
[2020-05-10] MEDS: DOCUSATE 100 MG CAP PO SCH ×2 (07:47→20:59)
[2020-05-10] MEDS: predniSONE 5 MG TAB PO SCH ×2 (07:47→21:00)
[2020-05-10] MEDS: allopurinoL 100 MG TAB PO SCH ×2 (07:47→21:00)
[2020-05-10] MEDS: SODIUM BICARBONATE TAB 650 MG TAB PO SCH (07:47)
[2020-05-10] MEDS: SERTRALINE 50 MG TAB PO SCH (07:47)
[2020-05-10] MEDS: ISOSORBIDE MONONITRATE ER 30 MG TAB.ER.24H PO SCH (07:47)
[2020-05-10] MEDS: cycloSPORINE 25 MG CAP PO SCH ×2 (07:47→21:00)
[2020-05-10] MEDS: MULTIVITAMINS, THERA 1 EACH TAB PO SCH (07:47)
[2020-05-10 10:21] LABS: Anion Gap 10.6 mmol/L (4.00-12.00); BUN/Creat Ratio 38.57 Ratio (12.00-20.00); Carbon Dioxide 21.4 mmol/L (21.6-31.8); Magnesium 2.2 mg/dL (1.5-2.4); Non-African American GFR(CKD) 50.9 (60.0-200.0); Potassium 4.6 mmol/L (3.5-5.5)
--- NOTE | 2020-05-10 11:02 | P.PN ---
Subjective Patient is seen in follow-up for acute allograft dysfunction and kidney transplant management. Tolerating full liquid diet. No abdominal pain. Good urine output. Wants to go home. Vital signs are stable. General: The patient appeared well nourished and normally developed. HEENT: Head exam is unremarkable. Neck is without jugular venous distension. LUNGS: Breath sounds decreased. HEART: Rate and Rhythm are regular. ABDOMEN: Soft, nontender. Obese. EXTREMITITES: No edema. Objective - Vital Signs Vital signs: Vital Signs Temp 97.4 F L 05/10/20 05:00 Pulse 60 05/10/20 05:00 Resp 18 05/10/20 05:00 BP 119/67 05/10/20 05:00 Pulse Ox 94 L 05/10/20 05:00 Intake & Output 05/09/20 05/10/20 05/10/20 18:59 06:59 18:59 Intake Total 1540 2560 Output Total 600 Balance 1540 1960 Intake: Intake, IV Titration 1240 2080 Amount Ampicillin-Sulbactam 3 gm 100 In Sodium Chloride 0.9% 100 ml @ 200 mls/hr IVPB Q12H [facility] Rx#:[id number] Ampicillin-Sulbactam 3 gm 100 In Sodium Chloride 0.9% 100 ml @ 200 mls/hr IVPB Q6HR [facility] Rx#:[id number] Sodium Chloride 0.9% 1, 1040 2080 000 ml @ 130 mls/hr IV . Q7H42M [facility] Rx#:[id number] Oral 300 480 Output: Urine 600 Other: Voiding Method Urinal Urinal Urinal # Voids 300 - Labs CBC & Chem 7: 05/09/20 05:42 05/10/20 05:05 Labs: Abnormal Lab Results - Last 24 Hours (Table) 05/09/20 05/10/20 Range/Units 05:42 05:05 Carbon Dioxide 21.4 L (21.6-31.8) mmol/L BUN 54.0 H (9.0-27.0) mg/dL Est GFR (CKD-EPI)AfAm 59.0 L (60.0-200.0) Est GFR (CKD-EPI)NonAf 50.9 L (60.0-200.0) BUN/Creatinine Ratio 38.57 H (12.00-20.00) Ratio Calcium 8.0 L (8.7-10.3) mg/dL Iron 6 L (65-175) ug/dL TIBC 224 L (228-460) ug/dL % Saturation 2.68 L (15.00-50.00) Microbiology - Last 24 Hours (Table) 05/06/20 06:30 Blood Culture - Preliminary Blood No Growth after 96 hours Assessment and Plan Plan: Assessment: 1. Acute allograft dysfunction secondary to ATN secondary to contrast-induced acute kidney injury (patient received IV contrast on May 06), hypotension, nonsteroidals, diuretics and hypovolemia. Creatinine peaked at 2.6 - 1.4 today. UA is fairly benign. No hydronephrosis noted on ultrasound. 2. 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 3. Chronic kidney disease stage III A secondary to calcineurin use in a solitary kidney with baseline creatinine near 1.2. 4. Rectal cancer status post abdominal perineal resection on April 21. 5. Constipation. Improved. 6. Abdominal wound infection maintained on antibiotics. Infectious disease following. 7. Ileus versus bowel obstruction. Surgery following. s/p NGT. 8. Hypertension with chronic kidney disease. Controlled. 9. Hyperkalemia secondary to acute kidney injury, nonsteroidals. Resolved. 10. Hypovolemic hyponatremia improved with IV hydration. 11. Hypomagnesemia from poor intake and diuretics. Better post replacement. 12. Anemia of chronic kidney disease. Severe iron deficiency noted. 13. Metabolic acidosis secondary to acute kidney injury maintained on bicarb. Plan: Decrease normal saline to 50 mL an hour. Discontinued Toradol. Continue to hold hydrochlorothiazide for now. Hold amlodipine for systolic blood pressure less than 120. Follow-up a.m. cyclosporine level. Continue to monitor renal function and urine output closely. IV iron today. Maintain cyclosporine and prednisone. Decrease dose of oral bicarb. Anticipate discharge soon. Follow up outpatient in 1-2 weeks.
[2020-05-10] MEDS ORDERED: SODIUM FERRIC GLUCONAT-SUCROSE 125 MG in SODIUM CHLORIDE 0.9% 100 ML IVPB ONE (11:30)
--- NOTE | 2020-05-10 11:55 | P.PN ---
Subjective Progress Note Date: 05/10/20 Principal diagnosis: Rectal cancer Patient doing better today. He is passing flatus. Denies vomiting. Mild nausea earlier. Still says his pain is absent. He has been ambulating in the room and ambulated in the hallway once. Says his appetite is still poor. He did not eat much for breakfast or dinner last night. He is afebrile. No CBC today. Objective - Vital Signs Vital signs: Vital Signs Temp 97.4 F L 05/10/20 05:00 Pulse 60 05/10/20 05:00 Resp 18 05/10/20 05:00 BP 119/67 05/10/20 05:00 Pulse Ox 94 L 05/10/20 05:00 Intake & Output 05/09/20 05/10/20 05/10/20 18:59 06:59 18:59 Intake Total 1540 2560 Output Total 600 Balance 1540 1960 Intake: Intake, IV Titration 1240 2080 Amount Ampicillin-Sulbactam 3 gm 100 In Sodium Chloride 0.9% 100 ml @ 200 mls/hr IVPB Q12H [facility] Rx#:[id number] Ampicillin-Sulbactam 3 gm 100 In Sodium Chloride 0.9% 100 ml @ 200 mls/hr IVPB Q6HR [facility] Rx#:[id number] Sodium Chloride 0.9% 1, 1040 2080 000 ml @ 50 mls/hr IV . Q20H [facility] Rx#:[id number] Oral 300 480 Output: Urine 600 Other: Voiding Method Urinal Urinal Urinal # Voids 300 4 - Exam Abdomen: Soft, nondistended, ostomy with flatus, nontender - Labs CBC & Chem 7: 05/09/20 05:42 05/10/20 05:05 Labs: Abnormal Lab Results - Last 24 Hours (Table) 05/09/20 05/10/20 Range/Units 05:42 05:05 Carbon Dioxide 21.4 L (21.6-31.8) mmol/L BUN 54.0 H (9.0-27.0) mg/dL Est GFR (CKD-EPI)AfAm 59.0 L (60.0-200.0) Est GFR (CKD-EPI)NonAf 50.9 L (60.0-200.0) BUN/Creatinine Ratio 38.57 H (12.00-20.00) Ratio Calcium 8.0 L (8.7-10.3) mg/dL Iron 6 L (65-175) ug/dL TIBC 224 L (228-460) ug/dL % Saturation 2.68 L (15.00-50.00) Microbiology - Last 24 Hours (Table) 05/06/20 06:30 Blood Culture - Preliminary Blood No Growth after 96 hours Assessment and Plan (1) History of rectal cancer Narrative/Plan: Patient clinically improving. Continue increasing activity. Appreciate physical therapy ambulating patient. Will advance diet to regular. Remove the rest of the mayra. Consults ostomy nurse. Anticipate discharge tomorrow. Current Visit: Yes Status: Acute Code(s): Z85.048 - PRSNL HX OF MALIG NEOPLM OF RECTUM, RECTOSIG JUNCT, AND ANUS SNOMED Code(s): 418468024
[2020-05-10] MEDS: HYDROcodone/APAP 10-325MG 1 EACH TAB PO PRN (11:59)
--- NOTE | 2020-05-10 13:42 | P.PN ---
Subjective Principal diagnosis: Metastatic rectal cancer The patient is here essentially because of postop complications related to rectal cancer with history of colostomy/colectomy. The patient now has metastatic disease. Had a long discussion he is quite despondent and I initially consult hospice, but after discussing with general surgery, he could live for prolonged with appropriate treatment. Venancio we will keep for another day and will hold hospice pending his decision for treatment. Objective - Vital Signs Vital signs: Vital Signs Temp 97.4 F L 05/10/20 05:00 Pulse 60 05/10/20 05:00 Resp 18 05/10/20 05:00 BP 119/67 05/10/20 05:00 Pulse Ox 94 L 05/10/20 05:00 Intake & Output 05/09/20 05/10/20 05/10/20 18:59 06:59 18:59 Intake Total 1540 2560 Output Total 600 Balance 1540 1960 Weight 108.862 kg Intake: Intake, IV Titration 1240 2080 Amount Ampicillin-Sulbactam 3 gm 100 In Sodium Chloride 0.9% 100 ml @ 200 mls/hr IVPB Q12H [facility] Rx#:[id number] Ampicillin-Sulbactam 3 gm 100 In Sodium Chloride 0.9% 100 ml @ 200 mls/hr IVPB Q6HR [facility] Rx#:[id number] Sodium Chloride 0.9% 1, 1040 2080 000 ml @ 50 mls/hr IV . Q20H [facility] Rx#:[id number] Oral 300 480 Output: Urine 600 Other: Voiding Method Urinal Urinal Urinal # Voids 300 4 - Constitutional General appearance: Present: average body habitus - EENT Eyes: Absent: abnormal pupil - Neck Neck: Absent: lymphadenopathy - Respiratory Respiratory: bilateral: CTA - Cardiovascular Rhythm: regular Heart sounds: normal: S1, S2 Abnormal Heart Sounds: Absent: S3 Gallop - Gastrointestinal General gastrointestinal: Present: soft. Absent: tenderness - Integumentary Integumentary: Absent: cellulitis - Labs CBC & Chem 7: 05/09/20 05:42 05/10/20 05:05 Labs: Abnormal Lab Results - Last 24 Hours (Table) 05/09/20 05/10/20 Range/Units 05:42 05:05 Carbon Dioxide 21.4 L (21.6-31.8) mmol/L BUN 54.0 H (9.0-27.0) mg/dL Est GFR (CKD-EPI)AfAm 59.0 L (60.0-200.0) Est GFR (CKD-EPI)NonAf 50.9 L (60.0-200.0) BUN/Creatinine Ratio 38.57 H (12.00-20.00) Ratio Calcium 8.0 L (8.7-10.3) mg/dL Iron 6 L (65-175) ug/dL TIBC 224 L (228-460) ug/dL % Saturation 2.68 L (15.00-50.00) Microbiology - Last 24 Hours (Table) 05/06/20 06:30 Blood Culture - Preliminary Blood No Growth after 96 hours Assessment and Plan (1) Insomnia Current Visit: Yes Status: Acute Code(s): G47.00 - INSOMNIA, UNSPECIFIED SNOMED Code(s): 465372099 (2) Dehydration Current Visit: Yes Status: Acute Code(s): E86.0 - DEHYDRATION SNOMED Code(s): 97811025 (3) History of rectal cancer Current Visit: Yes Status: Acute Code(s): Z85.048 - PRSNL HX OF MALIG NEOPLM OF RECTUM, RECTOSIG JUNCT, AND ANUS SNOMED Code(s): 485544392 (4) History of renal transplant Current Visit: Yes Status: Acute Code(s): Z94.0 - KIDNEY TRANSPLANT STATUS SNOMED Code(s): 885589488 Plan: . Appreciate surgical input. I suspect ileus is improving. Check CBC and CMP in Robert.m. We will withhold hospice, the patient could live quite some time if treatment is instituted
--- NOTE | 2020-05-10 15:12 | XR ---
EXAMINATION TYPE: XR shoulder limited RT DATE OF EXAM: 05/10/2020 CLINICAL HISTORY: Dislocation of right shoulder TECHNIQUE: 2 limited views of the right shoulder are obtained. COMPARISON: Right shoulder radiograph 06/15/2019. FINDINGS: There is dislocation of the right shoulder with overlapping of the humeral head and glenoi d. No fracture seen. Acromioclavicular degenerative change. The visualized ribs are intact and unrema rkable. IMPRESSION: Dislocation of the right shoulder.
[2020-05-10] MEDS: metroNIDAZOLE 500 MG TAB PO SCH (16:44)
[2020-05-10] MEDS: ATORVASTATIN 20 MG TAB PO SCH (20:59)
[2020-05-11] MEDS: HYDROcodone/APAP 10-325MG 1 EACH TAB PO PRN (00:02)
[2020-05-11] MEDS: metroNIDAZOLE 500 MG TAB PO SCH ×2 (00:08→08:31)
--- NOTE | 2020-05-11 02:06 | PN ---
PROGRESS NOTE DATE OF SERVICE: 05/10/2020. REASON FOR FOLLOWUP: Abdominal infection. INTERVAL HISTORY: The patient is currently afebrile. The patient is breathing comfortably. Patient denies having any chest pain or shortness of breath or cough. Abdominal pain is currently controlled. No nausea, vomiting or diarrhea. PHYSICAL EXAMINATION: Blood pressure 130/72 with a pulse of 65, temperature is 97.7. He is 97% on room air. General description is an elderly male lying in bed in no distress. RESPIRATORY SYSTEM: Unlabored breathing, clear to auscultation anteriorly. HEART: S1, S2. Regular rate and rhythm. ABDOMEN: Soft, no tenderness. LABS: BUN 54, creatinine 1.4. DIAGNOSTIC IMPRESSION AND PLAN: Patient with abdominal wound infection in this patient with recent partial colectomy admitted to the hospital with abdominal pain and some inflammatory changes of the perirectal area. The patient is covered with Unasyn to continue. Will recheck his CBC and CRP tomorrow and monitor his clinical course closely. MMODL / IJN: [id number] /
[2020-05-11] MEDS: AMPICILLIN-SULBACTAM 3 GM in SODIUM CHLORIDE 0.9% 100 ML IVPB SCH ×2 (05:11→11:43)
[2020-05-11 06:53] VITALS: BP 129/74; PULSE 65; TEMP 97.4
[2020-05-11 07:15] LABS: Anisocytosis Moderate; Basophils % (A) 0 %; Eosinophils % (A) 1 %; HCT 27.4 % (39.0-53.0); HGB 8.5 gm/dL (13.0-17.5); Hypochromasia Marked; Lymphocytes # (A) 0.9 k/uL (1.0-4.8); Lymphocytes % (A) 11 %; MCH 26.8 pg (25.0-35.0); MCHC 31.1 g/dL (31.0-37.0); MCV 86.1 fL (80.0-100.0); Mean Platelet Volume 7.9; Microcytosis Slight; Monocytes # (A) 0.5 k/uL (0-1.0); Monocytes % (A) 6 %; Neutrophils # (A) 6.2 k/uL (1.3-7.7); Neutrophils % (A) 80 %; Platelet Count 280 k/uL (150-450); RBC 3.18 m/uL (4.30-5.90); RDW 20.6 % (11.5-15.5); WBC 7.8 k/uL (3.8-10.6)
[2020-05-11] MEDS: MULTIVITAMINS, THERA 1 EACH TAB PO SCH ×2 (08:27→08:29)
[2020-05-11] MEDS: SERTRALINE 50 MG TAB PO SCH (08:29)
[2020-05-11] MEDS: DOCUSATE 100 MG CAP PO SCH (08:29)
[2020-05-11] MEDS: predniSONE 5 MG TAB PO SCH (08:29)
[2020-05-11] MEDS: ASPIRIN 81 MG PO SCH (08:30)
[2020-05-11] MEDS: ISOSORBIDE MONONITRATE ER 30 MG TAB.ER.24H PO SCH (08:30)
[2020-05-11] MEDS: METOPROLOL TARTRATE 50 MG TAB PO SCH (08:30)
[2020-05-11] MEDS: cycloSPORINE 25 MG CAP PO SCH (08:30)
[2020-05-11] MEDS: amLODIPine 5 MG TAB PO SCH (08:30)
[2020-05-11] MEDS: allopurinoL 100 MG TAB PO SCH (08:31)
[2020-05-11] MEDS: PANTOPRAZOLE 40 MG TABLET PO SCH (08:31)
[2020-05-11] MEDS: SODIUM CHLORIDE 0.9% 1,000 ML IV SCH (08:37)
--- NOTE | 2020-05-11 08:49 | P.DS ---
Providers Date of admission: 05/06/20 06:55 Attending physician: Jose Antonio Escobar Consults: 05/06/20 06:42 Consult Physician Routine Consulting Provider: Ravi Reece Consult Reason/Comments: known Do you want consulting provider notified?: Yes Consult Physician Urgent Consulting Provider: Davi Marques Consult Reason/Comments: fever Do you want consulting provider notified?: Yes 05/08/20 10:01 Consult Physician Urgent Consulting Provider: Ortiz Sanders Consult Reason/Comments: ANEUDY Do you want consulting provider notified?: Already Contacted Primary care physician: Jose Antonio Escobar - Discharge Diagnosis(es) (1) Insomnia Current Visit: Yes Status: Acute (2) Dehydration Current Visit: Yes Status: Acute (3) History of rectal cancer Current Visit: Yes Status: Acute (4) History of renal transplant Current Visit: Yes Status: Acute Hospital Course: This is a discharge summary 70-year-old white male with history of colostomy and colectomy secondary to rectal cancer. Virtually, he developed ileus and was admitted for this and was found to have metastatic disease to liver. He will consider hospice versus continued treatment. The patient is now tolerating diet with appropriate bowel movement through colostomy. The patient was discharged once cleared by general surgery and follow-up with me in about a week. Patient Condition at Discharge: Fair Plan - Discharge Summary Discharge Rx Participant: No New Discharge Prescriptions: New metroNIDAZOLE [Flagyl] 500 mg PO Q8HR #21 tab Continue Sertraline [Zoloft] 50 mg PO DAILY predniSONE 5 mg PO BID amLODIPine [Norvasc] 5 mg PO DAILY Metoprolol Tartrate [Lopressor] 50 mg PO BID cycloSPORINE [SandIMMUNE] 75 mg PO BID Aspirin [Adult Low Dose Aspirin EC] 81 mg PO DAILY Pantoprazole Sodium [Protonix] 40 mg PO DAILY Isosorbide Mononitrate ER [Imdur] 30 mg PO DAILY Allopurinol [Zyloprim] 200 mg PO BID Hydrochlorothiazide [hydroCHLOROthiazide] 12.5 mg PO DAILY Multivitamins, Thera [Multivitamin (formulary)] 1 tab PO DAILY Acetaminophen [Tylenol] 500 mg PO HS Melatonin 5 mg PO HS Docusate [Colace] 100 mg PO BID #30 capsule HYDROcodone/APAP 10-325MG [Wirtz 10-325] 1 tab PO Q4H PRN PRN Reason: Pain Atorvastatin Calcium [Lipitor] 20 mg PO HS Discharge Medication List Acetaminophen [Tylenol] 500 mg PO HS 04/20/20 [History] Allopurinol [Zyloprim] 200 mg PO BID 04/20/20 [History] Aspirin [Adult Low Dose Aspirin EC] 81 mg PO DAILY 04/20/20 [History] Hydrochlorothiazide [hydroCHLOROthiazide] 12.5 mg PO DAILY 04/20/20 [History] Isosorbide Mononitrate ER [Imdur] 30 mg PO DAILY 04/20/20 [History] Melatonin 5 mg PO HS 04/20/20 [History] Metoprolol Tartrate [Lopressor] 50 mg PO BID 04/20/20 [History] Multivitamins, Thera [Multivitamin (formulary)] 1 tab PO DAILY 04/20/20 [History] Pantoprazole Sodium [Protonix] 40 mg PO DAILY 04/20/20 [History] Sertraline [Zoloft] 50 mg PO DAILY 04/20/20 [History] amLODIPine [Norvasc] 5 mg PO DAILY 04/20/20 [History] cycloSPORINE [SandIMMUNE] 75 mg PO BID 04/20/20 [History] predniSONE 5 mg PO BID 04/20/20 [History] Docusate [Colace] 100 mg PO BID #30 capsule 04/28/20 [Rx] Atorvastatin Calcium [Lipitor] 20 mg PO HS 05/06/20 [History] HYDROcodone/APAP 10-325MG [Wirtz 10-325] 1 tab PO Q4H PRN 05/06/20 [History] metroNIDAZOLE [Flagyl] 500 mg PO Q8HR #21 tab 05/11/20 [Rx] Follow up Appointment(s)/Referral(s): Jose Antonio Escobar MD [Primary Care Provider] - 1 Week [facility], [NON-STAFF] - Discharge Disposition: HOME WITH HOME HEALTH SERVICES
[2020-05-11] MEDS ORDERED: SODIUM BICARBONATE TAB 650 MG TAB PO SCH (09:00)
[2020-05-11 09:58] LABS: African American GFR (CKD) 64.5 (60.0-200.0); Anion Gap 7.3 mmol/L (4.00-12.00); C Reactive Protein 8.1 mg/dL (0.0-0.8); Carbon Dioxide 23.7 mmol/L (21.6-31.8); Magnesium 1.8 mg/dL (1.5-2.4); Non-African American GFR(CKD) 55.7 (60.0-200.0); Potassium 4.5 mmol/L (3.5-5.5)
--- NOTE | 2020-05-11 11:57 | P.PN ---
<Kaitlin Nguyen - Last Filed: 05/11/20 11:57> Subjective Progress Note Date: 05/11/20 Chief complaint: Abdominal pain HISTORY OF PRESENT ILLNESS: Patient lying in bedside chair comfortably. His incisional mayra were removed yesterday. He does report some incisional abdominal pain. But reports that his pain is controlled. And his pain is improved since admission. Denies any nausea or vomiting. He is passing flatus. He is having stool through his ostomy. He is afebrile. WBC 7.8 hemoglobin 8.5. He is tolerating regular diet. Patient is anticipating being discharged later today. PHYSICAL EXAM: VITAL SIGNS: Reviewed. GENERAL: Well-developed in no acute distress. HEENT: No sclera icterus. Extraocular movements grossly intact. Moist buccal mucosa. Head is atraumatic, normocephalic. ABDOMEN: Soft. Nondistended. Nontender. Ostomy with liquidy stool present NEUROLOGIC: Alert and oriented. Cranial nerves II through XII grossly intact. ASSESSMENT: 1. Generalized abdominal pain 2. Abdominal wound infection 3. Ileus 4. Rectal cancer 5. Liver lesions, suspicious for metastases 6. Pre-existing history of esophageal cancer PLAN: -Continue to increase activity -Antibiotics per ID -Follow up with Dr. Reece in 1 week Physician Check Cashier note has been reviewed by physician. Signing provider agrees with the documented findings, assessment, and plan of care. Objective - Vital Signs Vital signs: Vital Signs Temp 97.4 F L 05/11/20 05:00 Pulse 65 05/11/20 05:00 Resp 18 05/11/20 05:00 BP 129/74 05/11/20 05:00 Pulse Ox 95 05/11/20 05:00 Intake & Output 05/10/20 05/11/20 05/11/20 18:59 06:59 18:59 Intake Total 1050 420 Output Total 600 675 Balance 450 -255 Weight 108.862 kg Intake: Intake, IV Titration 800 Amount Sodium Chloride 0.9% 1, 800 000 ml @ 50 mls/hr IV . Q20H [facility] Rx#:[id number] Oral 250 420 Output: Urine 600 675 Other: Voiding Method Urinal Urinal # Voids 4 3 2 - Labs CBC & Chem 7: 05/11/20 06:41 05/11/20 06:41 Labs: Abnormal Lab Results - Last 24 Hours (Table) 05/09/20 05/11/20 05/11/20 Range/Units 05:42 06:41 06:41 RBC 3.18 L (4.30-5.90) m/uL Hgb 8.5 L (13.0-17.5) gm/dL Hct 27.4 L (39.0-53.0) % RDW 20.6 H (11.5-15.5) % Lymphocytes # 0.9 L (1.0-4.8) k/uL Chloride 110 H (96-109) mmol/L BUN 39.0 H (9.0-27.0) mg/dL Est GFR (CKD-EPI)NonAf 55.7 L (60.0-200.0) BUN/Creatinine Ratio 30.00 H (12.00-20.00) Ratio Calcium 8.0 L (8.7-10.3) mg/dL C-Reactive Protein 8.1 H (0.0-0.8) mg/dL Cyclosporine 63 L (100-400) ng/mL Microbiology - Last 24 Hours (Table) 05/06/20 06:30 Blood Culture - Preliminary Blood No Growth after 120 hours <Ravi Reece - Last Filed: 05/11/20 12:27> Subjective Patient doing better. Remains afebrile. Tolerating diet. Slightly better ostomy function. Patient's white blood cell count normal. Agree with plans for discharge. Patient to return with any recurrent symptoms. Follow-up one week. Objective - Vital Signs Vital signs: Vital Signs Temp 97.4 F L 05/11/20 05:00 Pulse 65 05/11/20 05:00 Resp 18 05/11/20 05:00 BP 129/74 05/11/20 05:00 Pulse Ox 95 05/11/20 05:00 Intake & Output 05/10/20 05/11/20 05/11/20 18:59 06:59 18:59 Intake Total 1050 420 Output Total 600 875 Balance 450 -455 Weight 108.862 kg Intake: Intake, IV Titration 800 Amount Sodium Chloride 0.9% 1, 800 000 ml @ 50 mls/hr IV . Q20H [facility] Rx#:[id number] Oral 250 420 Output: Urine 600 875 Other: Voiding Method Urinal Urinal # Voids 4 3 2 - Labs CBC & Chem 7: 05/11/20 06:41 05/11/20 06:41 Labs: Abnormal Lab Results - Last 24 Hours (Table) 05/09/20 05/11/20 05/11/20 Range/Units 05:42 06:41 06:41 RBC 3.18 L (4.30-5.90) m/uL Hgb 8.5 L (13.0-17.5) gm/dL Hct 27.4 L (39.0-53.0) % RDW 20.6 H (11.5-15.5) % Lymphocytes # 0.9 L (1.0-4.8) k/uL Chloride 110 H (96-109) mmol/L BUN 39.0 H (9.0-27.0) mg/dL Est GFR (CKD-EPI)NonAf 55.7 L (60.0-200.0) BUN/Creatinine Ratio 30.00 H (12.00-20.00) Ratio Calcium 8.0 L (8.7-10.3) mg/dL C-Reactive Protein 8.1 H (0.0-0.8) mg/dL Cyclosporine 63 L (100-400) ng/mL Microbiology - Last 24 Hours (Table) 05/06/20 06:30 Blood Culture - Preliminary Blood No Growth after 120 hours Assessment and Plan (1) History of rectal cancer Current Visit: Yes Status: Acute Code(s): Z85.048 - PRSNL HX OF MALIG NEOPLM OF RECTUM, RECTOSIG JUNCT, AND ANUS SNOMED Code(s): 645308950
--- NOTE | 2020-05-11 12:29 | P.PN ---
Subjective Patient is seen in follow-up for acute allograft dysfunction and kidney transplant management. Tolerating regular diet. No abdominal pain. Good urine output. Wants to go home. Renal function improving. Vital signs are stable. General: The patient appeared well nourished and normally developed. HEENT: Head exam is unremarkable. Neck is without jugular venous distension. LUNGS: Breath sounds decreased. HEART: Rate and Rhythm are regular. ABDOMEN: Soft, nontender. Obese. EXTREMITITES: No edema. Objective - Vital Signs Vital signs: Vital Signs Temp 97.4 F L 05/11/20 05:00 Pulse 65 05/11/20 05:00 Resp 18 05/11/20 05:00 BP 129/74 05/11/20 05:00 Pulse Ox 95 05/11/20 05:00 Intake & Output 05/10/20 05/11/20 05/11/20 18:59 06:59 18:59 Intake Total 1050 420 Output Total 600 875 Balance 450 -455 Weight 108.862 kg Intake: Intake, IV Titration 800 Amount Sodium Chloride 0.9% 1, 800 000 ml @ 50 mls/hr IV . Q20H [facility] Rx#:[id number] Oral 250 420 Output: Urine 600 875 Other: Voiding Method Urinal Urinal # Voids 4 3 2 - Labs CBC & Chem 7: 05/11/20 06:41 05/11/20 06:41 Labs: Abnormal Lab Results - Last 24 Hours (Table) 05/09/20 05/11/20 05/11/20 Range/Units 05:42 06:41 06:41 RBC 3.18 L (4.30-5.90) m/uL Hgb 8.5 L (13.0-17.5) gm/dL Hct 27.4 L (39.0-53.0) % RDW 20.6 H (11.5-15.5) % Lymphocytes # 0.9 L (1.0-4.8) k/uL Chloride 110 H (96-109) mmol/L BUN 39.0 H (9.0-27.0) mg/dL Est GFR (CKD-EPI)NonAf 55.7 L (60.0-200.0) BUN/Creatinine Ratio 30.00 H (12.00-20.00) Ratio Calcium 8.0 L (8.7-10.3) mg/dL C-Reactive Protein 8.1 H (0.0-0.8) mg/dL Cyclosporine 63 L (100-400) ng/mL Microbiology - Last 24 Hours (Table) 05/06/20 06:30 Blood Culture - Preliminary Blood No Growth after 120 hours Assessment and Plan Plan: Assessment: 1. Acute allograft dysfunction secondary to ATN secondary to contrast-induced acute kidney injury (patient received IV contrast on May 06), hypotension, nonsteroidals, diuretics and hypovolemia. Creatinine peaked at 2.6 - 1.3 today. UA is fairly benign. No hydronephrosis noted on ultrasound. 2. 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 Cyclosporine level 63. 3. Chronic kidney disease stage III A secondary to calcineurin use in a solitary kidney with baseline creatinine near 1.2. 4. Rectal cancer status post abdominal perineal resection on April 21. 5. Constipation. Improved. 6. Abdominal wound infection maintained on antibiotics. Infectious disease following. 7. Ileus versus bowel obstruction. Surgery following. s/p NGT. 8. Hypertension with chronic kidney disease. Controlled. 9. Hyperkalemia secondary to acute kidney injury, nonsteroidals. Resolved. 10. Hypovolemic hyponatremia improved with IV hydration. 11. Hypomagnesemia from poor intake and diuretics. Better post replacement. 12. Anemia of chronic kidney disease. Severe iron deficiency noted. 13. Metabolic acidosis secondary to acute kidney injury maintained on bicarb. Plan: Hep-Lock IV fluids. Continue to hold hydrochlorothiazide for now. Hold amlodipine for systolic blood pressure less than 120. IV iron today. This will be his second dose. Maintain cyclosporine and prednisone. Anticipate discharge soon. Follow up outpatient in 1-2 weeks. Repeat BMP, magnesium and cyclosporine level 3-4 days postdischarge.
[2020-05-11] MEDS ORDERED: SODIUM FERRIC GLUCONAT-SUCROSE 125 MG in SODIUM CHLORIDE 0.9% 100 ML IVPB ONE (12:45)
--- NOTE | 2020-05-11 15:45 | PN ---
PROGRESS NOTE DATE OF SERVICE: 05/11/2020 REASON FOR FOLLOWUP: Abdominal infection. INTERVAL HISTORY: The patient is currently afebrile. The patient is breathing comfortably. The patient's abdominal pain is currently improved. No nausea, no vomiting. No chest pain, shortness of breath or cough. PHYSICAL EXAMINATION: Blood pressure is 129/74 with a pulse of 65, temperature 97.4. He is 95% on room air. General description is an elderly male lying in bed in no distress. RESPIRATORY SYSTEM: Unlabored breathing. Clear to auscultation anteriorly. HEART: S1, S2. Regular rate and rhythm. ABDOMEN: Soft. No tenderness. LABS: Hemoglobin 8.5, white count 7.9, BUN of 39, creatinine is 1.3. Blood culture negative. DIAGNOSTIC IMPRESSION AND PLAN: Patient with abdominal infection with recent abdominal surgery and some inflammation seen on the CT, but no drainable abscess. The patient clinically responded to the Unasyn. Will consider Augmentin 875 b.i.d. for 10 days on discharge with close outpatient followup. MMODL / IJN: [id number] /
== END 2020-05-11 13:30 | disposition home health service (06) | DRG 388 ==
LOC: EC 05:29 → 4SSUR 06:55 → 6NMEDSUR 08:47 → 5NMEDONC 05-09 15:53
PROVIDERS: ADMIT Family Medicine; ATTEND Family Medicine
PROC: 0D9670Z Drainage of Stomach with Drainage Device, Via Natural or Artificial Opening (ICD-10-PCS; principal; 2020-05-08)
DX: K56.7 Ileus, unspecified (principal); N17.0 Acute kidney failure with tubular necrosis; T86.19 Other complication of kidney transplant; E87.2 Acidosis; E87.1 Hypo-osmolality and hyponatremia; T81.41XA Infection following a procedure, superficial incisional surgical site, initial encounter; L02.211 Cutaneous abscess of abdominal wall; C78.7 Secondary malignant neoplasm of liver and intrahepatic bile duct; Z20.828 Contact with and (suspected) exposure to other viral communicable diseases; I95.9 Hypotension, unspecified; N18.30 Chronic kidney disease, stage 3 unspecified; E66.01 Morbid (severe) obesity due to excess calories; D63.1 Anemia in chronic kidney disease; Z93.3 Colostomy status; K56.41 Fecal impaction; E78.5 Hyperlipidemia, unspecified; M10.9 Gout, unspecified; E86.0 Dehydration; G47.00 Insomnia, unspecified; K21.9 Gastro-esophageal reflux disease without esophagitis; K57.90 Diverticulosis of intestine, part unspecified, without perforation or abscess without bleeding; K58.9 Irritable bowel syndrome, unspecified; T50.8X5A Adverse effect of diagnostic agents, initial encounter; E86.1 Hypovolemia; I12.9 Hypertensive chronic kidney disease with stage 1 through stage 4 chronic kidney disease, or unspecified chronic kidney disease; E87.5 Hyperkalemia; E83.42 Hypomagnesemia; Z68.35 Body mass index [BMI] 35.0-35.9, adult; F43.21 Adjustment disorder with depressed mood; I25.2 Old myocardial infarction; Y83.0 Surgical operation with transplant of whole organ as the cause of abnormal reaction of the patient, or of later complication, without mention of misadventure at the time of the procedure; Z71.3 Dietary counseling and surveillance; Z79.52 Long term (current) use of systemic steroids; Z79.899 Other long term (current) drug therapy; Z79.82 Long term (current) use of aspirin; Z85.01 Personal history of malignant neoplasm of esophagus; Z85.048 Personal history of other malignant neoplasm of rectum, rectosigmoid junction, and anus; Z98.42 Cataract extraction status, left eye; Z98.41 Cataract extraction status, right eye; Z96.1 Presence of intraocular lens; Z92.21 Personal history of antineoplastic chemotherapy; Z92.3 Personal history of irradiation; Z85.828 Personal history of other malignant neoplasm of skin; Z86.010 Personal history of colon polyps; Z87.891 Personal history of nicotine dependence; Z90.49 Acquired absence of other specified parts of digestive tract; Z80.9 Family history of malignant neoplasm, unspecified
CPT/HCPCS: 36415; 71045; 74018; 74019; 74177; 76770; 80048; 80053; 80158; 81001; 81003; 82550; 82728; 83540; 83550; 83605; 83615; 83735; 83880; 84100; 84132; 84145; 84484; 85025; 85027; 85610; 85730; 86140; 87040; 87502; 87635; 93005; 96361; 96365; 96375; 96376; 99285

== ENCOUNTER 2020-07-21 01:37 | Inpatient (IN) | payer MEDICARE ==
[2020-07-21] MEDS ORDERED: SODIUM CHLORIDE 0.9% 1,000 ML IV STA ×2 (01:42→03:32)
--- NOTE | 2020-07-21 01:42 | ED ---
Weakness HPI - General Stated complaint: Weakness Time Seen by Provider: 07/21/20 01:42 Source: RN notes reviewed, old records reviewed Limitations: no limitations - History of Present Illness Initial comments: This is a 70-year-old male DF for evaluation patient resents for not feeling well. Patient's called EMS this patient's been very weak not acting appropriately not doing his normal activities. Patient admits to weakness here in the ER is a mildly poor strain secondary to weakness, patient is only complaint is really weakness she has no complaints of pain complex medical history including colon cancer significant metastasis. Patient denying any recent fevers but he does have diminished oral intake diminished appetite MD Complaint: generalized weakness -: days(s) Location: generalized Severity: severe Severity scale (1-10): 8 Consistency: constant Improves with: none Worsens with: none Context: recent illness, history of similar Associated Symptoms: loss of appetite, nausea/vomiting, shortness of breath - Related Data Home Medications Medication Instructions Recorded Confirmed Acetaminophen [Tylenol] 500 mg PO HS 04/20/20 05/06/20 Allopurinol [Zyloprim] 200 mg PO BID 04/20/20 05/06/20 Aspirin [Adult Low Dose Aspirin EC] 81 mg PO DAILY 04/20/20 05/06/20 Hydrochlorothiazide 12.5 mg PO DAILY 04/20/20 05/06/20 [hydroCHLOROthiazide] Isosorbide Mononitrate ER [Imdur] 30 mg PO DAILY 04/20/20 05/06/20 Melatonin 5 mg PO HS 04/20/20 05/06/20 Metoprolol Tartrate [Lopressor] 50 mg PO BID 04/20/20 05/06/20 Multivitamins, Thera [Multivitamin 1 tab PO DAILY 04/20/20 05/06/20 (formulary)] Pantoprazole Sodium [Protonix] 40 mg PO DAILY 04/20/20 05/06/20 Sertraline [Zoloft] 50 mg PO DAILY 04/20/20 05/06/20 amLODIPine [Norvasc] 5 mg PO DAILY 04/20/20 05/06/20 cycloSPORINE [SandIMMUNE] 75 mg PO BID 04/20/20 05/06/20 predniSONE 5 mg PO BID 04/20/20 05/06/20 Atorvastatin Calcium [Lipitor] 20 mg PO HS 05/06/20 05/06/20 HYDROcodone/APAP 10-325MG [[place] 1 tab PO Q4H PRN 05/06/20 05/06/20 10-325] Previous Rx's Medication Instructions Recorded Docusate [Colace] 100 mg PO BID #30 capsule 04/28/20 Levofloxacin [Levaquin] 500 mg PO DAILY 1 Days #7 tab 05/11/20 metroNIDAZOLE [Flagyl] 500 mg PO Q8HR #21 tab 05/11/20 Allergies Allergy/AdvReac Type Severity Reaction Status Date / Time No Known Allergies Allergy Verified 07/21/20 01:50 Review of Systems ROS Statement: Those systems with pertinent positive or pertinent negative responses have been documented in the HPI. ROS Other: All systems not noted in ROS Statement are negative. Past Medical History Past Medical History: Cancer, Hyperlipidemia, Hypertension, Myocardial Infarction ([place]), Renal Disease Additional Past Medical History / Comment(s): kidney transplant, heart problem, radiation and chemo-last 03/17/20 for colorectal cancer/esophageal cancer, gout, Last Myocardial Infarction Date:: unknown History of Any Multi-Drug Resistant Organisms: None Reported Past Surgical History: Heart Catheterization Additional Past Surgical History / Comment(s): kidney transplant 2008, dialysis fistual x 3/later removed, nicky cataract with implants, colonoscopies, peritoneal dialysis catheter/later removed Past Anesthesia/Blood Transfusion Reactions: Motion Sickness Past Psychological History: No Psychological Hx Reported Smoking Status: Never smoker Past Alcohol Use History: None Reported Additional Past Alcohol Use History / Comment(s): quit smoking cigars 25 yrs ago Past Drug Use History: None Reported - Past Family History Sister(s) Family Medical History: Cancer Father Family Medical History: No Reported History Additional Family Medical History / Comment(s): Father was healthy Mother Family Medical History: No Reported History Additional Family Medical History / Comment(s): Mother was healthy General Exam General appearance: alert, anxious, lethargic, obese Head exam: Present: atraumatic, normocephalic, normal inspection Eye exam: Present: normal appearance, PERRL, EOMI. Absent: scleral icterus, conjunctival injection, periorbital swelling ENT exam: Present: normal exam, mucous membranes dry Neck exam: Present: normal inspection. Absent: tenderness, meningismus, lymphadenopathy Respiratory exam: Present: normal lung sounds bilaterally. Absent: respiratory distress, wheezes, rales, rhonchi, stridor Cardiovascular Exam: Present: regular rate, normal rhythm, normal heart sounds. Absent: systolic murmur, diastolic murmur, rubs, gallop, clicks GI/Abdominal exam: Present: soft, normal bowel sounds. Absent: distended, tenderness, guarding, rebound, rigid Extremities exam: Present: normal inspection, full ROM, normal capillary refill. Absent: tenderness, pedal edema, joint swelling, calf tenderness Back exam: Present: normal inspection Neurological exam: Present: alert, oriented X3, CN II-XII intact Psychiatric exam: Present: normal affect, normal mood Skin exam: Present: warm, dry, intact, normal color. Absent: rash Course Vital Signs 07/21/20 07/21/20 07/21/20 01:49 02:55 03:36 Temperature 98.2 F Pulse Rate 65 75 72 Respiratory 18 18 18 Rate Blood Pressure 96/64 92/52 103/62 O2 Sat by Pulse 100 96 95 Oximetry - Reevaluation(s) Reevaluation #1: 07/21/20 04:05 Medical records reviewed Reevaluation #2: 07/21/20 04:06 Patient feels better with IV hydration here in the ER will continue Reevaluation #3: 07/21/20 04:06 Patient hydrated on possibility of sepsis due to ideal body weight Reevaluation #4: 07/21/20 04:06 Patient informed results and questions answered - Consultations Consultation #1: Spoke with Dr. Escobar who agrees to admit this patient EKG Findings - EKG Comments: EKG Findings:: EKG is sinus rhythm 80 NM 174 QRS 86 QTc 449 Procedures - Sepsis Sepsis Focused Exam #1 Time Sepsis Criteria Met: 04:06 Sepsis Focused Exam Date: 07/21/20 Sepsis Focused Exam Time: 07:00 Sepsis Focused Exam Complete: Yes Vital Signs & RN Notes Reviewed: Yes Capillary Refill: < 2 Seconds: Fingers, Toes Peripheral Pulses: Normal: Radial (R), Radial (L), Posterior Tibialis (R), Posterior Tibialis (L), Dorsalis Pedis (R), Dorsalis Pedis (L) Skin Color: Normal for Patient Respiratory Exam: normal lung sounds Cardiovascular Exam: regular rate Medical Decision Making - Medical Decision Making 70 male DF for evaluation of weakness, [place] rule out sepsis severe dehydration malnutrition. Unknown active source of infection currently. A she'll be admitted for broad-spectrum IV antibiotics and resuscitation - Lab Data Result diagrams: 07/21/20 01:54 07/21/20 01:54 Lab Results 07/21/20 07/21/20 07/21/20 Range/Units 01:54 01:54 01:54 WBC 21.3 H (3.8-10.6) k/uL RBC 4.57 (4.30-5.90) m/uL Hgb 10.0 L (13.0-17.5) gm/dL Hct 34.5 L (39.0-53.0) % MCV 75.6 L (80.0-100.0) fL MCH 21.9 L (25.0-35.0) pg MCHC 29.0 L (31.0-37.0) g/dL RDW 20.0 H (11.5-15.5) % Plt Count 453 H (150-450) k/uL MPV 7.4 Neutrophils % 86 % Lymphocytes % 6 % Monocytes % 5 % Eosinophils % 1 % Basophils % 0 % Neutrophils # 18.4 H (1.3-7.7) k/uL Lymphocytes # 1.3 (1.0-4.8) k/uL Monocytes # 1.1 H (0-1.0) k/uL Eosinophils # 0.1 (0-0.7) k/uL Basophils # 0.0 (0-0.2) k/uL Hypochromasia Marked Anisocytosis Moderate Microcytosis Moderate PT 12.5 H (9.0-12.0) sec INR 1.2 H (<1.2) APTT 25.8 (22.0-30.0) sec Sodium 128 L (137-145) mmol/L Potassium 5.1 (3.5-5.1) mmol/L Chloride 97 L (98-107) mmol/L Carbon Dioxide 17 L (22-30) mmol/L Anion Gap 14 mmol/L BUN 69 H (9-20) mg/dL Creatinine 2.60 H (0.66-1.25) mg/dL Est GFR (CKD-EPI)AfAm 28 (>60 ml/min/1.73 sqM) Est GFR (CKD-EPI)NonAf 24 (>60 ml/min/1.73 sqM) Glucose 93 (74-99) mg/dL Plasma Lactic Acid Amando (0.7-2.0) mmol/L Calcium 8.6 (8.4-10.2) mg/dL Phosphorus 6.4 H (2.5-4.5) mg/dL Magnesium 1.9 (1.6-2.3) mg/dL Total Bilirubin 3.8 H (0.2-1.3) mg/dL AST 277 H (17-59) U/L ALT 87 H (4-49) U/L Alkaline Phosphatase 941 H (38-126) U/L Creatine Kinase 81 (55-170) U/L Troponin I (0.000-0.034) ng/mL NT-Pro-B Natriuret Pep pg/mL Total Protein 5.8 L (6.3-8.2) g/dL Albumin 2.5 L (3.5-5.0) g/dL TSH 3.470 (0.465-4.680) mIU/L Coronavirus (PCR) (Not Detectd) 07/21/20 07/21/20 07/21/20 Range/Units 01:54 01:54 01:54 WBC (3.8-10.6) k/uL RBC (4.30-5.90) m/uL Hgb (13.0-17.5) gm/dL Hct (39.0-53.0) % MCV (80.0-100.0) fL MCH (25.0-35.0) pg MCHC (31.0-37.0) g/dL RDW (11.5-15.5) % Plt Count (150-450) k/uL MPV Neutrophils % % Lymphocytes % % Monocytes % % Eosinophils % % Basophils % % Neutrophils # (1.3-7.7) k/uL Lymphocytes # (1.0-4.8) k/uL Monocytes # (0-1.0) k/uL Eosinophils # (0-0.7) k/uL Basophils # (0-0.2) k/uL Hypochromasia Anisocytosis Microcytosis PT (9.0-12.0) sec INR (<1.2) APTT (22.0-30.0) sec Sodium (137-145) mmol/L Potassium (3.5-5.1) mmol/L Chloride (98-107) mmol/L Carbon Dioxide (22-30) mmol/L Anion Gap mmol/L BUN (9-20) mg/dL Creatinine (0.66-1.25) mg/dL Est GFR (CKD-EPI)AfAm (>60 ml/min/1.73 sqM) Est GFR (CKD-EPI)NonAf (>60 ml/min/1.73 sqM) Glucose (74-99) mg/dL Plasma Lactic Acid Amando 4.2 H* (0.7-2.0) mmol/L Calcium (8.4-10.2) mg/dL Phosphorus (2.5-4.5) mg/dL Magnesium (1.6-2.3) mg/dL Total Bilirubin (0.2-1.3) mg/dL AST (17-59) U/L ALT (4-49) U/L Alkaline Phosphatase (38-126) U/L Creatine Kinase (55-170) U/L Troponin I <0.012 (0.000-0.034) ng/mL NT-Pro-B Natriuret Pep 591 pg/mL Total Protein (6.3-8.2) g/dL Albumin (3.5-5.0) g/dL TSH (0.465-4.680) mIU/L Coronavirus (PCR) (Not Detectd) 07/21/20 Range/Units 03:21 WBC (3.8-10.6) k/uL RBC (4.30-5.90) m/uL Hgb (13.0-17.5) gm/dL Hct (39.0-53.0) % MCV (80.0-100.0) fL MCH (25.0-35.0) pg MCHC (31.0-37.0) g/dL RDW (11.5-15.5) % Plt Count (150-450) k/uL MPV Neutrophils % % Lymphocytes % % Monocytes % % Eosinophils % % Basophils % % Neutrophils # (1.3-7.7) k/uL Lymphocytes # (1.0-4.8) k/uL Monocytes # (0-1.0) k/uL Eosinophils # (0-0.7) k/uL Basophils # (0-0.2) k/uL Hypochromasia Anisocytosis Microcytosis PT (9.0-12.0) sec INR (<1.2) APTT (22.0-30.0) sec Sodium (137-145) mmol/L Potassium (3.5-5.1) mmol/L Chloride (98-107) mmol/L Carbon Dioxide (22-30) mmol/L Anion Gap mmol/L BUN (9-20) mg/dL Creatinine (0.66-1.25) mg/dL Est GFR (CKD-EPI)AfAm (>60 ml/min/1.73 sqM) Est GFR (CKD-EPI)NonAf (>60 ml/min/1.73 sqM) Glucose (74-99) mg/dL Plasma Lactic Acid [place] (0.7-2.0) mmol/L Calcium (8.4-10.2) mg/dL Phosphorus (2.5-4.5) mg/dL Magnesium (1.6-2.3) mg/dL Total Bilirubin (0.2-1.3) mg/dL AST (17-59) U/L ALT (4-49) U/L Alkaline Phosphatase (38-126) U/L Creatine Kinase (55-170) U/L Troponin I (0.000-0.034) ng/mL NT-Pro-B Natriuret Pep pg/mL Total Protein (6.3-8.2) g/dL Albumin (3.5-5.0) g/dL TSH (0.465-4.680) mIU/L Coronavirus (PCR) Not Detected (Not Detectd) - Radiology Data Radiology results: report reviewed (Chest x-rays negative for acute disease), image reviewed Disposition Clinical Impression: Leukocytosis, Liver metastases, Dehydration, Hyponatremia, Lactic acidosis Disposition: ADMITTED IP TO THIS HOSP Condition: Fair Is patient prescribed a controlled substance at d/c from ED?: No Referrals: Jose Antonio Escobar MD [Primary Care Provider] - 1-2 days
[2020-07-21 02:12] LABS: Anisocytosis Moderate; Basophils % (A) 0 %; Eosinophils # (A) 0.1 k/uL (0-0.7); Eosinophils % (A) 1 %; HCT 34.5 % (39.0-53.0); Hypochromasia Marked; Lymphocytes # (A) 1.3 k/uL (1.0-4.8); Lymphocytes % (A) 6 %; MCH 21.9 pg (25.0-35.0); MCV 75.6 fL (80.0-100.0); Mean Platelet Volume 7.4; Microcytosis Moderate; Monocytes # (A) 1.1 k/uL (0-1.0); Monocytes % (A) 5 %; Neutrophils # (A) 18.4 k/uL (1.3-7.7); Neutrophils % (A) 86 %; Platelet Count 453 k/uL (150-450); RBC 4.57 m/uL (4.30-5.90); WBC 21.3 k/uL (3.8-10.6)
--- NOTE | 2020-07-21 02:19 | XR ---
EXAM: XR Chest, 2 Views CLINICAL HISTORY: Weakness. TECHNIQUE: Frontal and lateral views of the chest. COMPARISON: May 08, 2020 FINDINGS: Lungs: Unremarkable. No infiltration, atelectasis or mass density. Pleural space: Unremarkable. No pneumothorax. No pleural fluid. Heart: The heart is moderately enlarged. Mediastinum: Unremarkable. Bones/joints: Unremarkable. No acute abnormalities. IMPRESSION: No acute findings in the chest. Cardiomegaly.
[2020-07-21 02:36] LABS: INR 1.2 (<1.2); Partial Thromboplastin Time 25.8 sec (22.0-30.0); Prothrombin Time 12.5 sec (9.0-12.0)
[2020-07-21 02:41] LABS: Albumin 2.5 g/dL (3.5-5.0); Calcium 8.6 mg/dL (8.4-10.2); Magnesium 1.9 mg/dL (1.6-2.3); Phosphorus 6.4 mg/dL (2.5-4.5); Potassium 5.1 mmol/L (3.5-5.1); Total Bilirubin 3.8 mg/dL (0.2-1.3); Total Protein 5.8 g/dL (6.3-8.2)
[2020-07-21] MEDS ORDERED: AMPICILLIN-SULBACTAM 3 GM in SODIUM CHLORIDE 0.9% 100 ML IVPB STA (03:06)
[2020-07-21] MEDS ORDERED: PIPERACILLIN-TAZOBACTAM 3.375 GM in SODIUM CHLORIDE 0.9% 100 ML IVPB STA (04:03)
--- NOTE | 2020-07-21 04:11 | CT ---
EXAM: CT Abdomen and Pelvis Without Intravenous Contrast CLINICAL HISTORY: Pain. TECHNIQUE: Axial computed tomography images of the abdomen and pelvis without intravenous contrast. CTDI is 21.5 mGy and DLP is 1344.2 mGy-cm. This CT exam was performed using one or more of the following dose reduction techniques: automated exposure control, adjustment of the mA and/or kV according to patient size, and/or use of iterative reconstruction technique. COMPARISON: No relevant prior studies available. FINDINGS: Lung bases: Unremarkable. No mass. No consolidation. Heart: Cardiomegaly. Small left pleural effusion. ABDOMEN: Liver: The contour of the liver is irregular, suggesting cirrhosis. The liver parenchyma is also very heterogeneous and likely contains numerous masses which may represent metastases. The evaluation is somewhat limited without IV contrast; however, in the appearance of narrowed windows likely represent marked progression since May 06, 2020. Gallbladder and bile ducts: Unremarkable. No calcified stones. No ductal dilation. Pancreas: Unremarkable. No ductal dilation. Spleen: Splenomegaly with the spleen measuring approximate 15 cm in length. Adrenals: Unremarkable. No mass. Kidneys and ureters: Markedly atrophic kidneys containing multiple large calcifications. No hydronephrosis or perinephric fluid. Transplanted kidney in the right pelvis. 2 mm nonobstructing calculus in the transplanted kidney. Stomach and bowel: Left-sided colostomy. No evidence of bowel obstruction. No mucosal thickening. PELVIS: Appendix: No findings to suggest acute appendicitis. Bladder: Unremarkable. No stones. Reproductive: Unremarkable as visualized. Subperitoneal space: Extensive perirectal and presacral infiltration/edema. ABDOMEN and PELVIS: Intraperitoneal space: Small amount of ascites. No free air. Bones/joints: No acute fracture. No dislocation. Soft tissues: See above. Vasculature: Unremarkable. No abdominal aortic aneurysm. Lymph nodes: Unremarkable. No enlarged lymph nodes. IMPRESSION: Very nodular heterogeneous appearance to the liver likely representing liver metastases. No IV contrast was given; however, the appearance appears markedly progressive since May 06, 2020. Splenomegaly. Small amount of ascites. Left colostomy with extensive abnormal infiltration in the perirectal and presacral fat.
[2020-07-21] MEDS: SODIUM CHLORIDE 0.9% 500 ML 500 ML IV SCH ×2 (04:36→08:31)
[2020-07-21] MEDS: SODIUM CHLORIDE 0.9% 1,000 ML IV SCH ×3 (04:36→19:51)
[2020-07-21] MEDS ORDERED: HYDROcodone/APAP 10-325MG 1 EACH TAB PO PRN (08:15)
[2020-07-21] MEDS ORDERED: HYDROmorphone 1 MG/ML 1 ML SYRINGE IVP PRN (08:18)
--- NOTE | 2020-07-21 08:18 | P.HPIM ---
History of Present Illness H&P Date: 07/21/20 Chief Complaint: Weakness This is a history and physical on a 70-year-old white male with metastatic rectal cancer with history of colostomy the last week has been bedridden. He states he's been eating properly and is had a roommate help take care of him for quite some time, support has been nominal and because of his weakness was appropriate admitted and found to have renal azotemia. The patient is now admitted for dehydration but overall prognosis is poor secondary to history of renal transplant and metastatic rectal cancer. The patient states appetite is nominal. But he has significant abdominal pain. Past Medical History Past Medical History: Cancer, Hyperlipidemia, Hypertension, Myocardial Infarction ([place]), Renal Disease Additional Past Medical History / Comment(s): kidney transplant, heart problem, radiation and chemo-last 03/17/20 for colorectal cancer/esophageal cancer, gout, Last Myocardial Infarction Date:: unknown History of Any Multi-Drug Resistant Organisms: None Reported Past Surgical History: Heart Catheterization Additional Past Surgical History / Comment(s): kidney transplant 2008, dialysis fistual x 3/later removed, nicky cataract with implants, colonoscopies, peritoneal dialysis catheter/later removed Past Anesthesia/Blood Transfusion Reactions: Motion Sickness Past Psychological History: No Psychological Hx Reported Additional Psychological History / Comment(s): Pt resides with his spouse. He has [facility] home care. He normally is independent and can drive. Smoking Status: Never smoker Past Alcohol Use History: None Reported Additional Past Alcohol Use History / Comment(s): quit smoking cigars 25 yrs ago Past Drug Use History: None Reported - Past Family History Sister(s) Family Medical History: Cancer Father Family Medical History: No Reported History Additional Family Medical History / Comment(s): Father was healthy Mother Family Medical History: No Reported History Additional Family Medical History / Comment(s): Mother was healthy Medications and Allergies Home Medications Medication Instructions Recorded Confirmed Type Acetaminophen [Tylenol] 500 mg PO HS 04/20/20 07/21/20 History Allopurinol [Zyloprim] 200 mg PO DAILY 04/20/20 07/21/20 History Aspirin [Adult Low Dose Aspirin EC] 81 mg PO DAILY 04/20/20 07/21/20 History Hydrochlorothiazide 12.5 mg PO DAILY 04/20/20 07/21/20 History [hydroCHLOROthiazide] Isosorbide Mononitrate ER [Imdur] 30 mg PO DAILY 04/20/20 07/21/20 History Melatonin 5 mg PO HS 04/20/20 07/21/20 History Metoprolol Tartrate [Lopressor] 50 mg PO BID 04/20/20 07/21/20 History Multivitamins, Thera [Multivitamin 1 tab PO DAILY 04/20/20 07/21/20 History (formulary)] Pantoprazole Sodium [Protonix] 40 mg PO DAILY 04/20/20 07/21/20 History Sertraline [Zoloft] 50 mg PO DAILY 04/20/20 07/21/20 History amLODIPine [Norvasc] 5 mg PO DAILY 04/20/20 07/21/20 History cycloSPORINE [SandIMMUNE] 75 mg PO BID 04/20/20 07/21/20 History predniSONE 5 mg PO BID 04/20/20 07/21/20 History Docusate [Colace] 100 mg PO BID #30 capsule 04/28/20 07/21/20 Rx Atorvastatin Calcium [Lipitor] 20 mg PO HS 05/06/20 07/21/20 History HYDROcodone/APAP 10-325MG [[place] 1 tab PO Q4H PRN 05/06/20 07/21/20 History 10-325] Allergies Allergy/AdvReac Type Severity Reaction Status Date / Time No Known Allergies Allergy Verified 07/21/20 07:58 Physical Exam Vitals: Vital Signs Temp Pulse Pulse Resp BP BP Pulse Ox 07/21/20 04:42 77 20 108/59 95 07/21/20 04:39 98.2 F 77 18 110/69 95 07/21/20 03:36 72 18 103/62 95 07/21/20 02:55 75 18 92/52 96 07/21/20 01:49 98.2 F 65 18 96/64 100 Intake and Output 07/20/20 07/21/20 07/21/20 22:59 06:59 14:59 Output Total 100 Balance -100 Output: Urine 100 Other: # Voids 0 1 Weight 158.757 kg - Constitutional General appearance: no acute distress - EENT Eyes: EOMI - Neck Neck: no lymphadenopathy - Respiratory Respiratory: bilateral: CTA - Cardiovascular Rhythm: regular Heart sounds: normal: S1, S2 Abnormal Heart Sounds: no S3 Gallop - Gastrointestinal General gastrointestinal: soft, no tenderness - Integumentary Integumentary: no cellulitis Results CBC & Chem 7: 07/21/20 01:54 07/21/20 01:54 Labs: Abnormal Lab Results - Last 24 Hours (Table) 07/21/20 07/21/20 07/21/20 Range/Units 01:54 01:54 01:54 WBC 21.3 H (3.8-10.6) k/uL Hgb 10.0 L (13.0-17.5) gm/dL Hct 34.5 L (39.0-53.0) % MCV 75.6 L (80.0-100.0) fL MCH 21.9 L (25.0-35.0) pg MCHC 29.0 L (31.0-37.0) g/dL RDW 20.0 H (11.5-15.5) % Plt Count 453 H (150-450) k/uL Neutrophils # 18.4 H (1.3-7.7) k/uL Monocytes # 1.1 H (0-1.0) k/uL PT 12.5 H (9.0-12.0) sec INR 1.2 H (<1.2) Sodium 128 L (137-145) mmol/L Chloride 97 L (98-107) mmol/L Carbon Dioxide 17 L (22-30) mmol/L BUN 69 H (9-20) mg/dL Creatinine 2.60 H (0.66-1.25) mg/dL Plasma Lactic Acid Amando (0.7-2.0) mmol/L Phosphorus 6.4 H (2.5-4.5) mg/dL Total Bilirubin 3.8 H (0.2-1.3) mg/dL AST 277 H (17-59) U/L ALT 87 H (4-49) U/L Alkaline Phosphatase 941 H (38-126) U/L Total Protein 5.8 L (6.3-8.2) g/dL Albumin 2.5 L (3.5-5.0) g/dL 07/21/20 Range/Units 01:54 WBC (3.8-10.6) k/uL Hgb (13.0-17.5) gm/dL Hct (39.0-53.0) % MCV (80.0-100.0) fL MCH (25.0-35.0) pg MCHC (31.0-37.0) g/dL RDW (11.5-15.5) % Plt Count (150-450) k/uL Neutrophils # (1.3-7.7) k/uL Monocytes # (0-1.0) k/uL PT (9.0-12.0) sec INR (<1.2) Sodium (137-145) mmol/L Chloride (98-107) mmol/L Carbon Dioxide (22-30) mmol/L BUN (9-20) mg/dL Creatinine (0.66-1.25) mg/dL Plasma Lactic Acid Amando 4.2 H* (0.7-2.0) mmol/L Phosphorus (2.5-4.5) mg/dL Total Bilirubin (0.2-1.3) mg/dL AST (17-59) U/L ALT (4-49) U/L Alkaline Phosphatase (38-126) U/L Total Protein (6.3-8.2) g/dL Albumin (3.5-5.0) g/dL Thrombosis Risk Factor Assmnt - Choose All That Apply Any of the Below Risk Factors Present?: No Other Risk Factors: Yes Each Risk Factor Represents 2 Points: Age 61-74 years Other congenital or acquired thrombophilia - If yes, enter type in comment: No Thrombosis Risk Factor Assessment Total Risk Factor Score: 2 Thrombosis Risk Factor Assessment Level: Low Risk Assessment and Plan (1) Dehydration Current Visit: Yes Status: Acute Code(s): E86.0 - DEHYDRATION SNOMED Code (s): 35745409 (2) Lactic acidosis Current Visit: Yes Status: Acute Code(s): E87.2 - ACIDOSIS SNOMED Code(s): 69929200 (3) Leukocytosis Current Visit: Yes Status: Acute Code(s): D72.829 - ELEVATED WHITE BLOOD CELL COUNT, UNSPECIFIED SNOMED Code(s): 466302857 (4) Liver metastases Current Visit: Yes Status: Acute Code(s): C78.7 - SECONDARY MALIG NEOPLASM OF LIVER AND INTRAHEPATIC BILE DUCT SNOMED Code(s): 28503838 (5) Colostomy status Current Visit: No Status: Acute Code(s): Z93.3 - COLOSTOMY STATUS SNOMED Code(s): 204754466 (6) History of rectal cancer Current Visit: No Status: Acute Code(s): Z85.048 - PRSNL HX OF MALIG NEOPLM OF RECTUM, RECTOSIG JUNCT, AND ANUS SNOMED Code(s): 864470455 (7) History of renal transplant Current Visit: No Status: Acute Code(s): Z94.0 - KIDNEY TRANSPLANT STATUS SNOMED Code(s): 941823708 Plan: We'll go ahead and consult nephrology. Check CBC and CMP in a.m. Reconcile home medications. Gnosis is overall poor given his metastatic disease. Pain control as appropriately necessary. Time with Patient: Greater than 30
[2020-07-21] MEDS: ASPIRIN 81 MG PO SCH (08:52)
[2020-07-21] MEDS: MULTIVITAMINS, THERA 1 EACH TAB PO SCH (08:52)
[2020-07-21] MEDS: SERTRALINE 50 MG TAB PO SCH (08:52)
[2020-07-21] MEDS: DOCUSATE 100 MG CAP PO SCH ×2 (08:52→21:06)
[2020-07-21] MEDS: allopurinoL 100 MG TAB PO SCH (08:52)
[2020-07-21] MEDS: PANTOPRAZOLE 40 MG/10 ML VIAL IV SCH (08:53)
[2020-07-21] MEDS: ISOSORBIDE MONONITRATE ER 30 MG TAB.ER.24H PO SCH (08:53)
[2020-07-21] MEDS ORDERED: ENOXAPARIN 40 MG/0.4 ML SYRINGE SQ SCH (09:00)
[2020-07-21] MEDS: amLODIPine 5 MG TAB PO SCH (10:38)
[2020-07-21] MEDS: METOPROLOL TARTRATE 50 MG TAB PO SCH ×2 (10:39→21:06)
[2020-07-21] MEDS: cycloSPORINE 25 MG CAP PO SCH ×2 (11:03→21:06)
[2020-07-21] MEDS: predniSONE 5 MG TAB PO SCH ×2 (11:03→21:06)
[2020-07-21 11:06] VITALS: BMI 53.1
--- NOTE | 2020-07-21 11:08 | P.NPCON ---
History of Present Illness - Reason for Consult acute renal failure - History of Present Illness Reason for consultation: Acute allograft dysfunction any depressed and management History of present illness: Neck slight patient is a 70-year-old male seen in renal consultation for acute allograft dysfunction and ear for asthma management. Patient received donor renal allograft in 2008 and is yoselyn ntained on cyclosporine and prednisone at home. Patient presented to hospital due to generalized weakness. Patient states he collapsed on the floor and was unable to get up. He denies losing any consciousness. His oral intake has been poor. Patient states he has been waiting but in small amounts. No hematuria. No edema. No vomiting or diarrhea. Patient has chronic kidney disease stage III with baseline creatinine in the range of 1-1.2. It was elevated at 2.6 on admission. Lactic acid was also high at 4.2 and subsequently improved to 1.7 with IV hydration. He is currently maintained on normal saline at 130 mL an hour. He did receive 1.5 L bolus of normal saline in the ER. He denies use of nonsteroidals. Blood pressures also been on the lower side in the systolic 90s to low 100s. CT of the abdomen and pelvis revealed nodular heterogeneous appearance of the liver. No acute findings noted on chest x-ray. Vital signs are stable. General: The patient appeared well nourished and normally developed. HEENT: Head exam is unremarkable. Neck is without jugular venous distension. LUNGS: Breath sounds decreased. HEART: Rate and Rhythm are regular. ABDOMEN: Soft, nontender. EXTREMITITES: No edema. Past Medical History Past Medical History: Cancer, Hyperlipidemia, Hypertension, Myocardial Infarction ([place]), Renal Disease Additional Past Medical History / Comment(s): kidney transplant, heart problem, radiation and chemo-last 03/17/20 for colorectal cancer/esophageal cancer, gout, Last Myocardial Infarction Date:: unknown History of Any Multi-Drug Resistant Organisms: None Reported Past Surgical History: Heart Catheterization Additional Past Surgical History / Comment(s): kidney transplant 2009, dialysis fistual x 3/later removed, nicky cataract with implants, colonoscopies, peritoneal dialysis catheter/later removed Past Anesthesia/Blood Transfusion Reactions: Motion Sickness Past Psychological History: No Psychological Hx Reported Additional Psychological History / Comment(s): Pt resides with his spouse. He has [facility] home care. He normally is independent and can drive. Smoking Status: Never smoker Past Alcohol Use History: None Reported Additional Past Alcohol Use History / Comment(s): quit smoking cigars 25 yrs ago Past Drug Use History: None Reported - Past Family History Sister(s) Family Medical History: Cancer Father Family Medical History: No Reported History Additional Family Medical History / Comment(s): Father was healthy Mother Family Medical History: No Reported History Additional Family Medical History / Comment(s): Mother was healthy Medications and Allergies Home Medications Medication Instructions Recorded Confirmed Type Acetaminophen [Tylenol] 500 mg PO HS 04/20/20 07/21/20 History Allopurinol [Zyloprim] 200 mg PO DAILY 04/20/20 07/21/20 History Aspirin [Adult Low Dose Aspirin EC] 81 mg PO DAILY 04/20/20 07/21/20 History Hydrochlorothiazide 12.5 mg PO DAILY 04/20/20 07/21/20 History [hydroCHLOROthiazide] Isosorbide Mononitrate ER [Imdur] 30 mg PO DAILY 04/20/20 07/21/20 History Melatonin 5 mg PO HS 04/20/20 07/21/20 History Metoprolol Tartrate [Lopressor] 50 mg PO BID 04/20/20 07/21/20 History Multivitamins, Thera [Multivitamin 1 tab PO DAILY 04/20/20 07/21/20 History (formulary)] Pantoprazole Sodium [Protonix] 40 mg PO DAILY 04/20/20 07/21/20 History Sertraline [Zoloft] 50 mg PO DAILY 04/20/20 07/21/20 History amLODIPine [Norvasc] 5 mg PO DAILY 04/20/20 07/21/20 History cycloSPORINE [SandIMMUNE] 75 mg PO BID 04/20/20 07/21/20 History predniSONE 5 mg PO BID 04/20/20 07/21/20 History Docusate [Colace] 100 mg PO BID #30 capsule 04/28/20 07/21/20 Rx Atorvastatin Calcium [Lipitor] 20 mg PO HS 05/06/20 07/21/20 History HYDROcodone/APAP 10-325MG [[place] 1 tab PO Q4H PRN 05/06/20 07/21/20 History 10-325] Allergies Allergy/AdvReac Type Severity Reaction Status Date / Time No Known Allergies Allergy Verified 07/21/20 07:58 Physical Exam Vitals: Vital Signs Temp Pulse Pulse Resp BP BP Pulse Ox 07/21/20 08:00 97.7 F 61 18 93/56 95 07/21/20 04:42 77 20 108/59 95 07/21/20 04:39 98.2 F 77 18 110/69 95 07/21/20 03:36 72 18 103/62 95 07/21/20 02:55 75 18 92/52 96 07/21/20 01:49 98.2 F 65 18 96/64 100 Intake and Output 07/20/20 07/21/20 07/21/20 22:59 06:59 14:59 Output Total 100 Balance -100 Output: Urine 100 Other: # Voids 0 1 Weight 158.757 kg Results - Lab Results Most recent lab results Calcium 8.6 mg/dL (8.4-10.2) 07/21/20 01:54 Phosphorus 6.4 mg/dL (2.5-4.5) H 07/21/20 01:54 Magnesium 1.9 mg/dL (1.6-2.3) 07/21/20 01:54 07/21/20 01:54 07/21/20 01:54 Assessment and Plan Plan: Assessment: 1. Acute allograft dysfunction mostly prerenal secondary to hypovolemia, hypotension and poor intake. Creatinine 2.6 on admission. 2. Chronic kidney disease stage III with baseline creatinine 1-1.2 secondary to nephrosclerosis and long-term calcineurin inhibitor use and solitary kidney. 3. Hypovolemic hyponatremia. 4. Metabolic acidosis secondary to acute kidney injury and lactic acidosis. 5. Status post donor renal allograft in 2008. 6. Liver metastasis. 7. Leukocytosis. Plan: Maintain IV fluids. Check bladder scan to rule out urinary retention. Check cyclosporine level. Maintain home antirejection medications. Hold amlodipine for systolic blood pressure less than 125. Continue to monitor renal function and urine output. Follow-up cultures. Add oral bicarb. Thank you for the consultation. I will continue to follow the patient with you during his hospital stay.
[2020-07-21] MEDS: SODIUM BICARBONATE TAB 650 MG TAB PO SCH ×2 (11:49→21:06)
[2020-07-21] MEDS: PIPERACILLIN-TAZOBACTAM 3.375 GM in SODIUM CHLORIDE 0.9% 100 ML IVPB SCH ×2 (13:34→20:44)
[2020-07-21 17:02] LABS: Appearance,Urine Cloudy (Clear); Bilirubin,Urine 1+ (Negative); Blood,Urine Negative (Negative); Color,Urine Dark Yellow; Glucose,Urine (UA) Negative (Negative); Ketones,Urine Negative (Negative); Leukocyte Esterase,Urine Negative (Negative); Mucus,Urine Rare /hpf; Nitrite,Urine Negative (Negative); Protein,Urine 1+ (Negative); RBC,Urine <1 /hpf (0-5); Specific Gravity,Urine 1.023 (1.001-1.035); Urobilinogen,Urine <2.0 mg/dL (<2.0); WBC,Urine 3 /hpf (0-5)
[2020-07-21] MEDS: MELATONIN 5 MG TABLET PO SCH (21:06)
[2020-07-21] MEDS: ATORVASTATIN 20 MG TAB PO SCH (21:06)
[2020-07-22] MEDS: SODIUM CHLORIDE 0.9% 1,000 ML IV SCH ×3 (05:06→20:45)
[2020-07-22] MEDS: PIPERACILLIN-TAZOBACTAM 3.375 GM in SODIUM CHLORIDE 0.9% 100 ML IVPB SCH ×3 (05:06→20:38)
--- NOTE | 2020-07-22 08:25 | P.PN ---
Subjective Progress Note Date: 07/22/20 Principal diagnosis: This is a continue present 70-year-old white male with metastatic rectal cancer and underlying history of renal allograft. The patient is quite fatigued but p ain-free as of this morning. We had a long discussion about his overall prognosis and he wishes to consult hospice prior to discharge. The patient seems to be tolerate diet without any new voiding difficulties. Objective - Vital Signs Vital signs: Vital Signs Temp 97.4 F L 07/22/20 07:48 Pulse 96 07/22/20 07:48 Resp 16 07/22/20 07:48 BP 102/68 07/22/20 07:48 Pulse Ox 94 L 07/22/20 07:48 Intake & Output 07/21/20 07/22/20 07/22/20 18:59 06:59 18:59 Intake Total 1660 1560 Output Total 100 100 Balance 1560 1460 Weight 158.757 kg Intake: Intake, IV Titration 1660 1560 Amount Piperacillin-Tazobactam 3 100 .375 gm In Sodium Chloride 0.9% 100 ml @ 25 mls/hr IVPB Q8H [facility] Rx#: [id number] Sodium Chloride 0.9% 1, 1560 000 ml @ 130 mls/hr IV . Q7H42M [facility] Rx#:[id number] Sodium Chloride 0.9% 1, 1560 000 ml @ 130 mls/hr IV . Q7H42M [facility] Rx#:[id number] Output: Urine 100 100 Other: # Voids 3 - Constitutional General appearance: Present: no acute distress - EENT Eyes: Absent: abnormal pupil - Neck Neck: Absent: lymphadenopathy - Respiratory Respiratory: bilateral: CTA - Cardiovascular Rhythm: regular Heart sounds: normal: S1, S2 Abnormal Heart Sounds: Absent: S3 Gallop - Gastrointestinal General gastrointestinal: Present: soft. Absent: tenderness - Integumentary Integumentary: Absent: cellulitis - Psychiatric Psychiatric: Present: A&O x's 3 - Labs CBC & Chem 7: 07/21/20 01:54 07/21/20 01:54 Labs: Abnormal Lab Results - Last 24 Hours (Table) 07/21/20 Range/Units 16:15 Urine Protein 1+ H (Negative) Urine Bilirubin 1+ H (Negative) Urine Mucus Rare H (None) /hpf Microbiology - Last 24 Hours (Table) 07/21/20 03:21 Blood Culture - Preliminary Blood No Growth after 24 hours Assessment and Plan (1) Dehydration Current Visit: Yes Status: Acute Code(s): E86.0 - DEHYDRATION SNOMED Code(s): 88919840 (2) Lactic acidosis Current Visit: Yes Status: Acute Code(s): E87.2 - ACIDOSIS SNOMED Code(s): 37230245 (3) Leukocytosis Current Visit: Yes Status: Acute Code(s): D72.829 - ELEVATED WHITE BLOOD CELL COUNT, UNSPECIFIED SNOMED Code(s): 744835242 (4) Liver metastases Current Visit: Yes Status: Acute Code(s): C78.7 - SECONDARY MALIG NEOPLASM OF LIVER AND INTRAHEPATIC BILE DUCT SNOMED Code(s): 71143977 (5) Colostomy status Current Visit: No Status: Acute Code(s): Z93.3 - COLOSTOMY STATUS SNOMED Code(s): 153008268 (6) History of rectal cancer Current Visit: No Status: Acute Code(s): Z85.048 - PRSNL HX OF MALIG NEOPLM OF RECTUM, RECTOSIG JUNCT, AND ANUS SNOMED Code(s): 314789425 (7) History of renal transplant Current Visit: No Status: Acute Code(s): Z94.0 - KIDNEY TRANSPLANT STATUS SNOMED Code(s): 070997463 Plan: Appreciate nephrology input. Due to his wishes and overall prognosis, we will consult hospice. Anticipate discharge in next 24 hours. Prognosis is relatively poor Time with Patient: Greater than 30
[2020-07-22] MEDS: SERTRALINE 50 MG TAB PO SCH (09:02)
[2020-07-22] MEDS: DOCUSATE 100 MG CAP PO SCH ×2 (09:02→20:37)
[2020-07-22] MEDS: ENOXAPARIN 30 MG/0.3 ML SYRINGE SQ SCH (09:02)
[2020-07-22] MEDS: predniSONE 5 MG TAB PO SCH ×2 (09:02→20:37)
[2020-07-22] MEDS: SODIUM BICARBONATE TAB 650 MG TAB PO SCH ×2 (09:02→20:38)
[2020-07-22] MEDS: MULTIVITAMINS, THERA 1 EACH TAB PO SCH (09:02)
[2020-07-22] MEDS: ASPIRIN 81 MG PO SCH (09:02)
[2020-07-22] MEDS: PANTOPRAZOLE 40 MG/10 ML VIAL IV SCH (09:02)
[2020-07-22] MEDS: allopurinoL 100 MG TAB PO SCH (09:02)
[2020-07-22] MEDS: ISOSORBIDE MONONITRATE ER 30 MG TAB.ER.24H PO SCH (09:02)
[2020-07-22] MEDS: cycloSPORINE 25 MG CAP PO SCH ×2 (09:02→20:37)
[2020-07-22] MEDS: METOPROLOL TARTRATE 50 MG TAB PO SCH ×2 (09:03→20:37)
[2020-07-22] MEDS: amLODIPine 5 MG TAB PO SCH (09:03)
[2020-07-22 09:32] LABS: HCT 28.5 % (39.6-50.0); HGB 8.5 g/dL (13.0-17.0); MCH 22.6 pg (27.0-32.0); MCHC 29.8 g/dL (32.0-37.0); MCV 75.8 fL (80.0-97.0); Mean Platelet Volume 10.8 fL (9.5-12.2); Platelet Count 385 X 10*3/uL (140-440); RBC 3.76 X 10*6/uL (4.40-5.60); RDW 21.7 % (11.5-14.5); WBC 25.05 X 10*3/uL (4.50-10.00)
[2020-07-22 10:09] LABS: African American GFR (CKD) 25.5 (60.0-200.0); Albumin 2.6 g/dL (3.80-4.90); Albumin/Globulin Ratio 1.24 (1.60-3.17); Anion Gap 17.8 mmol/L (4.00-12.00); BUN/Creat Ratio 27.14 Ratio (12.00-20.00); Calcium 7.8 mg/dL (8.7-10.3); Carbon Dioxide 14.2 mmol/L (21.6-31.8); Globulin 2.1 g/dL (1.6-3.3); Magnesium 1.9 mg/dL (1.5-2.4); Potassium 5.1 mmol/L (3.5-5.5); Total Bilirubin 3.4 mg/dL (0.2-1.2); Total Protein 4.7 g/dL (6.2-8.2)
--- NOTE | 2020-07-22 12:08 | P.PN ---
Subjective Patient is seen in follow-up for acute allograft dysfunction and renal transplant management. Renal function is slightly worse today. He is mainta ined on IV fluids. Oral intake is poor. Has been voiding. Hospice consulted today. Vital signs are stable. General: The patient appeared well nourished and normally developed. HEENT: Head exam is unremarkable. Neck is without jugular venous distension. LUNGS: Breath sounds decreased. HEART: Rate and Rhythm are regular. ABDOMEN: Soft, nontender. Obese. EXTREMITITES: No edema. Objective - Vital Signs Vital signs: Vital Signs Temp 97.4 F L 07/22/20 07:48 Pulse 96 07/22/20 07:48 Resp 16 07/22/20 07:48 BP 102/68 07/22/20 07:48 Pulse Ox 94 L 07/22/20 07:48 Intake & Output 07/21/20 07/22/20 07/22/20 18:59 06:59 18:59 Intake Total 1660 1560 Output Total 100 100 Balance 1560 1460 Weight 158.757 kg Intake: Intake, IV Titration 1660 1560 Amount Piperacillin-Tazobactam 3 100 .375 gm In Sodium Chloride 0.9% 100 ml @ 25 mls/hr IVPB Q8H [facility] Rx#: [id number] Sodium Chloride 0.9% 1, 1560 000 ml @ 130 mls/hr IV . Q7H42M [facility] Rx#:[id number] Sodium Chloride 0.9% 1, 1560 000 ml @ 130 mls/hr IV . Q7H42M [facility] Rx#:[id number] Output: Urine 100 100 Other: # Voids 3 - Labs CBC & Chem 7: 07/22/20 04:57 07/22/20 04:57 Labs: Abnormal Lab Results - Last 24 Hours (Table) 07/21/20 07/22/20 07/22/20 Range/Units 16:15 04:57 04:57 WBC 25.05 H (4.50-10.00) X 10*3/uL RBC 3.76 L (4.40-5.60) X 10*6/uL Hgb 8.5 L (13.0-17.0) g/dL Hct 28.5 L (39.6-50.0) % MCV 75.8 L (80.0-97.0) fL MCH 22.6 L (27.0-32.0) pg MCHC 29.8 L (32.0-37.0) g/dL RDW 21.7 H (11.5-14.5) % Absolute Nucleated RBC 0.02 H (0.00-0.00) X 10*3/uL NRBC/100 WBC Diff 0.1 H (0.0-0.0) /100 WBCS Sodium 132 L (135-145) mmol/L Carbon Dioxide 14.2 L (21.6-31.8) mmol/L Anion Gap 17.80 H (4.00-12.00) mmol/L BUN 76.0 H (9.0-27.0) mg/dL Creatinine 2.8 H (0.6-1.5) mg/dL Est GFR (CKD-EPI)AfAm 25.5 L (60.0-200.0) Est GFR (CKD-EPI)NonAf 22.0 L (60.0-200.0) BUN/Creatinine Ratio 27.14 H (12.00-20.00) Ratio Calcium 7.8 L (8.7-10.3) mg/dL Total Bilirubin 3.4 H (0.2-1.2) mg/dL AST 328 H (14-35) U/L ALT 114 H (10-49) U/L Alkaline Phosphatase 933 H (41-126) U/L Total Protein 4.7 L (6.2-8.2) g/dL Albumin 2.60 L (3.80-4.90) g/dL Albumin/Globulin Ratio 1.24 L (1.60-3.17) g/dL Urine Protein 1+ H (Negative) Urine Bilirubin 1+ H (Negative) Urine Mucus Rare H (None) /hpf Microbiology - Last 24 Hours (Table) 07/21/20 03:21 Blood Culture - Preliminary Blood No Growth after 24 hours Assessment and Plan Plan: Assessment: 1. Acute allograft dysfunction mostly prerenal secondary to hypovolemia, hypotension and poor intake. Creatinine 2.6 on admission - 2.8 today. No hydronephrosis noted on CAT scan. Bladder scan done. No evidence of urinary retention. 2. Chronic kidney disease stage III with baseline creatinine 1-1.2 secondary to nephrosclerosis and long-term calcineurin inhibitor use and solitary kidney. 3. Hypovolemic hyponatremia. Improved with IV hydration. 4. Metabolic acidosis secondary to acute kidney injury and lactic acidosis maintained on oral bicarbonate. 5. Status post donor renal allograft in 2008. 6. Liver metastasis. Plan: Maintain IV fluids - decrease rate to 75 mL an hour. Follow-up cyclosporine level. Maintain home antirejection medications. Hold anti-hypertensives for systolic blood pressure less than 125. Continue to monitor renal function and urine output. Follow-up cultures. Increase dose of oral bicarbonate. Hospice consulted today. Overall prognosis guarded.
--- NOTE | 2020-07-22 13:55 | CDI ---
Documentation Clarification Form Date: 07/22/2020 01:35:50 PM From: Maggie CramerPabonINES geronimo, CCDS Admit Date: 07/21/2020 04:03:00 AM Patient Name: Cirilo Adams Visit Number: [id number] Discharge Date: ATTENTION: The Clinical Documentation Specialists (CDI) and [facility] Coding Staff appreciate your assistance in clarifying documentation. Please respond to the clarification below the line at the bottom and electronically sign. The CDI & [facility] Coding staff will review the response and follow-up if needed. Please note: Queries are made part of the Legal Health Record. If you have any questions, please contact the author of this message via ITS. Dr. Jose Antonio Escobar: The patients principal diagnosis has not been clearly identified and requires clarification. Per the 07/21 History & Physical, the patient is admitted for dehydration but overall prognosis is poor secondary to history renal transplant & metastatic rectal cancer. Per the 07/21 Nephrology Consult: Consulted for acute allograft dysfunction. Assessment: Acute Allograft Dysfunction mostly prerenal secondary to Hypovolemic Hypotension and poor oral intake. 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 Hypovolemic Hyponatremia, Metabolic Acidosis secondary to Acute Kidney Injury and Lactic Acidosis. Clinical Indicators: The patient presented to the ED on 07/21 with weakness, not acting appropriately per his and diminished oral intake with diminished appetite, nausea, vomiting and SOB. ED Impression: Leukocytosis, Liver metastases, Dehydration, Hyponatremia, Lactic Acidosis. History/Risk factors: Per the 07/21 History & Physical: History of esophageal cancer and metastatic rectal cancer status post chemo & radiation with colostomy, bedridden; Hyperlipidemia, Hypertension, [place], Kidney transplant in 2008. 07/21 VS: T 98.2, P 65, R 18, BP 96/64, PO 100 RA BMI: 53.2 07/21 LAB: WBC 21.3, Hgb 10.0, Plt Count 453, Neutrophils 18.4, [place] 1.1, PT 12.5, INR 1.2, Na 128, Chloride 97, CO2 17, BUN 69, Creatinine 2.60, Lactic Acid 4.2 - 1.7, Phosphorus 6.4, Total Bili 3.8, AST 277, ALT 87, Alk Phos 941, Total Protein 5.8, Albumin 2.5. UA: Dark yellow, cloudy, 1+ protein, 1+ Bilirubin. COVID neg. 07/21 RAD: CXR: Cardiomegaly, no acute findings. CT Abd/Pelvis: Very nodular heterogeneous appearance to the liver likely representing liver metastases. Splenomegaly. Small amount of ascites. Left colostomy with extensive abnormal infiltration in the perirectal and presacral fat. Treatment 07/21: IV fluid 1,000 mls @ 130 mls/hr q7H, IV Ampicillin 200 mls/hr, IV fluid bolus 1,000 mls @ 999 mls/hr q1H, IV Zosyn 200 mls/hr, IV fluid 1,000 mls @ 75 mls/hr q13H, IV Dilaudid 1 mg q6H PRN, po Cyclosporine 75 mg BID, po Na Bicarb 650 mg BID. In your professional opinion, can you please clarify which diagnosis, after study, accounted for the patients presenting symptoms and was the reason chiefly responsible for the admission? o Dehydration-This most likely is the correct diagnosis o Acute Renal Failure o Acute Allograft Dysfunction o Other, please specify: (Last Revision: September 2017) MTDD
--- NOTE | 2020-07-22 15:53 | P.DS ---
Providers Date of admission: 07/21/20 04:03 Attending physician: Jose Antonio Escobar Consults: 07/21/20 08:14 Consult Physician Routine Consulting Provider: Ortiz Sanders Consult Reason/Comments: renal failure, kidney transplant patient Do you want consulting provider notified?: Yes Primary care physician: Jose Antonio Escobar - Discharge Diagnosis(es) (1) Dehydration Current Visit: Yes Status: Acute (2) Lactic acidosis Current Visit: Yes Status: Acute (3) Leukocytosis Current Visit: Yes Status: Acute (4) Liver metastases Current Visit: Yes Status: Acute (5) Colostomy status Current Visit: No Status: Acute (6) History of rectal cancer Current Visit: No Status: Acute (7) History of renal transplant Current Visit: No Status: Acute Hospital Course: This is a discharge summary on a patient of 70-year-old white male with known history of renal allograft with history of dehydration. Immobility is also related to the fact that the patient has metastatic rectal carcinoma. After evaluating the patient and treating his pain appropriately, the patient has decided for hospice treatment given his overall prognosis. The patient will be discharged in stable but poor prognostic indications for hospice and 07/23/2020 Patient Condition at Discharge: Serious Plan - Discharge Summary Discharge Rx Participant: No New Discharge Prescriptions: Continue Sertraline [Zoloft] 50 mg PO DAILY predniSONE 5 mg PO BID amLODIPine [Norvasc] 5 mg PO DAILY Metoprolol Tartrate [Lopressor] 50 mg PO BID cycloSPORINE [SandIMMUNE] 75 mg PO BID Aspirin [Adult Low Dose Aspirin EC] 81 mg PO DAILY Pantoprazole Sodium [Protonix] 40 mg PO DAILY Isosorbide Mononitrate ER [Imdur] 30 mg PO DAILY Allopurinol [Zyloprim] 200 mg PO DAILY Hydrochlorothiazide [hydroCHLOROthiazide] 12.5 mg PO DAILY Multivitamins, Thera [Multivitamin (formulary)] 1 tab PO DAILY Acetaminophen [Tylenol] 500 mg PO HS Melatonin 5 mg PO HS Docusate [Colace] 100 mg PO BID #30 capsule HYDROcodone/APAP 10-325MG [[place] 10-325] 1 tab PO Q4H PRN PRN Reason: Pain Atorvastatin Calcium [Lipitor] 20 mg PO HS Discharge Medication List Acetaminophen [Tylenol] 500 mg PO HS 04/20/20 [History] Allopurinol [Zyloprim] 200 mg PO DAILY 04/20/20 [History] Aspirin [Adult Low Dose Aspirin EC] 81 mg PO DAILY 04/20/20 [History] Hydrochlorothiazide [hydroCHLOROthiazide] 12.5 mg PO DAILY 04/20/20 [History] Isosorbide Mononitrate ER [Imdur] 30 mg PO DAILY 04/20/20 [History] Melatonin 5 mg PO HS 04/20/20 [History] Metoprolol Tartrate [Lopressor] 50 mg PO BID 04/20/20 [History] Multivitamins, Thera [Multivitamin (formulary)] 1 tab PO DAILY 04/20/20 [History] Pantoprazole Sodium [Protonix] 40 mg PO DAILY 04/20/20 [History] Sertraline [Zoloft] 50 mg PO DAILY 04/20/20 [History] amLODIPine [Norvasc] 5 mg PO DAILY 04/20/20 [History] cycloSPORINE [SandIMMUNE] 75 mg PO BID 04/20/20 [History] predniSONE 5 mg PO BID 04/20/20 [History] Docusate [Colace] 100 mg PO BID #30 capsule 04/28/20 [Rx] Atorvastatin Calcium [Lipitor] 20 mg PO HS 05/06/20 [History] HYDROcodone/APAP 10-325MG [[place] 10-325] 1 tab PO Q4H PRN 05/06/20 [History] Follow up Appointment(s)/Referral(s): [facility] [REFERRING] - Jose Antonio Escobar MD [Primary Care Provider] - 1-2 days Discharge Disposition: HOME WITH HOSPICE
[2020-07-22] MEDS: MELATONIN 5 MG TABLET PO SCH (20:37)
[2020-07-22] MEDS: ATORVASTATIN 20 MG TAB PO SCH (20:37)
[2020-07-23] MEDS: SODIUM CHLORIDE 0.9% 1,000 ML IV SCH (02:47)
[2020-07-23] MEDS: PIPERACILLIN-TAZOBACTAM 3.375 GM in SODIUM CHLORIDE 0.9% 100 ML IVPB SCH (04:58)
[2020-07-23 08:01] VITALS: BP 99/64; PULSE 86; RESP 20; TEMP 97.5
[2020-07-23] MEDS: amLODIPine 5 MG TAB PO SCH (08:33)
[2020-07-23] MEDS: ASPIRIN 81 MG PO SCH (08:33)
[2020-07-23] MEDS: DOCUSATE 100 MG CAP PO SCH (08:33)
[2020-07-23] MEDS: allopurinoL 100 MG TAB PO SCH (08:33)
[2020-07-23] MEDS: MULTIVITAMINS, THERA 1 EACH TAB PO SCH (08:33)
[2020-07-23] MEDS: SODIUM BICARBONATE TAB 650 MG TAB PO SCH (08:33)
[2020-07-23] MEDS: PANTOPRAZOLE 40 MG/10 ML VIAL IV SCH (08:33)
[2020-07-23] MEDS: predniSONE 5 MG TAB PO SCH (08:33)
[2020-07-23] MEDS: SERTRALINE 50 MG TAB PO SCH (08:33)
[2020-07-23] MEDS: cycloSPORINE 25 MG CAP PO SCH (08:34)
[2020-07-23] MEDS: ENOXAPARIN 30 MG/0.3 ML SYRINGE SQ SCH (08:34)
== END 2020-07-23 10:06 | disposition hospice, home (50) | DRG 641 ==
LOC: EC 01:37 → 6NMEDSUR 04:03
PROVIDERS: ADMIT Family Medicine; ATTEND Family Medicine
DX: E86.0 Dehydration (principal); N17.9 Acute kidney failure, unspecified; C78.7 Secondary malignant neoplasm of liver and intrahepatic bile duct; Z94.0 Kidney transplant status; C20 Malignant neoplasm of rectum; E78.5 Hyperlipidemia, unspecified; E66.9 Obesity, unspecified; E86.1 Hypovolemia; E87.1 Hypo-osmolality and hyponatremia; Z20.822 Contact with and (suspected) exposure to COVID-19; Z51.5 Encounter for palliative care; Z96.1 Presence of intraocular lens; J45.909 Unspecified asthma, uncomplicated; N18.30 Chronic kidney disease, stage 3 unspecified; E87.2 Acidosis; I12.9 Hypertensive chronic kidney disease with stage 1 through stage 4 chronic kidney disease, or unspecified chronic kidney disease; I25.2 Old myocardial infarction; Z79.82 Long term (current) use of aspirin; Z79.52 Long term (current) use of systemic steroids; Z79.899 Other long term (current) drug therapy; Z85.01 Personal history of malignant neoplasm of esophagus; Z85.048 Personal history of other malignant neoplasm of rectum, rectosigmoid junction, and anus; Z93.3 Colostomy status; Z98.890 Other specified postprocedural states; Z98.42 Cataract extraction status, left eye; Z98.41 Cataract extraction status, right eye; Z80.9 Family history of malignant neoplasm, unspecified
CPT/HCPCS: 36415; 71046; 74176; 80053; 81001; 82550; 83605; 83735; 83880; 84100; 84443; 84484; 85025; 85027; 85610; 85730; 87040; 87635; 93005; 96361; 96365; 99285